=== PATIENT | female | born 1955 | race Caucasian/White ===

== ENCOUNTER 2024-10-03 12:49 | Outpatient (AMB) | payer MEDICARE, MEDICAID, SELFPAY ==
--- NOTE | 2024-10-03 13:02 | A.OFFVIS_ITS ---
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 Allergies metformin Allergy (Severe, Verified 10/03/24 13:13) Diarrhea milk Allergy (Severe, Verified 10/03/24 13:11) Diarrhea tetracycline Allergy (Severe, Verified 10/03/24 13:13) Joint Pain empagliflozin (From Jardiance) Allergy (Mild, Verified 10/03/24 13:13) vaginal yeast sitagliptin (From Januvia) Allergy (Mild, Verified 10/03/24 13:13) vaginal yeast statins Allergy (Severe, Uncoded 10/03/24 13:13) Muscle Pain Medication List - Last Reconciled 10/03/24 by Micheal Macedo MD amlodipine 5 mg PO DAILY aspirin 81 mg PO DAILY evolocumab (Repatha SureClick) 140 mg subcut Q2W glipizide ER 10 mg PO DAILY hydrochlorothiazide 25 mg PO DAILY insulin glargine (Lantus Solostar U-100 Insulin) units subcut levothyroxine mcg PO lisinopril 20 mg PO BID meclizine mg PO omeprazole 20 mg PO DAILY potassium chloride ER 10 mEq PO DAILY semaglutide (Ozempic) mg subcut HPI Comments Details: The patient is a 68-year-old female presenting with chest pain. The chest pain has been present for approximately one year. The pain is described as discomfort and sometimes sharp, occurring with physical activities such as doing laundry or walking. The patient reports associated symptoms of lightheadedness, dizziness, shortness of breath, and fatigue, particularly after exertion. She also experiences swelling in her legs and knees. The patient has a history of essential hypertension, hyperlipidemia, diabetes mellitus, thyroid disorder, and osteoporosis. 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 CAT scan of the chest done for pulmonary nodules had reported [id number] coronary artery calcification. Additionally, per patient she also had a carotid ultrasound that had described stenosis. [facility] Medical History (Updated 10/03/24 @ 14:12 by Micheal Macedo MD) High cholesterol High blood pressure Diabetes Surgical History (Updated 10/03/24 @ 13:21 by Afshan Gonzales) History of thyroid surgery Family History (Updated 10/03/24 @ 13:22 by Afshan Gonzales) Mother Heart failure Father Stroke Heart attack Heart failure Colon cancer Social History (Updated 10/03/24 @ 13:22 by Afshan Gonzales) Alcohol intake: never Patient Tobacco Use Status: Former Tobacco user Review of Systems Const Denies weakness ENT Denies dizziness Card Reports chest pain, Reports chest pain at rest, Reports chest pain with activity, Denies syncope, Denies rapid heart rate, Denies pedal edema, Denies edema, Reports irregular heart rhythm, Denies leg edema, Denies lightheadedness, Reports palpitations, Reports dyspnea, Reports dyspnea on exertion and Reports orthopnea Resp Denies cough, Reports dyspnea and Reports dyspnea on exertion GI Denies hematochezia and Denies change in stool character Musc Denies abnormal gait, Denies muscle cramps, Denies muscle weakness, Denies numbness, Denies radiating pain into limb and Denies tingling Neuro Denies abnormal gait, Denies dizziness, Denies syncope, Denies numbness, Denies tingling and Denies weakness Endo Reports palpitations Physical Exam Vital Signs: Last Vital Signs Pulse 69 10/03/24 13:09 BP 140/68 H 10/03/24 13:09 BMI result Body Mass Index 33.1 Const General: comfortable and no acute distress Orientation/consciousness: patient oriented x3 HEENT Other: Unremarkable Head: Yes normal to inspection Neck Neck: Yes normal visual inspection Chest Chest palpation & inspection: normal inspection of the chest Resp Auscultation: clear to auscultation bilaterally Cardio Palpation: normal PMI Heart sounds: S1 normal heart sound present, S2 normal heart sound present, no gallops, no murmurs and no rubs GI Palpation (GI): Soft to palpation Back/Spine/Pelvis Other: unremarkable Skin General skin exam: no rashes or lesions noted Neuro General: patient oriented x3 Extrem General: Yes normal to inspection Psych Mental Status: mental status grossly normal Office Procedures EKG Details: EKG with underlying sinus rhythm at 69/Min; sinus arrhythmias; no ischemic changes; [place] [id number], Complete Assessment & Plan Assessment & Plan (1) Atherosclerotic cardiovascular disease: Code(s): I25.10 - Atherosclerotic heart disease of [place] coronary artery without angina pectoris Category: Medical (2) Precordial chest pain: Code(s): R07.2 - Precordial pain Category: Medical (3) Type 2 diabetes mellitus with unspecified complications: Code(s): E11.8 - Type 2 diabetes mellitus with unspecified complications Category: Medical (4) Primary hypertension: Code(s): I10 - Essential (primary) hypertension Category: Medical (5) Hyperlipidemia, unspecified: Code(s): E78.5 - Hyperlipidemia, unspecified Category: Medical Plan The plan includes initiating a stress test to evaluate the chest pain and determine the presence of any coronary artery blockages. If the stress test results are abnormal, an angiogram will be considered to further assess the coronary arteries. An ultrasound of the heart will be performed to evaluate cardiac function and identify any structural abnormalities. Coordination with the patient's primary care physician will be necessary to obtain recent lab results and ensure comprehensive management of her chronic conditions. Discussion Notes I discussed with the patient the likelihood of coronary artery blockages given her symptoms and cardiac risk factors. We talked about starting with a stress test and potentially proceeding to an angiogram. I explained the importance of evaluating her heart function through an ultrasound and coordinating with her primary care physician for lab results. Patient was informed and verbally consented to the use of an ambient scribe for clinic note documentation during this visit. Orders: Orders CA echo transthoracic complete Today I25.10 - Atherosclerotic heart disease of [place] coronary artery without angina pectoris, R07.2 - Precordial pain CA stress test Today R07.2 - Precordial pain NM cardiolite stress test Today R07.2 - Precordial pain Patient Instructions: - Schedule a stress test and echocardiogram as soon as possible. - Monitor for any worsening of symptoms and seek immediate care if necessary. Coding Level of Care Code New Pt Level 4 (90716) Complex EM visit Add On G2211 Diagnoses Atherosclerotic cardiovascular disease I25.10 Precordial chest pain R07.2 Type 2 diabetes mellitus with unspecified complications E11.8 Primary hypertension I10 Hyperlipidemia, unspecified E78.5 CPT Codes EKG - CPT: 25305-[id number], Complete ([id number])
[2024-10-03 13:09] VITALS: BP 140/68; PULSE 69; BMI 33.1
--- OUTSIDE RECORDS SUMMARY | 2024-10-03 13:42 | XMS_ITS | Clinical Summary ---
Author Organization [facility] Address [address] [place] [address] Care Team Providers Care Voting Machine Mechanic Name Role Phone Afshan Quiroz Sophie Primary Care Provider [phone] Allergies Active Allergy Reactions Criticality Noted Date Comments Amoxicillin Yeast infection 12/16/2016 Cyclobenzaprine Muscle Pain 12/16/2016 Fluconazole Constipation 12/16/2016 Milk Unknown 12/16/2016 Simvastatin Muscle Pain 12/16/2016 Tetracyclines Unknown Medications * This document contains information received from the source organization and may not represent a complete record from that organization. ACETAMINOPHEN ORAL as needed (pain). Ac tive CALCIUM CARBONATE (CALCIUM 500 ORAL) Calcium TABS Refills: 0 Active Active hydroCHLOROth iazide (MICROZIDE) 12.5 mg capsule HydroCHLOROthiazide CAPS 25MG Qday, Quantity: 0; Refills: 0 Started 13-Jan-2007 Active 01/14/20 07 Active levothyroxine (SYNTHROID, LEVOTHROID) 112 mcg tablet Levothyroxine Sodium 112 MCG Oral Tablet TAKE 1 TABLET DAILY Quantity: 90; Refills: 0 Started 13-Jan-2007 Active 01/14/20 07 Active lisinopril (PRINIVIL,ZES TRIL) 30 mg tablet Lisinopril TABS 10MG Qday, Quantity: 0; Refills: 0 Started 13-Jan-2007 Active 01/14/20 07 Active POTASSIUM ORAL 10 mEq. Active simvastatin (ZOCOR) 80 mg tablet Simvastatin TABS Refills: 0 Active Active acetaminophen (TYLENOL) 500 mg tablet Acetaminophen TABS PRN PAIN Refills: 0 Started 14-Jul-2007 Active 07/14/19 08 Active lisinopril (PRINIVIL,ZES TRIL) 20 mg tablet Take 20 mg by mouth 2 times a day. Active cyanocobalami n 1,000 mcg tablet Take 1,000 mcg by mouth daily. Active zinc 50 mg tablet Take by mouth. Activ e metFORMIN (GLUCOPHAGE) 500 mg tablet Take 500 mg by mouth 2 times a day with meals. Active lovastatin (MEVACOR) 40 mg tablet Take 40 mg by mouth nightly. Active levothyroxine (SYNTHROID, LEVOTHROID) 125 mcg tablet Take 125 mcg by mouth daily. Active magnesium gluconate (MAGONATE) 27 mg (500 mg) tablet Take 500 mg by mouth daily. Active OMEGA-3S/DHA/ EPA/FISH OIL/D3 (VITAMIN-D + OMEGA-3 ORAL) Take 100 % by mouth daily. Active aspirin 81 mg EC tablet Take 81 mg by mouth daily. 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 Lumbar radiculopathy, chronic 02/19/2015 Lumbar spondylosis 02/19/2015 Myofascial pain 02/19/2015 Hip bursitis 02/19/2015 Leiomyoma 02/19/2015 Chronic Pain Syndrome 06/26/2008 Vision problems 06/26/2008 Family History Medical History Relation Name Comments Other Daughter Family history of Papillary thyroid carcinoma Other Father Family History of colon cancer Relation Name Status Comments Daughter Father Social History Tobacco Use Types Packs/Day Years Used Date Smoking Tobacco: Former Cigarettes Comments Unknown Sex and Gender Information Value Date Recorded Sex Assigned at Not on file Legal Sex Female 4:46 AM EDT Gender Identity Not on file Sexual Orientation Not on file Last Filed Vital Signs Vital Sign Reading Time Taken Comments Blood Pressure 131/77 12/17/2016 8:57 AM EDT Pulse 61 12/17/2016 8:57 AM EDT Temperature - - Respiratory Rate - - Oxygen Saturation - - Inhaled Oxygen Concentration - - Weight 86.2 kg (190 lb) 12/17/2016 8:57 AM EDT Height 154.9 cm (5' 1 ) 12/17/2016 8:57 AM EDT Body Mass Index 35.9 12/17/2016 8:57 AM EDT Plan of Treatment Health Maintenance Due Date Last Done Comments Cologuard 1955 Colon Cancer Screening 1955 Colonoscopy 1955 FOBT / Fit Test 1955 Hepatitis C Screening [address] Lung Cancer Screening (Baseline) 2004 Osteoporosis Screening 2004 Zoster Vaccines (1 of 2) 2004 Basic Metabolic Panel 12/31/2017 12/31/2016 , 02/01/2014, 07/09/2007 DTaP,Tdap,and Td Vaccines (1 - Tdap) 12/07/2018 2018 Pneumococcal Vaccine: 50+ Years (2 of 2 - PCV20 or PCV21) 12/25/2020 12/26/2019 Mammogram 10/11/2023 10/10/2021, 09/17, 10/10/2021 COVID-19 Vaccine ( - season) 2023 12/05/2020, 05/02/2020, 04/10/2020 Alcohol/Substance Use Screening 02/17/2024 Depression Screening and Follow-Up 02/17/2024 Health Care Proxy Review 02/17/2024 Social Drivers of Health Annual Screening 02/17/2024 Influenza Vaccine (#1) 2024 , 12/26/2019, 2018, Additional history exists RSV Vaccine (60+ years old and patients) (1 - 1-dose 75+ series) 2029 Hepatitis B Vaccines Aged Out No long er eligible based on patient's age to complete this topic Procedures * Due to [place] Propers law, this organization might not be sharing negative HIV tests. Procedure Name Priority Date/Time Associated Diagnosis Comments PATRICIA LEFT STEREOTACTIC BREAST BIOPSY Routine 10/10/2021 10:03 AM EDT Breast microcalcifications BASIC METABOLIC PANEL, OUTSIDE LAB Routine 12/31/2016 from Last 3 Months or Most Recently Relevant to Health Maintenance Results * Due to [place] state law, this organization might not be sharing negative HIV tests. * [facility] Left Stereotactic Breast Biopsy (10/10/2021 10:03 AM EDT) Anatomical Region Laterality Modality Breast Left Mammography Addenda Addendum by Allison Cardenas MD on 10/11/2021 8:45 PM EDT The results of the left breast biopsy demonstrate benign breast tissue with periductal sclerosis/fibroadenomatous change with associated microcalcifications. Negative for malignancy. These results are benign and concordant with imaging. Return to annual screening mammography is recommended. The patient's next bilateral screening mammogram will be due in July,. Narrative 10/10/2021 10:26 AM EDT [facility] Left Stereotactic Breast Biopsy PATRICIA Left Breast Specimen NC [facility] Left Diagnostic Digital Mammo Post US/MRI/Stereo INDICATIONS Kasi Sarmiento is a 65 y.o. female and is seen for: [facility] Left Stereotactic Breast Biopsy PATRICIA Left Breast Specimen NC [facility] Left Diagnostic Digital Mammo Post US/MRI/Stereo. PROCEDURE The procedure was explained to the patient including benefits and alternatives. The risks, including but not limited to infection and bleeding, were reviewed and the patient agreed to undergo the procedure, signing the consent form. Medications and allergies were reviewed. A timeout procedure was performed. The breast was prepped for the procedure and the area was anesthetized with a local anesthetic. The patient's Left breast was imaged with the [facility] stereotactic biopsy unit, and the following findings were obtained: Grouped calcifications in the left central breast. An Eviva needle was placed in the target using superior approach. Then one pass was made through the area and six specimens were obtained. A stoplight shaped micromarker was placed at the site of the procedure. Specimen radiograph demonstrates calcifications in some of the core samples. COMPLICATIONS The patient experienced no complications during the procedure. POST PROCEDURE MAMMOGRAM The patient was then moved to a digital mammographic room where CC, MLO and ML90 full field digital mammographic images of the breast were obtained. These show satisfactory placement of the micromarker. IMPRESSION Successful stereotactic guided core biopsy of grouped calcifications in the left upper central breast. Pathology pending. Once the biopsy results are known concordance may be determined and an addendum to this report may be issued. As the attending physician, I certify that I was present in the room during the entire procedure. I have personally reviewed the images and agree with the above report. If this radiology report contains a blank impression section, it is an incomplete radiology report. Please contact the interpreting radiologist or applicable radiology division as soon as possible to obtain the completed interpretation. Afshan Quiroz IMG BI PROCEDURES Edited Result - Final * Basic Metabolic Panel, Outside Lab (12/31/2016) Blood specimen (specimen) Structure of peripheral vein / Unknown us Angel Harden MD LAB BLOOD ORDERABLES Final Res ult from Last 3 Months or Most Recently Relevant to Health Maintenance Insurance 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
== END 2024-10-03 13:36 | disposition home or self-care (01) ==
LOC: HO.HCS 12:50
PROVIDERS: Visit Provider Internal Medicine
DX: I25.10 Atherosclerotic heart disease of native coronary artery without angina pectoris (principal); R07.2 Precordial pain; E11.8 Type 2 diabetes mellitus with unspecified complications; I10 Essential (primary) hypertension; E78.5 Hyperlipidemia, unspecified
CPT/HCPCS: 93010; 99204; G2211

== ENCOUNTER → 2024-10-03 12:49 | Outpatient (BNVA) | payer MEDICARE, MEDICAID, SELFPAY | PROVIDERS: Visit Provider Internal Medicine | DX: R07.2 Precordial pain (principal); I25.10 Atherosclerotic heart disease of native coronary artery without angina pectoris; E11.8 Type 2 diabetes mellitus with unspecified complications; I10 Essential (primary) hypertension; E78.5 Hyperlipidemia, unspecified | CPT/HCPCS: 93005; 99202 ==

== ENCOUNTER → 2024-11-08 13:43 | Outpatient (REF) | payer MEDICARE, MEDICAID, SELFPAY ==
--- NOTE | 2024-11-08 13:47 | CA_ITS ---
Transthoracic Echocardiogram Amended Patient (Last, First, Middle): Kasi Sarmiento, Gender: F Date of : 1955 Age: 68 Procedure Date: 11/08/2024 Procedure Type: Transthoracic Echocardiogram Location: OP Height: 154.94 cm Weight: 81.65 kg BSA: 1.81 m2 Heart Rate: bpm BP: 139 / 75 mmHg Clinical Advisor: Referring MD: Micheal Macedo MD Symptoms: I25.10 - Atherosclerotic heart disease of [place] coronary artery without... Study Quality: Adequate ECG Rhythm: Sinus Conclusions: - The left ventricular systolic function is normal. The calculated ejection fraction is 61% by biplane method. - No obvious valvular pathology seen on this study. - (requested to sign again) Findings Left Ventricle Normal left ventricular cavity size. There is mildly increased left ventricular wall thickness. The left ventricular systolic function is normal. The calculated ejection fraction is 61% by biplane method. There is no evidence of regional wall motion abnormalities. Diastolic function is normal for age. Right Ventricle Normal right ventricular cavity size. There is mildly decreased right ventricular systolic function. Aortic Valve There is a normal trileaflet aortic valve. There is no aortic valve stenosis. There is no aortic valve regurgitation. Mitral Valve The mitral valve appears normal. There is no mitral valve regurgitation. There is no mitral valve stenosis. Pulmonic Valve The pulmonic valve is likely normal. Tricuspid Valve Normal tricuspid valve structure. There is trace tricuspid valve regurgitation. There is no evidence of pulmonary hypertension. Great Vessels The asc aorta is normal in size. Venous The inferior vena cava is normal in size and collapses greater than 50% with inspiration. Pericardium/Pleural There is no evidence of pericardial effusion. Prior Study Comparison No prior study available for comparison. Recommendations, Care & Conclusions No obvious valvular pathology seen on this study. Measurements 2D Linear Measurements IVSd: 1.03 0.6-0.9/0.6-1.0 cm LVIDd: 3.40 3.9-5.3/4.2-5.9 cm LVIDd Index: 1.88 2.4-3.2/2.2-3.1 cm/m2 LVIDs: 2.40 2.0-3.6 cm LVPWd: 1.03 0.7-1.1 cm Ao Root: 2.80 2.1-3.5 cm LA Diam: 3.10 2.7-3.8/3.0-4.0 cm LAIDs Index: 1.71 1.5-2.3 cm/m2 LV Mass: 128.41 67-162/88-224 g LV Mass Index: 70.94 43-95/49-115 g/m2 LVOT Diam: 2.10 3.0+(-)1.3 cm 2D Volumes LA Vol: 27.00 2D Systolic Function EF 4C: 58.10 >55% EF 2C: 67.80 >55% EF BiP: 61.20 >55% Mitral Valve MV Pk E: 0.78 MV PK A: 0.81 MV Decel Time: 202.00 E/A: 1.00 E'Lateral: 11.10 E'Medial: 7.83 E/E' Med: 9.90 E/E' Lat: 7.00 PHT: 59.00 MVA PHT: 3.73 Decel [place]: 3.84 Aortic Valve AoV Pk Sunny: 1.56 AoV Mn Sunny: 0.95 AoV VTI: 0.38 AoV Pk Grad: 10.00 Aov Mn Grad: 4.00 MELISSA Cont.VTI: 2.67 LVOT LVOT Pk Sunny: 1.15 LVOT Mn Sunny: 0.71 LVOT VTI: 0.30 LVOT Pk Grad: 5.00 LVOT Mn Grad: 3.00 LVOT Diam: 2.10 LVOT Area: 3.46 Diastolic Function MV Pk E: 0.78 MV Pk A: 0.81 E/A: 1.00 E'Medial: 7.83 E/E' Med: 9.90 E' Laterial: 11.10 E/E' Lat: 7.00 Right Ventricle TAPSE (mm): 18.00 TVS' Sunny: 9.00 Tricuspid Valve TR Pk Sunny: 1.57 TR Pk Grad: 10.00 RA Press: 3.00 RVSP: 13.00 Great Vessels Aorta Ao Root-2D: 2.80 2.0-3.7 cm Ao Asc: 3.00 2.1-3.4 cm Pulmonary Valve PV Pk Sunny: 0.78 Peak PV Grad: 2.00 Updated in Other Vendor System with Status of Final Micheal Macedo MD electronically signed on 11/14/2024 11:14:27 AM with status of Final
--- OUTSIDE RECORDS SUMMARY | 2024-11-08 16:54 | XMS_ITS | Encounter Summary ---
Author Organization [facility] Address [address] [place] [address] Phone Care Team Providers Care Clerk General Office Name Role Phone Afshan Quiroz MD Primary Care Provider + Encounter Details Date Type Department Care Team (Late st Contact Info) Description 03/26/2018 Procedure Pass [facility] PERIOP DEPT [address] [place] [address] Social History Tobacco Use Types Packs/Day Years Used Date Smoking Tobacco: Former Cigarettes Q uit: 1996 Smokeless Tobacco: Never Alcohol Use Standard Drinks/Week Comments No 0 (1 standard drink = 0.6 oz pur e alcohol) Comments No Sex and Gender Information Value Date Recorded Sex Assigned at Not on file Legal Sex Female 1:46 PM EST Gender Identity Not on file Sexual Orientation Not on file documented as of this encounter Plan of Treatment Not on file documented as of this encounter Visit Diagnoses Not on filedocumented in this encounter Care Teams Clerk General Office Relationship Specialty Start Date End Date Afshan Quiroz MD [address] [place] [address] [address] [place] [id number] PCP - General Family Medicine 03/18/17 documented as of this encounter Additional Source Comments The information contained in this document represents components of the legal health record. It is not the complete legal health record.[facility]
--- OUTSIDE RECORDS SUMMARY | 2024-11-08 16:54 | XMS_ITS | Encounter Summary ---
Author Organization [facility] Address [address] [place] [address] Phone Care Team Providers Care Silverware Buffer Name Role Phone Afshan Quiroz MD Primary Care Provider + Encounter Details Date Type Department Care Team (Late st Contact Info) Description 06/08/2017 Procedure Pass [facility], [facility] [address] [place] [address] Social History Tobacco Use Types Packs/Day Years Used Date Smoking Tobacco: Former Smokeless Tobacco: Never Alcohol Use Standard Drinks/Week Comments No 0 (1 standard drink = 0.6 oz pur e alcohol) Comments Unknown Sex and Gender Information Value Date Recorded Sex Assigned at Not on file Legal Sex Female 1:46 PM EST Gender Identity Not on file Sexual Orientation Not on file documented as of this encounter Plan of Treatment Not on file documented as of this encounter Visit Diagnoses Not on filedocumented in this encounter Care Teams Silverware Buffer Relationship Specialty Start Date End Date Afshan Quiroz MD [address] [facility] [address] [place] [id number] PCP - General Family Medicine 03/18/17 documented as of this encounter Additional Source Comments The information contained in this document represents components of the legal health record. It is not the complete legal health record.[facility]
--- OUTSIDE RECORDS SUMMARY | 2024-11-08 16:54 | XMS_ITS | Clinical Summary ---
Author Organization [facility] Address [address] [facility] [address] [place] [address] Phone Care Team Providers Care Senior Examiner Name Role Phone Afshan Quiroz MD Primary Care Provider + Allergies Active Allergy Reactions Criticality Noted Date Comments Llfotmr-Vmy-Ajh Reductase Inhibitors 09/17/2017 Muscle aches Tetracyclines 06/08/2017 Unsure of reaction Medications levothyroxine (SYNTHROID, LEVOTHROID) 125 MCG tablet Take 125 mcg by mouth every morning. Active lisinopril (PRINIVIL,ZESTRI L) 20 MG tablet Take 20 mg by mouth 2 (two) times a day. Active hydroCHLOROthiaz pancho (HYDRODIURIL) 25 MG tablet Take 25 mg by mouth daily. Active lovastatin (MEVACOR) 40 MG tablet Take 40 mg by mouth nightly. Active metFORMIN (GLUCOPHAGE) 500 MG tablet Take 500 mg by mouth 2 (two) times a day with meals. Active amLODIPine (NORVASC) 5 MG tablet Take 5 mg by mouth daily. Active magnesium 200 mg Tab Take by mouth. Active cyanocobalamin (VIT B-12) 1000 MCG tablet Take 100 mcg by mouth daily. Active potassium chloride (KLOR-CON) 10 MEQ ER tablet Take 10 mEq by mouth 2 (two) times a day. Active Ca cit-D3-mag#11-zi gl-ioki-dtd-bor (CALTRATE 600+D) 600 mg calcium- 800 unit-50 mg Tab Take 1 tablet by mouth daily. Active glipiZIDE (GLUCOTROL) 10 MG 24 hr tablet Take 10 mg by mouth daily. Active Active Problems Problem Noted Date Diagnosed Date Hypertension 03/26/2018 Hyperlipidemia 03/26/2018 Diabetes mellitus 03/26/2018 Overview (03/26/2018): Niddm Disorder of thyroid 03/26/2018 Family History Medical History Relation Comments Diabetes Father Hypertension Father Diabetes Mother Hypertension Mother Macular degeneration Mother Relation Status Comments Father Mother Social History Tobacco Use Types Packs/Day Years Used Date Smoking Tobacco: Former Cigarettes Q uit: 1996 Smokeless Tobacco: Never Alcohol Use Standard Drinks/Week Comments No 0 (1 standard drink = 0.6 oz pur e alcohol) Education Answer Date Recorded Are you interested in more education? Not on melanie e 06/13/2022 Are you concerned about learning? Not on file 06/13/2022 No 06/13/2022 No 06/13/2022 Digital Access Answer Date Recorded No 07/12/2022 No 07/12/2022 No 07/12/2022 Reliable internet access at home? Not on file 07/12/2022 Device with a working camera? Not on file Comments No Sex and Gender Information Value Date Recorded Sex Assigned at Not on file Legal Sex Female 1:46 PM EST Gender Identity Not on file Sexual Orientation Not on file Last Filed Vital Signs Vital Sign Reading Time Taken Comments Blood Pressure 136/84 03/26/2018 4:30 PM EST Pulse 91 03/26/2018 4:30 PM EST Temperature 36.7 C (98 F) 03/26/2018 3:07 PM EST Respiratory Rate 22 03/26/2018 4:30 PM EST Oxygen Saturation 97% 03/26/2018 5:00 PM EST Inhaled Oxygen Concentration - - Weight 88.5 kg (195 lb) 03/26/2018 1:11 PM EST Height 157.5 cm (5' 2 ) 03/26/2018 1:11 PM EST Body Mass Index 35.67 03/26/2018 1:11 PM EST Plan of Treatment Health Maintenance Due Date Last Done Comments BLOOD PRESSURE 1955 CREATININE LEVEL 1954 HEMOGLOBIN A1C 1954 POTASSIUM LEVEL 1954 DEPRESSION SCREENING 1966 SMOKING Hx and SMOKELESS TOBACCO SCREENING 12/07/1967 HEPATITIS C SCREENING 1972 MAMMOGRAM 1994 COLOGUARD 12/07/1999 COLONOSCOPY 12/07/1999 COLORECTAL CANCER SCREENING 12/07/1999 FIT TEST 12/07/1999 FOBT 12/07/1999 SIGMOIDOSCOPY 12/07/1999 VIRTUAL COLONOSCOPY 12/07/1999 ZOSTER VACCINES (1 of 2) 2004 TSH LEVEL 06/08/2018 06/08/2017 DIABETIC EYE EXAM 07/14/2019 07/13/2018, , 07/13/2018, Additional history exists OSTEOPOROSIS SCREENING INITIAL (ONE-TIME) 12/07/2019 PNEUMOCOCCAL VACCINES (50+ years) (2 of 2 - PPSV23) 02/20/2020 12/26/2019 INFLUENZA VACCINE (#1) 2024 0, 2018, 10/13/2017, Additional history exists COVID-19 VACCINE ( - season) 2024 05/02/2020, 04/10/2020 Adult Td,Tdap Booster 2028 2018 RSV VACCINE (1 - 1-dose 75+ series) 2029 HEPATITIS A VACCINES Aged Out No long er eligible based on patient's age to complete this topic HIB VACCINES Aged Out No longer eligi ble based on patient's age to complete this topic MENINGOCOCCAL VACCINES (ACWY) Aged Out No longer eligible based on patient's age to complete this topic MENINGOCOCCAL VACCINES (B) Aged Out N o longer eligible based on patient's age to complete this topic Medical Devices Implanted Type Area Apple Checker Device Identifier Shelf Expiration Date Model / Serial / Lot Lens Lens Description:IOL Procedures Procedure Name Priority Date/Time Associated Diagnosis Comments TSH WITH REFLEX Routine 06/08/2017 12:09 PM EDT Diplopia from Last 3 Months or Most Recently Relevant to Health Maintenance Results * TSH with reflex (06/08/2017 12:09 PM EDT) SCREENING PANEL: TSH 1.44 0.40 - 5.00 uIU/mL [facility] Comment:NOTE: New method as of August 14, 2009. Blood 06/08/2017 12:0 9 PM EDT 06/08/2017 12:48 PM EDT us Namgary Breen MD LAB BLOOD ORDERABLES Final Res ult [facility] [place] [address], [facility] from Last 3 Months or Most Recently Relevant to Health Maintenance Insurance [employer] POS PPO REPLACEMENT UNIT [address] MEDICARE POS PPO REPLACEMENT [employer] POS PPO REPLACEMENT [employer] POS PPO REPLACEMENT [employer] POS PPO REPLACEMENT [employer] POS PPO REPLACEMENT [employer] POS PPO REPLACEMENT [employer] PPO REPLACEMENT Advance Directives For more information, please contact: [phone] (9AM - 5PM [facility], Thursday-Thursday) Documents on File Type Date Recorded Patient Apiculture Teacher Expl anation Healthcare Proxy 03/29/2018 3:24 PM Care Teams Senior Examiner Relationship Specialty Start Date End Date Afshan Quiroz MD [address] [place] [address] [place] [phone] PCP - General Family Medicine 03/18/17 Additional Source Comments The information contained in this document represents components of the legal health record. It is not the complete legal health record.[facility]
--- OUTSIDE RECORDS SUMMARY | 2024-11-08 16:54 | XMS_ITS | Encounter Summary ---
Author Organization [facility] Address [address] [place] [address] Phone Care Team Providers Care Concrete Form Setter And Finisher Name Role Phone Afshan Quiroz MD Primary Care Provider + Encounter Details Date Type Department Care Team ([facility] st Contact Info) Description 09/23/2017 Procedure Pass [facility] 6TH FL PERIOP DEPT [address] [place] [address] Social History Tobacco Use Types Packs/Day Years [...] on filedocumented in this encounter Care Teams Concrete Form Setter And Finisher Relationship Specialty Start Date End Date Afshan Quiroz MD [address] [place] [address] [address] [place] [phone] PCP - General Family Medicine 03/18/17 documented as of this encounter Additional Source Comments The information contained in this document represents components of the legal health record. It is not the complete legal health record.[facility]
--- OUTSIDE RECORDS SUMMARY | 2024-11-08 16:54 | XMS_ITS | Clinical Summary ---
Author Organization [facility] Address [address] [place] [address] Care Team Providers Care Tree Surgeon Name Role Phone Afshan Quiroz Sophie Primary Care Provider [phone] Allergies Active Allergy Reactions Criticality Noted Date [...] 12/25/2020 12/26/2019 Mammogram 10/11/2023 10/10/2021, 09/17, 10/10/2021 Alcohol/Substance Use Screening 02/17/2024 Depression Screening and Follow-Up 02/17/2024 Health Care Proxy Review 02/17/2024 Social Drivers of Health Annual Screening 02/17/2024 COVID-19 Vaccine (2024- season) 2024 12/05/2020, 05/02/2020, 04/10/2020 Influenza Vaccine (#1) 2024 , 12/26/2019, 2018, Additional history exists RSV Vaccine (60+ years old and patients) (1 - 1-dose 75+ series) 2029 Hepatitis B Vaccines Aged Out No long er eligible based on patient's age to complete this topic Procedures * Due to [place] [employer] law, this organization might not be sharing negative HIV tests. Procedure Name Priority Date/Time Associated Diagnosis Comments PATRICIA LEFT STEREOTACTIC BREAST BIOPSY Routine 10/10/2021 10:03 AM EDT Breast microcalcifications BASIC METABOLIC PANEL, OUTSIDE LAB Routine 12/31/2016 from Last 3 Months or Most Recently Relevant to Health Maintenance Results * Due to [place] state law, this organization might not be sharing negative HIV tests. * [facility] Left Stereotactic Breast Biopsy (10/10/2021 10:03 AM [...] in July,. Narrative 10/10/2021 10:26 AM EDT [facility] Left Stereotactic Breast Biopsy PATRICIA Left Breast Specimen [place] [facility] Left Diagnostic Digital Mammo Post US/MRI/Stereo INDICATIONS Kasi Sarmiento is a 65 y.o. female and is seen for: [facility] Left Stereotactic Breast Biopsy PATRICIA Left Breast Specimen [place] [facility] Left Diagnostic Digital Mammo Post US/MRI/Stereo. PROCEDURE [...] patient's Left breast was imaged with the [facility] stereotactic biopsy unit, and the following [...] Most Recently Relevant to Health Maintenance Insurance [facility] [place] [id number] Advance Directives Documents on File Type Date Recorded Patient On Site Construction Superintendent Expl anation Health Care Proxy 12/17/2016 8:43 AM Care Teams Tree Surgeon Relationship Specialty Start Date End Date Afshan Quiroz [address] [facility] [address] [place] [address] PCP - General 09/04/16
--- OUTSIDE RECORDS SUMMARY | 2024-11-08 16:54 | XMS_ITS | Clinical Summary ---
Author Organization [facility] [address] [facility] Address [address] [place] [address] Phone Care Team Providers Care Customer Service Representative Teacher Name Role Phone Afshan Quiroz MD Primary Care Provider + [phone] Allergies Active Allergy Reactions Criticality Noted Date Comments Irzmaxk-Pyd-Hnh Reductase Inhibitors 01/20/2024 Medications SODIUM BORATE, BULK, MISC Take 1 tablet by mouth daily. Active Ozempic 1 mg/dose (4 mg/3 mL) injection pen 12/09/19 24 Active potassium chloride (MICRO-K) 10 mEq CR capsule 12/20/19 17 Active magnesium gluconate (MAG-G) 27 mg magnesium (500 mg) tablet Take 500 mg by mouth. Active lisinopriL (PRINIVIL,ZEST RIL) 30 mg tablet Lisinopril TABS 10MG Qday, Quantity: 0; Refills: 0 Started 13-Jan-2007 Active 01/14/20 07 Active levothyroxine (SYNTHROID, LEVOTHROID) 125 mcg tablet Take 1 tablet (125 mcg total) by mouth. Active Lantus Solostar U-100 Insulin 100 unit/mL (3 mL) injection pen 11/09/19 24 Active hydroCHLOROthi azide (MICROZIDE) 12.5 mg capsule HydroCHLOROthiazide CAPS 25MG Qday, Quantity: 0; Refills: 0 Started 13-Jan-2007 Active 01/14/20 07 Active glipiZIDE (GLUCOTROL XL) 10 mg 24 hr tablet Take 1 tablet (10 mg total) by mouth 1 (one) time each day at the same time. Active amLODIPine (NORVASC) 5 mg tablet Take 1 tablet (5 mg total) by mouth daily. Ac tive acetaminophen (TYLENOL) 500 mg tablet Acetaminophen TABS PRN PAIN Refills: 0 Started 14-Jul-2007 Active 07/14/19 08 Active POTASSIUM ORAL 10 mEq. Activ e metroNIDAZOLE (METROGEL) 1 % gel Apply topically 1 (one) time each day. Apply to face Active omeprazole OTC (PriLOSEC OTC) 20 mg EC tabletIndicati ons:Epigastric pain,Abnormal abdominal CT scan Take 1 tablet (20 mg total) by mouth 2 (two) times a day. Do not crush, chew, or split. 60 tablet 11 01/20/20 24 2024 Active multivitamin tablet Take 1 tablet by mouth 1 (one) time each day. Ac tive omeprazole OTC (PriLOSEC OTC) 20 mg EC tabletIndicati ons:Gastroesop hageal reflux disease, unspecified whether esophagitis present Take 1 tablet (20 mg total) by mouth 2 (two) times a day. Do not crush, chew, or split. 180 tablet 3 02/12/20 24 2024 Active Active Problems Problem Noted Date Diagnosed Date Epigastric pain 01/20/2024 Assessment & Plan (02/12/2024 2:32 PM EST): Improved with PPI She will continue taking BID Right lower quadrant abdominal pain 01/20/[address] scan 01/20/2024 Surgical History Surgery Date Site/Laterality Comments CHOLECYSTECTOMY APPENDECTOMY THYROIDECTOMY Medical History Medical History Date Comments Hypothyroid Hyperlipidemia Hypertension Diabetes mellitus ([facility] V[facility], [facility] V28) Social History Tobacco Use Types Packs/Day Years Used Date Smoking Tobacco: Former Cigarettes Tobacco Cessation:Counseling Given: Not Answered Alcohol Use Standard Drinks/Week Comments Not Currently 0 (1 standard drink = 0.6 oz pur e alcohol) Interpersonal Safety Answer Date Record ed Physical Abuse 01/28/2024 Verbal Abuse 01/28/2024 Comments No Sex and Gender Information Value Date Recorded Sex Assigned at Not on file Legal Sex Female 8:26 AM EDT Gender Identity Not on file Sexual Orientation Not on file Obstetrics History Last Filed Vital Signs Vital Sign Reading Time Taken Comments Blood Pressure 108/58 01/28/2024 1:52 PM EST Pulse 73 01/28/2024 1:52 PM EST Temperature 36.5 C (97.7 F) 01/28/2024 12:37 PM EST Respiratory Rate 16 01/28/2024 1:52 PM EST Oxygen Saturation 100% 01/28/2024 1:52 PM EST Inhaled Oxygen Concentration - - Weight 78.9 kg (174 lb) 02/12/2024 2:10 PM EST Height 154.9 cm (5' 1 ) 02/12/2024 2:10 PM EST Body Mass Index 32.88 02/12/2024 2:10 PM EST Plan of Treatment Health Maintenance Due Date Last Done Comments Breast Cancer Screening 1954 Diabetes: Annual GFR (Glomer ular Filtration Rate) 1954 Diabetes: Annual Foot Exam 1964 Diabetes: Annual Retina Eye Exam 1964 DTaP,Tdap,and Td Vaccines (1 - Tdap) 1973 Pneumococcal Vaccine: 50+ Ye ars (1 of 1 - PCV) 2004 Zoster Vaccines (1 of 2) 2004 RSV Immunization Adult Patie nts (1 - Risk 60-74 years 1-dose series) 2014 Cholesterol Screening (Lipid Panel) 12/05/2023 Colorectal Cancer Screening: Colonoscopy 12/05/2023 Hepatitis C Screening 12/05/2023 Medicare Annual Wellness Visit 12/05/2023 Osteoporosis Screening (Bone Density Screening) 12/05/2023 Social Influencers of Health Screening 12/05/2023 Diabetes: Annual Urine Albumin-Creatinine Ratio (uACR) 01/21/2024 Diabetes: Blood Sugar Contro l Test (HGBA1C) 01/21/2024 Hypertension/CHF/CAD Annual BMP Blood Test 01/21/2024 Depression Screening 02/17/2024 COVID-19 Vaccine ( - 2023-2 5 season) 2024 Influenza Vaccine (#1) 2024 Falls Risk Assessment 01/27/2025 01/28/2024 HIB Vaccines Aged Out No longer eligi ble based on patient's age to complete this topic HPV Vaccines Aged Out No longer eligi ble based on patient's age to complete this topic Hepatitis A Vaccines Aged Out No long er eligible based on patient's age to complete this topic Hepatitis B Vaccines Aged Out No long er eligible based on patient's age to complete this topic IPV Vaccines Aged Out No longer eligi ble based on patient's age to complete this topic MMR Vaccines Aged Out No longer eligi ble based on patient's age to complete this topic Meningococcal ACWY Vaccine Aged Out N o longer eligible based on patient's age to complete this topic Meningococcal B Vaccine Aged Out No l onger eligible based on patient's age to complete this topic RSV Immunization Patients Un joon 20 months Aged Out No longer eligible b ased on patient's age to complete this topic Varicella Vaccines Aged Out No longer eligible based on patient's age to complete this topic Insurance MEDICAID - [place] [facility] [employer] Care Teams Customer Service Representative Teacher Relationship Specialty Start Date End Date Afshan Quiroz MD [address] [place] [phone] PCP - General Family Medicine 12/05/23
== END ==
LOC: HO.CARD 13:43
PROVIDERS: Visit Provider Internal Medicine
DX: I25.10 Atherosclerotic heart disease of native coronary artery without angina pectoris (principal); R07.2 Precordial pain
CPT/HCPCS: 93306

== ENCOUNTER → 2024-11-08 13:47 | Outpatient (BNV) | payer MEDICARE, MEDICAID, SELFPAY | PROVIDERS: Visit Provider Internal Medicine | DX: I25.10 Atherosclerotic heart disease of native coronary artery without angina pectoris (principal) | CPT/HCPCS: 93306 ==

== ENCOUNTER → 2024-11-22 10:10 | Outpatient (REF) | payer MEDICARE, MEDICAID, SELFPAY ==
--- NOTE | ~2024-11-22 | NM_ITS ---
EXERCISE MYOCARDIAL PERFUSION STUDY INDICATION: Precordial chest pain to evaluate for myocardial ischemia TECHNIQUE: The patient was brought in for an exercise perfusion study on 11/22/2024. Patient performed exercise as per Lamont protocol and was injected 30 mCi of sestamibi once target heart rate was achieved. Images were obtained using the SPECT gamma camera interlaced with the gating device. Images were obtained in supine position. Resting perfusion study was performed on 11/23/2024. Patient was administered 30 mCi of sestamibi intravenously at rest. Images were then obtained in supine position. Images obtained without without CT attenuation. Total DLP 119 mGy-cm. Images were processed with the software and compared side to side in short axis, horizontal long axis and vertical long axis views. FINDINGS: Raw images were reviewed The stress perfusion study showed nonattenuated images show mildly reduced uptake in the basal and mid inferior wall of the LV myocardium. Remainder of the LV myocardium is normally perfused. Attenuated corrected images show mildly reduced uptake in the apex of the LV myocardium.. The gated study shows normal LV systolic function with calculated LVEF of 61%. LV cavity is normal in size. The gated study shows normal systolic wall thickening and contraction of segments. Resting study shows no change in perfusion pattern compared to stress perfusion study. Gating at rest reveals normal systolic wall motion with ejection fraction at 59%. The findings are consistent with normal myocardial perfusion. NM/NM cardiolite stress test IMPRESSION: 1. Myocardial perfusion imaging study shows normal myocardial perfusion. 2. Gated LVEF is 61%. 3. Transient ischemic dilatation not present. EKG revealed negative for ischemia. Electronically signed by: Jozef Sheriff MD 11/23/2024 03:51 PM EDT
--- NOTE | 2024-11-22 10:13 | CA_ITS ---
Acquisition Time: 2024-11-22 10:32:18 Total Exercise Time: 00:05:06 Test Indications: cp sob Medications: see h&p Protocol: RAINE Max HR: 137 BPM 90% of Pred: 151 BPM Max BP: 170/68 mmHG Max Work Load: 4.8 METS Exercise stress test with exercise 5 min 6 sec of Raine stage 1 ( at 3 minutes incline was increased to 11%), with mild sob and 1-2/10 mid chest discomfort, with isolated PVC and one 4 beat multifocal ventricular run during exercise, with normotensive response to exercise, without EKG changes meeeting criteria for ischemia. In recovery her breathing normalized and chest discomfort resolved. Nuclear images pending. Test reviewed with Dr Sheriff. Referred By: Micheal Maecdo Electronically Signed By: DOUG SPICER
--- OUTSIDE RECORDS SUMMARY | 2024-11-22 12:04 | XMS_ITS | Clinical Summary ---
Author Organization [facility] [address] [facility] Address [address] [place] [address] Phone Care Team Providers Care Steam Powerplant Supervisor Name Role Phone Afshan Quiroz MD Primary Care Provider + [phone] Allergies Active Allergy Reactions Criticality Noted Date Comments Jsvmhbg-Jib-Qgg Reductase Inhibitors 01/20/2024 Medications SODIUM BORATE, BULK, [...] Date Comments Hypothyroid Hyperlipidemia Hypertension Diabetes mellitus ([facility] V24, [facility] V28) Social History Tobacco Use Types Packs/Day Years Used Date Smoking Tobacco: Former Cigarettes Tobacco Cessation:Counseling Given: Not Answered Alcohol Use Standard Drinks/Week Comments Not Currently 0 (1 standard drink = 0.6 oz pur e alcohol) Interpersonal Safety Answer Date Record ed Physical Abuse Unrecognized value 01/28/2024 Verbal Abuse Unrecognized value 01/28/2024 Comments No Sex and Gender Information [...] Last Done Comments Breast Cancer Screening 1955 Colorectal Cancer Screening: Colonoscopy 1954 Diabetes: Annual GFR (Glomer ular Filtration Rate) 1954 Diabetes: Annual Foot Exam 1964 Diabetes: Annual Retina Eye Exam 1964 DTaP,Tdap,and Td Vaccines (1 - Tdap) 1973 Pneumococcal Vaccine: 50+ Ye ars (1 of 1 - PCV) 2004 Zoster Vaccines (1 of 2) 2004 RSV Immunization Adult Patie nts (1 - Risk 60-74 years 1-dose series) 2014 Cholesterol Screening (Lipid Panel) 12/05/2023 Hepatitis C Screening 12/05/2023 Medicare Annual Wellness Visit 12/05/2023 Osteoporosis Screening (Bone Density Screening) 12/05/2023 Social Influencers of Health Screening 12/05/2023 Diabetes: Annual Urine Albumin-Creatinine Ratio (uACR) 01/21/2024 Diabetes: Blood Sugar Contro l Test (HGBA1C) 01/21/2024 Hypertension/CHF/CAD Annual BMP Blood Test 01/21/2024 Depression Screening 02/17/2024 COVID-19 Vaccine (1 - 2023-2 5 season) 2024 Influenza Vaccine [...] [place] [facility] [employer] [employer] Care Teams Steam Powerplant Supervisor Relationship Specialty Start Date End Date Afshan Quiroz MD [address] [place] [phone] PCP - General Family Medicine 12/05/23
--- OUTSIDE RECORDS SUMMARY | 2024-11-22 12:04 | XMS_ITS | Clinical Summary ---
Author Organization [facility] Address [address] [facility] [address] [place] [address] Phone Care Team Providers Care Flask Fitter Name Role Phone Afshan Quiroz MD Primary Care Provider + Allergies Active Allergy Reactions Criticality Noted Date Comments Hogbdgg-Vkx-Ood Reductase Inhibitors 09/17/2017 Muscle aches Tetracyclines 06/08/2017 [...] (two) times a day. Active Ca cit-D3-mag#11-zi jr-nioj-khi-bor (CALTRATE 600+D) 600 mg calcium- 800 unit-50 [...] this topic Medical Devices Implanted Type Area Ems Helicopter Pilot Device Identifier Shelf Expiration Date Model / Serial / Lot Lens Lens Description:IOL Procedures Procedure Name Priority Date/Time Associated Diagnosis Comments TSH WITH REFLEX Routine 06/08/2017 12:09 PM EDT Diplopia from Last 3 Months or Most Recently Relevant to Health Maintenance Results * TSH with reflex (06/08/2017 12:09 PM EDT) SCREENING PANEL: TSH 1.44 0.40 - 5.00 uIU/mL [facility] Comment:NOTE: New method as of August 14, 2009. Blood 06/08/2017 12:0 9 PM EDT 06/08/2017 12:48 PM EDT us Namgary Breen MD LAB BLOOD ORDERABLES Final Res [place] [address], [facility] from Last 3 Months or Most Recently Relevant to Health Maintenance Insurance [employer] POS PPO REPLACEMENT UNIT [address] MEDICARE POS PPO REPLACEMENT [employer] PPO REPLACEMENT [employer] POS PPO REPLACEMENT [employer] POS PPO REPLACEMENT [employer] PPO REPLACEMENT [employer] PPO REPLACEMENT [employer] PPO REPLACEMENT Advance Directives For more information, please contact: [phone] (9AM - 5PM [facility], Thursday-Thursday) Documents on File Type Date Recorded Patient Assembly Repairer Expl anation Healthcare Proxy 03/29/2018 3:24 PM Care Teams Flask Fitter Relationship Specialty Start Date End Date Afshan Quiroz MD [address] [place] [address] [place] [phone] PCP - General Family Medicine 03/18/17 Additional Source Comments The information contained in this document represents components of the legal health record. It is not the complete legal health record.[facility]
--- OUTSIDE RECORDS SUMMARY | 2024-11-22 12:05 | XMS_ITS | Encounter Summary ---
Author Organization [facility] Address [address] [place] [address] Phone Care Team Providers Care Detective Captain Name Role Phone Afshan Quiroz MD Primary Care Provider + Encounter Details Date Type Department Care Team (Late st Contact Info) Description 09/23/2017 Procedure Pass [facility] 6TH FL PERIOP DEPT [address] [place] [address] Social History Tobacco Use Types Packs/Day Years [...] on filedocumented in this encounter Care Teams Detective Captain Relationship Specialty Start Date End Date Afshan Quiroz MD [address] [place] [address] [address] [place] [phone] PCP - General Family Medicine 03/18/17 documented as of this encounter Additional Source Comments The information contained in this document represents components of the legal health record. It is not the complete legal health record.[facility]
--- OUTSIDE RECORDS SUMMARY | 2024-11-22 12:05 | XMS_ITS | Encounter Summary ---
Author Organization [facility] Address [address] [place] [address] Phone Care Team Providers Care Stockroom Attendant Name Role Phone Afshan Quiroz MD Primary Care Provider + Encounter Details Date Type Department Care Team (Late st Contact Info) Description 03/26/2018 Procedure Pass [facility] 6TH FL PERIOP DEPT [address] [place] [address] Social History Tobacco Use Types Packs/Day Years [...] on filedocumented in this encounter Care Teams Stockroom Attendant Relationship Specialty Start Date End Date Afshan Quiroz MD [address] [place] [address] [address] [place] [phone] PCP - General Family Medicine 03/18/17 documented as of this encounter Additional Source Comments The information contained in this document represents components of the legal health record. It is not the complete legal health record.[facility]
--- OUTSIDE RECORDS SUMMARY | 2024-11-22 12:05 | XMS_ITS | Encounter Summary ---
Author Organization [facility] Address [address] [place] [address] Phone Care Team Providers Care Screen Maker Name Role Phone Afshan Quiroz MD Primary Care Provider + Encounter Details Date Type Department Care Team (Late st Contact Info) Description 06/08/2017 Procedure Pass [facility] Imaging - CT, [facility] [address] [place] [address] Social History Tobacco Use Types Packs/Day Years [...] on filedocumented in this encounter Care Teams Screen Maker Relationship Specialty Start Date End Date Afshan Quiroz MD [address] [facility] [address] [place] [address] PCP - General Family Medicine 03/18/17 documented as of this encounter Additional Source Comments The information contained in this document represents components of the legal health record. It is not the complete legal health record.[facility]
--- OUTSIDE RECORDS SUMMARY | 2024-11-22 12:05 | XMS_ITS | Clinical Summary ---
Author Organization [facility] Address [address] [place] [address] Care Team Providers Care Heel Seam Rubber Name Role Phone Afshan Quiroz Sophie Primary Care Provider [phone] Allergies Active Allergy Reactions Criticality Noted Date [...] complete this topic Procedures * Due to [place] [employer] law, this organization might not be sharing negative HIV tests. Procedure Name Priority Date/Time Associated Diagnosis Comments PATRICIA LEFT STEREOTACTIC BREAST BIOPSY Routine 10/10/2021 10:03 AM EDT Breast microcalcifications BASIC METABOLIC PANEL, OUTSIDE LAB Routine 12/31/2016 from Last 3 Months or Most Recently Relevant to Health Maintenance Results * Due to [place] state law, this organization might not be sharing negative HIV tests. * [facility] Left Stereotactic Breast Biopsy (10/10/2021 [...] in July,. Narrative 10/10/2021 10:26 AM EDT [facility] Left Stereotactic Breast Biopsy PATRICIA Left Breast Specimen [place] [facility] Left Diagnostic Digital Mammo Post US/MRI/Stereo INDICATIONS Kasi Sarmiento is a 65 y.o. female and is seen for: [facility] Left Stereotactic Breast Biopsy PATRICIA Left Breast Specimen [place] [facility] Left Diagnostic Digital Mammo Post [...] patient's Left breast was imaged with the [facility] stereotactic biopsy unit, and the following findings [...] Most Recently Relevant to Health Maintenance Insurance [facility] [place] [id number] Advance Directives Documents on File Type Date Recorded Patient Parole Supervisor Expl anation Health Care Proxy 12/17/2016 8:43 AM Care Teams Heel Seam Rubber Relationship Specialty Start Date End Date Afshan Quiroz [address] [facility] [address] [place] [address] PCP - General 09/04/16
== END ==
LOC: HO.CARD 10:10
PROVIDERS: Visit Provider Internal Medicine
DX: R07.2 Precordial pain (principal); R06.02 Shortness of breath
CPT/HCPCS: 78452; 93017; A9500

== ENCOUNTER → 2024-11-22 10:13 | Outpatient (BNV) | payer MEDICARE, MEDICAID, SELFPAY | PROVIDERS: Visit Provider Nurse Practitioner Family | DX: R07.2 Precordial pain (principal); I49.3 Ventricular premature depolarization | CPT/HCPCS: 78452; 93016; 93018 ==

== ENCOUNTER 2024-12-28 12:58 | Outpatient (AMB) | payer MEDICARE, MEDICAID, SELFPAY ==
[2024-12-28 12:59] VITALS: BP 126/74; PULSE 62; BMI 34.7
--- NOTE | 2024-12-28 12:59 | A.OFFVIS_ITS ---
Vital Signs 12/28/24 12:59 Height 5 ft Weight 177 lb 11.081 oz BMI 34.7 BP 126/74 Blood Pressure Location Lt brachial Position Sitting Pulse 62 Pulse Source Pulse Oximeter Intake Visit Reasons: follow up echo stress test Body Coverer Required: No Accompanied by: Self / Same As Patient Allergies metformin Allergy (Severe, Verified 12/28/24 13:05) Diarrhea milk Allergy (Severe, Verified 12/28/24 13:05) Diarrhea tetracycline Allergy (Severe, Verified 12/28/24 13:05) Joint Pain empagliflozin (From Jardiance) Allergy (Mild, Verified 12/28/24 13:05) vaginal yeast sitagliptin (From Januvia) Allergy (Mild, Verified 12/28/24 13:05) vaginal yeast statins Allergy (Severe, Uncoded 10/03/24 13:13) Muscle Pain Medication List - Last Reconciled 12/28/24 by Elian Andersen NP amlodipine 5 mg PO DAILY aspirin 81 mg PO DAILY evolocumab (Repatha SureClick) 140 mg subcut Q2W glipizide ER 10 mg PO DAILY hydrochlorothiazide 25 mg PO DAILY insulin glargine (Lantus Solostar U-100 Insulin) units subcut levothyroxine mcg PO lisinopril 20 mg PO BID meclizine mg PO multivitamin (Daily Multi-Vitamin tablet) 1 tab PO DAILY omeprazole 20 mg PO DAILY potassium chloride ER 10 mEq PO DAILY semaglutide (Ozempic) mg subcut HPI Comments Details: This is a 69-year-old female patient coming in for a follow-up visit. Patient with a history of hypertension, hyperlipidemia, diabetes, and obesity. Patient was previously seen in the office for chest discomfort, shortness of breath, and dizziness for which patient underwent an echo and a myocardial perfusion study. Today, patient is here to review those results and is reporting ongoing symptoms of chest pain and shortness of breath mostly with exertion. Patient states that she was started on Repatha by her PCP over month ago and has been compliant with her medications. Patient is otherwise denying any palpitations, dizziness, orthopnea, PND, leg edema, presyncope or syncope. [facility] Medical History High cholesterol High blood pressure Diabetes Surgical History History of thyroid surgery Family History Mother Heart failure Father Stroke Heart attack Heart failure Colon cancer Social History Alcohol intake: never Patient Tobacco Use Status: Former Tobacco user Review of Systems Const Denies daytime sleepiness, Denies difficulty sleeping, Denies snoring, Denies stops breathing during sleep and Denies weakness Card Denies chest pain, Denies rapid heart rate, Denies irregular heart rhythm, Denies claudication, Denies leg edema, Denies lightheadedness, Denies palpitations, Denies dyspnea, Denies dyspnea on exertion, Denies orthopnea, Denies paroxysmal nocturnal dyspnea and Denies slow heart rate Resp Denies cough, Denies dyspnea, Denies dyspnea on exertion and Denies snoring GI Reports no additional complaints, Denies hematochezia, Denies change in stool character and Denies dyspepsia Musc Denies abnormal gait, Denies muscle weakness and Denies numbness Neuro Denies abnormal gait, Denies numbness and Denies weakness Endo Denies palpitations Physical Exam Vital Signs: Last Vital Signs Pulse 62 12/28/24 12:59 BP 126/74 12/28/24 12:59 BMI result Body Mass Index 34.7 Const General: cooperative, healthy appearing, comfortable and no acute distress Orientation/consciousness: patient oriented x3 HEENT Head: Yes normal to inspection Neck Neck: Yes normal visual inspection, Yes trachea midline and Yes supple Chest Chest palpation & inspection: normal inspection of the chest Resp Effort & Inspection: normal respiratory effort Auscultation: clear to auscultation bilaterally, no crackles, no rales, no rhonchi and no wheezes Cardio Jugular venous distension: no JVD Palpation: normal PMI Rate: regular rate Rhythm: regular rhythm Heart sounds: S1 normal heart sound present, S2 normal heart sound present, no click, no gallops, no murmurs and no rubs Peripheral pulses: Peripheral pulses 2+ throughout GI Inspection: Yes normal to inspection Palpation (GI): Soft to palpation Auscultation: normal bowel sounds Skin General skin exam: no rashes or lesions noted Neuro General: patient oriented x3 Extrem General: Yes normal to inspection, No no pedal edema and No calf tenderness Psych Appearance: grossly normal Mental Status: mental status grossly normal Speech and movement: Normal speech and movement present Assessment & Plan Assessment & Plan (1) Precordial chest pain: Code(s): R07.2 - Precordial pain Category: Medical Plan: 04/12/2024- chest CT showed mild atherosclerotic disease of the aorta and moderate to severe coronary artery calcifications. 11/08/2024-echo study showed a normal LV systolic function with an ejection fraction at 61%, with no wall motion abnormalities. 11/22/2024-patient underwent a myocardial perfusion study that showed normal perfusion. Given her ongoing symptoms and multiple risk factors, we will try to get a coronary CTA. Patient's insurance at the end of January and therefore we will try to get this done soon. Continue baby aspirin therapy. Records from PCP shows patient's most recent LDL back in July of 2024 is at 120. Patient was started on Repatha after this and has been on it for a month. We will update this in the next 2 months. Ideally, LDL goal less than 70. Advised on heart healthy diet. (2) Hyperlipidemia, unspecified: Code(s): E78.5 - Hyperlipidemia, unspecified Category: Medical Plan: As above. (3) Primary hypertension: Code(s): I10 - Essential (primary) hypertension Category: Medical Plan: Blood pressure today is well-controlled. Continue current regimen with a blood pressure goal less than 130/80. Advised monitoring blood pressures at home. Advised on a low-salt diet. (4) Type 2 diabetes mellitus with unspecified complications: Code(s): E11.8 - Type 2 diabetes mellitus with unspecified complications Category: Medical Plan: Continue aggressive diabetes management with an A1c goal less than 7%. Followed by endocrinology and PCP. Advised on a heart healthy diet, losing weight, med compliance, and aggressive management of vascular risk factors. Follow up after coronary CTA. In the interim, patient will call the office with any concerns or change in symptoms. Advised to seek ER care in case of exertional chest pain not resolved with rest. This note was generated using voice recognition software. While every effort has been made to ensure accuracy and proper road packer operator, there may be occasional errors that could affect the content or meaning of the described symptoms. Orders: Orders CT Cardiac Coronary Angio Today I25.10 - Atherosclerotic heart disease of [place] coronary artery without angina pectoris, R07.2 - Precordial pain Lipid Panel 2 Months E78.5 - Hyperlipidemia, unspecified Basic Metabolic Panel Today R07.2 - Precordial pain Coding Level of Care Code Est Pt Level 4 (25484) Complex EM visit Add On G2211 Diagnoses Precordial chest pain R07.2 Hyperlipidemia, unspecified E78.5 Primary hypertension I10 Type 2 diabetes mellitus with unspecified complications E11.8 Time Spent (min) 33 Comment Time spent in reviewing the chart, test results, assessment, counseling and documentation.
--- OUTSIDE RECORDS SUMMARY | 2024-12-28 15:33 | XMS_ITS | Clinical Summary ---
Author Organization [facility] Address [address] [place] [phone] Phone Care Team Providers Care Motor Vehicle Licence Examiner Name Role Phone Afshan Quiroz MD Primary Care Provider + Allergies Active Allergy Reactions Criticality Noted Date Comments Ndothcf-Fge-Tmt Reductase Inhibitors 09/17/2017 Muscle aches Tetracyclines 06/08/2017 [...] (two) times a day. Active Ca cit-D3-mag#11-zi oq-pfnw-goc-bor (CALTRATE 600+D) 600 mg calcium- 800 unit-50 [...] VACCINES (50+ years) (2 of 2 - PPSV23, PCV20, or PCV21) 02/20/2020 12/26/2019 INFLUENZA VACCINE (#1) 2024 0, [...] patient's age to complete this topic IPV VACCINES Aged Out No longer eligi ble based on patient's age to complete this topic MENINGOCOCCAL VACCINES (ACWY) Aged Out No longer eligible based on patient's age to complete this topic MENINGOCOCCAL VACCINES (B) Aged Out N o longer eligible based on patient's age to complete this topic Medical Devices Implanted Type Area Concreting Supervisor Device Identifier Shelf Expiration Date Model / Serial / Lot Lens Lens Description:IOL Procedures Procedure Name Priority Date/Time Associated Diagnosis Comments TSH WITH REFLEX Routine 06/08/2017 12:09 PM EDT Diplopia from Last 3 Months or Most Recently Relevant to Health Maintenance Results * TSH with reflex (06/08/2017 12:09 PM EDT) SCREENING PANEL: TSH 1.44 0.40 - 5.00 uIU/mL [facility] Comment:NOTE: New method as of August 14, 2009. Blood 06/08/2017 12:0 9 PM EDT 06/08/2017 12:48 PM EDT us Namgary Breen MD LAB BLOOD BKR ORDERABLES Final Result [facility] [address], [facility] from Last 3 Months or Most Recently Relevant to Health Maintenance Insurance [employer] POS PPO REPLACEMENT [employer] POS PPO REPLACEMENT [address] [place] [address] MEDICARE POS PPO REPLACEMENT [employer] PPO REPLACEMENT [employer] PPO REPLACEMENT [employer] PPO REPLACEMENT [employer] PPO REPLACEMENT Member Subscriber Plan / Payer (Ef fective 2018-Present) Name:Kasi Sarmiento Relation to Subscriber:Self Name:Torsten, Tashasandiegregg Payer ID:Not on file Type:Medicare Address: [place] [id number] [employer] POS PPO REPLACEMENT [address] [place] [address] [employer] POS PPO REPLACEMENT Advance Directives For more information, please contact: [phone] (9AM - 5PM [facility], Thursday-Thursday) Documents on File Type Date Recorded Patient Domestic Violence Advocate Expl anation Healthcare Proxy 03/29/2018 3:24 PM Care Teams Motor Vehicle Licence Examiner Relationship Specialty Start Date End Date Afshan Quiroz MD [address] [place] [phone] PCP - General Family Medicine 03/18/17 Additional Source Comments The information contained in this document represents components of the legal health record. It is not the complete legal health record.[facility]
--- OUTSIDE RECORDS SUMMARY | 2024-12-28 15:33 | XMS_ITS | Clinical Summary ---
Author Organization [facility] [address] [facility] Address [address] [place] [address] Phone Care Team Providers Care Credit And Collection Manager Name Role Phone Afshan Quiroz MD Primary Care Provider [phone] Allergies Active Allergy Reactions Criticality Noted Date Comments Qbqxydr-Jns-Ojq Reductase Inhibitors 01/20/2024 Medications SODIUM BORATE, BULK, [...] Date Comments Hypothyroid Hyperlipidemia Hypertension Diabetes mellitus ([facility] V24, [facility] V28) Social History Tobacco Use Types Packs/Day [...] ars (1 of 1 - PCV) 2004 RSV Immunization Adult Patie nts (1 - Risk 50-74 years 1-dose series) 2004 Zoster Vaccines (1 of 2) 2004 Cholesterol Screening (Lipid Panel) 12/05/2023 Hepatitis C Screening 12/05/2023 Medicare Annual Wellness Visit 12/05/2023 Osteoporosis Screening (Bone Density Screening) 12/05/2023 Social Influencers of Health Screening 12/05/2023 Diabetes: Annual Urine Albumin-Creatinine Ratio (uACR) 01/21/2024 Diabetes: Blood Sugar Contro l Test (HGBA1C) 01/21/2024 Hypertension/CHF/CAD Annual BMP Blood Test 01/21/2024 Depression Screening 02/17/2024 COVID-19 Vaccine ( - 2024-2 6 season) 2024 Influenza Vaccine (#1) 2024 Falls [...] [place] [facility] Care Teams Credit And Collection Manager Relationship Specialty Start Date End Date Afshan Quiroz MD [address] [place] [phone] PCP - General Family Medicine 12/05/23
--- OUTSIDE RECORDS SUMMARY | 2024-12-28 15:34 | XMS_ITS | Clinical Summary ---
Author Organization [facility] Address [address] [place] [address] Care Team Providers Care Specification Writer Name Role Phone Afshan Quiroz Sophie Primary Care Provider [phone] Allergies Active Allergy Reactions Criticality Noted Date [...] Screening 02/17/2024 Depression Screening and Follow-Up 02/17/2024 Fall Risk Screening 02/17/2024 Health Care Proxy Review 02/17/2024 Social Drivers of Health Annual Screening 02/17/2024 COVID-19 Vaccine ( season) 2024 12/05/2020, 05/02/2020, 04/10/2020 Influenza Vaccine (#1) 2024 , 12/26/2019, 2018, Additional history exists RSV Vaccine (60+ years old and patients) (1 - 1-dose 75+ series) 2029 Hepatitis B Vaccines Aged Out No long er eligible based on patient's age to complete this topic Procedures * Due to [place] state law, this organization might not be sharing negative HIV tests. Procedure Name Priority Date/Time Associated Diagnosis Comments PATRICIA LEFT STEREOTACTIC BREAST BIOPSY Routine 10/10/2021 10:03 AM EDT Breast microcalcifications BASIC METABOLIC PANEL, OUTSIDE LAB Routine 12/31/2016 from Last 3 Months or Most Recently Relevant to Health Maintenance Results * Due to [place] state law, this organization might not be sharing negative HIV tests. * [facility] Left Stereotactic Breast Biopsy (10/10/2021 [...] in July,. Narrative 10/10/2021 10:26 AM EDT PATRICIA Left Stereotactic Breast Biopsy PATRICIA Left Breast Specimen [place] [facility] Left Diagnostic Digital Mammo Post US/MRI/Stereo INDICATIONS Kasi Sarmiento is a 65 y.o. female and is seen for: PAT[facility] Left Stereotactic Breast Biopsy PATRICIA Left Breast Specimen [place] [facility] Left Diagnostic Digital Mammo Post [...] patient's Left breast was imaged with the [facility] stereotactic biopsy unit, and the following [...] Most Recently Relevant to Health Maintenance Insurance [facility] Advance Directives Documents on File Type Date Recorded Patient Hydro Plant Operator Expl anation Health Care Proxy 12/17/2016 8:43 AM Care Teams Specification Writer Relationship Specialty Start Date End Date Afshan Quiroz [address] [facility] [place] [address] PCP - General 09/04/16
--- OUTSIDE RECORDS SUMMARY | 2024-12-28 15:34 | XMS_ITS | Encounter Summary ---
Author Organization [facility] Address [address] [place] [address] Phone Care Team Providers Care Life Sciences Director Name Role Phone Afshan Quiroz MD Primary Care Provider + Encounter Details Date Type Department Care Team (Late st Contact Info) Description 03/26/2018 Procedure Pass [facility]IOP DEPT [address] [place] [address] Social History Tobacco Use Types Packs/Day Years [...] on filedocumented in this encounter Care Teams Life Sciences Director Relationship Specialty Start Date End Date Afshan Quiroz MD [address] [place] [address] [address] [place] [phone] PCP - General Family Medicine 03/18/17 documented as of this encounter Additional Source Comments The information contained in this document represents components of the legal health record. It is not the complete legal health record.[facility]
--- OUTSIDE RECORDS SUMMARY | 2024-12-28 15:34 | XMS_ITS | Encounter Summary ---
Author Organization [facility] Address [address] [place] [address] Phone Care Team Providers Care Garment Manufacturer Name Role Phone Afshan Quiroz MD Primary Care Provider + Encounter Details Date Type Department Care Team (Late st Contact Info) Description 09/23/2017 Procedure Pass [facility] PERIOP DEPT [address] [place] [address] Social History Tobacco Use Types Packs/Day Years [...] on filedocumented in this encounter Care Teams Garment Manufacturer Relationship Specialty Start Date End Date Afshan Quiroz MD [address] [place] [address] [address] [place] [phone] PCP - General Family Medicine 03/18/17 documented as of this encounter Additional Source Comments The information contained in this document represents components of the legal health record. It is not the complete legal health record.[facility]
--- OUTSIDE RECORDS SUMMARY | 2024-12-28 15:34 | XMS_ITS | Data Portability ---
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 Plan of Treatment Reminders Order Date Submit Date Provider Last Modified By Organization Details Last Modified Time Details Appointments GASTRO COLONOSCO PY 30MIN 2024 11:30A M Jefry malagon MD Not available Not available Not available ENDO-Foll ow Up-30 Min 2025 03:30P M GERBER MAYS NP Not available Not available Not available Lab HbA1c (hemoglob in A1c), blood [address] (Outpatient Registration) , [address] [place], [address], 08/17/2024 14:43:29 microalbu min, urine [address] (Outpatient Registration) , [address] [place], [address], 08/17/2024 14:43:28 vitamin B12, serum [address] (Outpatient Registration) , [address] [place], [address], 08/17/2024 14:43:28 lipid panel, serum 2024 025 [email or web address] [facility] (Outpatient Registration) , [address] [facility] [place], [address], 08/17/2024 14:43:28 lactoferr in, qualitati ve, stool 2023 024 [facility] Patient [facility], [address] [place] [address], [id number], 01/08/2024 16:13:18 culture, stool 2023 024 [facility], [address] [place] [address], [id number], 12/29/2023 06:41:45 giardia lamblia Ag, EIA, stool 2023 024 [facility], [address] [place] [address], [id number], 12/28/2023 11:10:22 ova + parasites , light microscop y, stool 2023 024 [facility], [address] [place] [address], [id number], 01/01/2024 13:14:18 C diff toxin DNA, stool 2023 024 [facility] Patient Reg, [address] [place] [address], [id number], 01/08/2024 18:21:28 TSH, serum, reflex free T4 2022 023 [facility], [address] [place] [address], [id number], 12/10/2022 09:19:19 Referral endocrino logy referral 2022 023 [email or web address] [facility] , [address], [place], [address], 01/07/2023 07:50:04 Procedures None recorded. Surgeries None recorded. Imaging None recorded. Medication Orders Ozempic 1 mg/dose (4 mg/3 mL) subcutane ous pen injector 2024 025 [id number] [facility], [address] [place], [place], [id number], 08/23/2024 14:39:30 Repatha SureClick 140 mg/mL subcutane ous pen injector 2024 025 [facility], [address], [address], [address], [place], [address], 08/17/2024 14:43:39 Ozempic 1 mg/dose (4 mg/3 mL) subcutane ous pen injector 2023 024 [id number] [facility] [address], [address] [place], [place], [id number], 08/23/2024 14:39:30 ezetimibe 10 mg tablet 2023 024 [facility] [address], [address] [place], [place], [id number], 08/17/2024 14:22:13 Ozempic 1 mg/dose (4 mg/3 mL) subcutane ous pen injector 2023 024 [id number] [facility], [address] [place], [place], [id number], 08/23/2024 14:39:30 rosuvasta tin 5 mg tablet 2023 024 [facility], [address] [place], [place], [id number], 12/09/2023 15:30:58 Patient TargetsNo targets recorded. Patient Instructions Encounter Date Encounter Id Patient Instructions Last Modified By Organization Details Last Modified Time 12/09/2022 [id number] Things to do aft er your visit today Medication changes: 1. Ozempic 1 mg weekly 2. Glipizide ER 10 mg daily 3. REDUCE Lantus 22 units at bedtime 4. REDUCE Levothyroxine to 125 mcg 6 tablets per week Please contact your pharmacy for routine refills. If you have an immediate need for a refill, or are unable to get your refill processed by the pharmacy please call our office. Lab: Please have your labs drawn 1. TSH in 6 weeks (01/20) 2. 3-5 days prior to your next appointment. (A1C, TSH) Fasting is not required. Follow-up appointment will be 6 months with Gerber valles) To schedule or change an appointment, for any questions, or to leave a message for Rakel Marie call [phone] [email or web address] Not available 12/09/2022 15:22:25 07/08/2023 [id number] Things to do aft er your visit today Medication changes: 1. Ozempic 1 mg weekly 2. Glipizide ER 10 mg daily 3. Lantus 22 units at bedtime 4. Start Rosuvastatin 5 mg every other day Please contact your pharmacy for routine refills. If you have an immediate need for a refill, or are unable to get your refill processed by the pharmacy please call our office. Lab: Please have your labs drawn 1. 3-5 days prior to your next appointment. (A1C, lipid) Fasting is required. Follow-up appointment will be 6 months with Gerber valles) To schedule or change an appointment, for any questions, or to leave a message for Rakel Marie call [phone] [email or web address] Not available 07/08/2023 15:11:25 12/09/2023 [id number] Things to do aft er your visit today Medication changes: 1. Ozempic 1 mg weekly 2. Glipizide ER 10 mg daily 3. REDUCE Lantus 18 units at bedtime 4. Start Ezetimibe 10 mg daily Please contact your pharmacy for routine refills. If you have an immediate need for a refill, or are unable to get your refill processed by the pharmacy please call our office. Lab: Please have your labs drawn 1. 3-5 days prior to your next appointment. (A1C, lipid) Fasting is required. Follow-up appointment will be 6 months with Gerber valles) To schedule or change an appointment, for any questions, or to leave a message for Rakel Marie call [phone] Not available 12/09/2023 15:44:21 12/25/2023 [id number] You have had an Urgent Care Visit which is designed to address acute issues. It does not represent an exhaustive evaluation of your symptom complex, but is an attempt to treat and manage the most likely cause of your most pressing physical issues. If you are not improved in the time frame that we have discussed, please seek the advice of your PCP who is in a position to order further diagnostic testing and possible specialist consultation. If you are rapidly deteriorating despite the treatment recommendations please do not wait to see your PCP and do proceed to the closest ER where a comprehensive evaluation including consideration to lab and other diagnostic testing as well as consultation is more expeditiously accessible. If you were prescribed medications they have been directly submitted to your pharmacy on file. Please make sure you finish all your medications and if you develop major side effects related to them please do stop taking them and check with your PCP to see if you need to get an alternative medication. If labs or xray were ordered, we will call you with the results if there is any change to your plan of care. You have had an Urgent Care Visit which is designed to address acute issues. It does not represent an exhaustive evaluation of your symptom complex, but is an attempt to treat and manage the most likely cause of your most pressing physical issues. [email or web address] Not available 12/25/2023 15:13:34 08/17/2024 [id number] Things to do aft er your visit today Medication changes: 1. Ozempic 1 mg weekly 2. Glipizide ER 10 mg daily 3. Lantus 16 units at bedtime 4. Start Repatha 140 mg every 2 weeks Please contact your pharmacy for routine refills. If you have an immediate need for a refill, or are unable to get your refill processed by the pharmacy please call our office. Lab: Please have your labs drawn 1. 3-5 days prior to your next appointment. (A1C, UMCR, B12) Blood and urine is required Follow-up appointment will be 6 months with Gerber valles) To schedule or change an appointment, for any questions, or to leave a message for Rakel Marie call [phone] Not available 08/17/2024 14:35:15 Reason for Referral Endocrinology Referral for A drenal adenoma history of adrenal nodules, stable on imaging Referring Physician: Gerber Mays, Endocrinology, Encounter Date: 12/09/2022 Results Created Date Observation Date Name Description Value Unit Range Abnormal Flag Note LastModifiedBy Organization Detail LastModifiedTime 12/06/1912/05/2022 COMPL ETE BLOOD COUNT AUTO DIFF white blood count 5.43 K/uL 3.5-11 .0 normal Not Available [facility] Department [address] [place] [address], [address] 12/05/2022 12:29:18 12/06/1912/05/2022 COMPL ETE BLOOD COUNT AUTO DIFF red blood count 4.87 M/uL 3.60-4 .80 high Not Available [facility] [address] [place] [address], [address] 12/05/2022 12:29:18 12/06/19 23 12/05/2022 COMPL ETE BLOOD COUNT AUTO DIFF hemoglobin 13.9 g/dL 12.0-1 6.0 normal Not Available [facility] [address] [place] [address], [address] 12/05/2022 12:29:18 12/06/19 23 12/05/2022 COMPL ETE BLOOD COUNT AUTO DIFF hematocrit 42.8 % 36.0-4 8.0 normal Not Available [facility] [address] [place] [address], [address] 12/05/2022 12:29:18 12/06/19 23 12/05/2022 COMPL ETE BLOOD COUNT AUTO DIFF mean corpuscular volume 87.9 fL 79.0-9 8.0 normal Not Available [facility] [address] [place] [address], [address] 12/05/2022 12:29:18 12/06/19 23 12/05/2022 COMPL ETE BLOOD COUNT AUTO DIFF mean corpuscular hemoglobin 28.5 pg 25.4-3 4.6 normal Not Available [facility] [address] [place] [address], [address] 12/05/2022 12:29:18 12/06/1912/05/2022 COMPL ETE BLOOD COUNT AUTO DIFF mean corpuscular HGB conc 32.5 g/dL 30.0-3 6.0 normal Not Available [facility] [address] [place] [address], [address] 12/05/2022 12:29:18 12/06/1912/05/2022 COMPL ETE BLOOD COUNT AUTO DIFF red cell distribution width 13.5 % 11.5-1 4.5 normal Not Available [facility] [address] [place] [address], [address] 12/05/2022 12:29:18 12/06/1912/05/2022 COMPL ETE BLOOD COUNT AUTO DIFF platelet count 218 K/uL 150-40 0 normal Not Available [facility] [address] [place] [address], [address] 12/05/2022 12:29:18 12/06/1912/05/2022 MICRO ALBUM IN, RANDO M (W CREAT ) creatinine urine 51.70 mg/dL 28-217 normal Not Available [facility] Department [address] [place] [address], [address] 12/05/2022 12:37:21 12/06/1912/05/2022 MICRO ALBUM IN, RANDO M (W CREAT ) microalbumin urine < 1.2 mg/dL 0-2.9 normal Not Available [facility] Department [address] [place] [address], [address] 12/05/2022 12:37:21 12/06/1912/05/2022 MICRO ALBUM IN, RANDO M (W CREAT ) microalbum/c reatinine ratio ur TNP ug/mg cre 0-29 Unabl e to calcu late due to the micro album in resul t being less than the linea rity of the instr ument . Not Available [facility] [address] [place] [address], [address] 12/05/2022 12:37:21 12/06/19 23 12/05/2022 COMPR EHENS MARK MET. PANEL sodium 140 mmol/ L 136-14 5 normal Not Available [facility] Department [address] [place], [address] 12/05/2022 12:50:13 12/06/19 23 12/05/2022 COMPR EHENS MARK MET. PANEL potassium 4.0 mmol/ L 3.5-5. 1 normal Not Available [facility] [address] [place], [address] 12/05/2022 12:50:13 12/06/19 23 12/05/2022 COMPR EHENS MARK MET. PANEL chloride 103 mmol/ L 98-107 normal Not Available [facility] [address] [place], [address] 12/05/2022 12:50:13 12/06/19 23 12/05/2022 COMPR EHENS MARK MET. PANEL carbon dioxide 29.4 mmol/ L 22-29 high Not Available [facility] [address] [place] [address], [address] 12/05/2022 12:50:13 12/06/19 23 12/05/2022 COMPR EHENS MARK MET. PANEL anion gap 12 mmol/ L 10-20 normal Not Available [facility] [address] [place], [address] 12/05/2022 12:50:13 12/06/19 23 12/05/2022 COMPR EHENS MARK MET. PANEL blood urea nitrogen 11 mg/dL 8-23 normal Not Available [facility] Department [address] [place], [address] 12/05/2022 12:50:13 12/06/19 23 12/05/2022 COMPR EHENS MARK MET. PANEL creatinine 0.48 mg/dL 0.50-0 .90 low Not Available [facility] [address] [place] [address], [address] 12/05/2022 12:50:13 12/06/19 23 12/05/2022 COMPR EHENS MARK MET. PANEL estimated glomerular filt rate 104 GFR Value : mL/mi n/1.7 3 squar e meter s Calcu latio n: CKD-E PI Creat inine Equat ion (2020 ) Chron ic Kidne y Disea se is defin ed as eithe r of the follo wing prese nt for >= 3 month s: - GFR less than 60 mL/mi n/1.7 3 squar e meter s. - Micro album in:Ur . Creat inine Ratio >= 30 mg/g or other marke rs of kidne y damag e Kidne y failu re is less than 15 mL/mi n/1.7 3 squar e meter s This test is not perfo rmed in patie nts under the age of 18. Not Available [facility] [address] [place] [address], [address] 12/05/2022 12:50:13 12/06/19 23 12/05/2022 COMPR EHENS MARK MET. PANEL glucose 126 mg/dL 82-115 high Not Available [facility] [address] [place] [address], [address] 12/05/2022 12:50:13 12/06/19 23 12/05/2022 COMPR EHENS MARK MET. PANEL calcium 9.3 mg/dL 8.8-10 .2 normal Not Available [facility] [address] [place] [address], [address] 12/05/2022 12:50:13 12/06/19 23 12/05/2022 COMPR EHENS MARK MET. PANEL bilirubin total 0.4 mg/dL 0.2-1. 2 normal Not Available [facility] [address] [place] [address], [address] 12/05/2022 12:50:13 12/06/19 23 12/05/2022 COMPR EHENS MARK MET. PANEL aspartate amino transferase 16 U/L 5-32 normal Not Available [facility] Department [address] [place] [address], [address] 12/05/2022 12:50:13 12/06/19 23 12/05/2022 COMPR EHENS MARK MET. PANEL alanine aminotransfe rase 21 U/L 5-33 normal Not Available [facility] Department [address] [place], [address] 12/05/2022 12:50:13 12/06/19 23 12/05/2022 COMPR EHENS MARK MET. PANEL total protein 6.7 g/dL 6.4-8. 3 normal Not Available [facility] [address] [place] [address], [address] 12/05/2022 12:50:13 12/06/19 23 12/05/2022 COMPR EHENS MARK MET. PANEL albumin level 4.0 g/dL 3.5-5. 2 normal Not Available [facility] [address] [place], [address] 12/05/2022 12:50:13 12/06/19 23 12/05/2022 COMPR EHENS MARK MET. PANEL globulin 2.7 gm/dL 2.0-3. 5 normal Not Available [facility] [address] [place], [address] 12/05/2022 12:50:13 12/06/19 23 12/05/2022 COMPR EHENS MARK MET. PANEL albumin globulin ratio 1.5 % 1.1-2. 5 normal Not Available [facility] [address] [place], [address] 12/05/2022 12:50:13 12/06/19 23 12/05/2022 COMPR EHENS MARK MET. PANEL alkaline phosphatase 100 U/L 35-104 normal Not Available [facility] Department [address] [place], [address] 12/05/2022 12:50:13 12/06/19 23 12/05/2022 LIPID PANEL WITH REFLE X triglyceride s w/ reflex LDL 123 mg/dL 30-150 normal Refer ence Range s: <150 mg/dl Melinda l 150-1 99 mg/dl Borde rline High 200-4 99 mg/dl High >500 mg/dl Very High Not Available [facility] [address] [place], [address] 12/05/2022 12:50:14 12/06/19 23 12/05/2022 LIPID PANEL WITH REFLE X cholesterol 121 mg/dL 100-20 0 normal Not Available [facility] [address] [place], [address] 12/05/2022 12:50:14 12/06/1912/05/2022 LIPID PANEL WITH REFLE X LDL cholesterol calculated 54.4 mg/dL 0-100 normal Natio nal Daniela stero l Educa tion Progr am sugge sts the follo wing refer ence range : Optim al <100 mg/dL Near optim al/ab ove optim al 100-1 29 mg/dL Borde rline high 130-1 59 mg/dL High 160-1 89 mg/dL Very high >190 mg/dL Not Available [facility] [address] [place], [address] 12/05/2022 12:50:14 12/06/19 23 12/05/2022 LIPID PANEL WITH REFLE X HDL cholesterol 42.0 mg/dL 40-60 normal Major risk facto r for CHD: <40 mg/dL Negat mark risk facto r for CHD: >=60 mg/dL Not Available [facility] [address] [place], [address] 12/05/2022 12:50:14 12/06/1912/05/2022 LIPID PANEL WITH REFLE X chol HDL ratio 2.88 Risk CHOL/ HDL CHOL/ HDL Ratio Male Femal e 1/2 AVERA GE 3.43 3.27 AVERA GE 4.97 4.44 2 X AVERA GE 9.55 7.05 3 X AVERA GE 23.39 11.04 Not Available [facility] [address] [place], [address] 12/05/2022 12:50:14 12/06/1912/05/2022 TSH REFLE X FREE T4 TSH reflex free T4 0.19 uIU/m L 0.27-4 .20 low Not Available [facility] [address] [place], [address] 12/05/2022 12:52:41 12/06/1912/05/2022 TOSHIA VILLAGRAN total cells counted 100 Not Available [facility] Department [address] [place], [address] 12/05/2022 12:55:44 12/06/19 23 12/05/2022 TOSHIA HADLEY AL neutrophils percent manual 72 % 35-66 high Not Available [facility] Department [address] [place] [address], [address] 12/05/2022 12:55:44 12/06/19 23 12/05/2022 TOSHIA HADLEY AL band neutrophils percent 2 % 0-3 normal Not Available [facility] Department [address] [place], [address] 12/05/2022 12:55:44 12/06/1912/05/2022 MANUA L DIFFE RENTI AL lymphocytes percent manual 16 % 25-45 low Not Available [facility] Department [address] [place], [address] 12/05/2022 12:55:44 12/06/19 23 12/05/2022 MANUA L DIFFE RENTI AL monocytes percent manual 10 % 0-13 normal Not Available [facility] Department [address] [place], [address] 12/05/2022 12:55:44 12/06/1912/05/2022 MANUA L DIFFE RENTI AL neutrophils absolute manual 4.02 K/uL 1.5-7. 5 normal Cauti on: Inter preta tion of ANC resul ts witho ut inclu bonnie of the WBC diffe renti al resul ts may lead to tammi eous diagn osis; for examp le, mariah ng myelo proli ferat mark or lymph oprol ifera tive disor ders. Not Available [facility] Department [address] [place], [address] 12/05/2022 12:55:44 12/06/1912/05/2022 MANUA L DIFFE RENTI AL lymphocytes absolute manual 0.87 K/uL 0.8-4. 8 normal Not Available [facility] Department [address] [place] [address], [address] 12/05/2022 12:55:44 12/06/1912/05/2022 MANUA L DIFFE RENTI AL monocytes absolute manual 0.54 K/uL 0.4-1. 3 normal Not Available [facility] Department [address] [place], [address] 12/05/2022 12:55:44 12/06/1912/05/2022 MANUA L DIFFE RENTI AL RBC morphology Normal Not Available [facility] Laboratory Department [address] [place], [address] 12/05/2022 12:55:44 12/06/19 23 12/05/2022 HEMOG LOBIN A1C hemoglobin A1C % 6.4 % 4.0-5. 7 high % of the total HgB Inter preta tion ----- ----- ----- --- ----- ----- ----- - <5.7 Consi stent with the absen ce of diabe derek 5.7-6 .4 Consi stent with incre ased risk for diabe derek (pred iabet es) > or = to 6.5 Consi stent with Diabe derek Not Available [facility] Department [address] [place] [address], [address] 12/05/2022 14:50:01 12/06/19 23 12/05/2022 FREE T4 (FREE THYRO XINE) free T4 (free thyroxine) 2.01 NG/dL 0.9-1. 7 high Not Available [facility] [address] [place] [address], [address] 12/05/2022 22:02:35 06/30/19 24 06/30/2023 TSH REFLE X FREE T4 free T4 (free thyroxine) TNP NG/dL 0.9-1. 7 Not Available [facility] [address] [place] [address], [address] 06/30/2023 19:24:27 06/30/19 24 06/30/2023 TSH REFLE X FREE T4 TSH reflex free T4 1.78 uIU/m L 0.27-4 .20 normal Not Available [facility] [address] [place] [address], [address] 06/30/2023 19:24:27 12/03/19 24 12/03/2023 LIPID PANEL WITH REFLE X triglyceride s w/ reflex LDL 160 mg/dL 30-150 high Refer ence Range s: <150 mg/dl Melinda l 150-1 99 mg/dl Borde rline High 200-4 99 mg/dl High >500 mg/dl Very High Not Available [facility] [address] [place] [address], [address] 12/03/2023 10:45:46 12/03/19 24 12/03/2023 LIPID PANEL WITH REFLE X cholesterol 196 mg/dL 100-20 0 normal Not Available [facility] [address] [place] [address], [address] 12/03/2023 10:45:46 1012/03/2023 LIPID PANEL WITH REFLE X LDL cholesterol calculated 128.0 mg/dL 0-100 high Natio nal Daniela stero l Educa tion Progr am sugge sts the follo wing refer ence range : Optim al <100 mg/dL Near optim al/ab ove optim al 100-1 29 mg/dL Borde rline high 130-1 59 mg/dL High 160-1 89 mg/dL Very high >190 mg/dL Not Available [facility] Department [address] [place], [address] 12/03/2023 10:45:46 12/03/1912/03/2023 LIPID PANEL WITH REFLE X HDL cholesterol 36.0 mg/dL 40-60 low Major risk facto r for CHD: <40 mg/dL Negat mark risk facto r for CHD: >=60 mg/dL Not Available [facility] Department [address] [place] [address], [address] 12/03/2023 10:45:46 12/03/1912/03/2023 LIPID PANEL WITH REFLE X chol HDL ratio 5.44 Risk CHOL/ HDL CHOL/ HDL Ratio Male Femal e 1/2 AVERA GE 3.43 3.27 AVERA GE 4.97 4.44 2 X AVERA GE 9.55 7.05 3 X AVERA GE 23.39 11.04 Not Available [facility] Department [address] [place] [address], [address] 12/03/2023 10:45:46 12/03/1912/03/2023 HEMOG LOBIN A1C hemoglobin A1C % 6.6 % 4.0-5. 7 high % of the total HgB Inter preta tion ----- ----- ----- --- ----- ----- ----- - <5.7 Consi stent with the absen ce of diabe derek 5.7-6 .4 Consi stent with incre ased risk for diabe derek (pred iabet es) > or = to 6.5 Consi stent with Diabe derek Not Available [facility] Department [address] [place], [address] 12/03/2023 14:16:58 12/26/1912/28/2023 GIARD IA AG STOOL EIA giardia Ag stool EIA NEGATI VE negati ve Perfo rmed at: 01 - [facility] [address], [place] [address] Lab Direc tor: Kristal Valderrama MD, Phone : [phone] Not Available [facility] Department [address] [place] [address], [address] 12/28/2023 11:10:22 12/26/1912/26/2023 STOOL CULTU RE results ----- ----- ----- ----- ----- ----- ----- ----- ----- ----- ----- ----- ----- ----- ----- ----- ----- ----- -- RUN DATE: 12/28 Cara potter *Live * - LAB PAGE 1 RUN TIME: 640 Raqueli cecilia Ruiz ry ----- ----- ----- ----- ----- ----- ----- ----- ----- ----- ----- ----- ----- ----- ----- ----- ----- ----- -- PATIE NT: Elaien qiu,[facility] ACCT: [id number] LOC: LORRIE HOLM U: [id number] AGE/S X: 68/F ROOM: RE12/[address]: Veronica yi 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 BED: DIS: STATU S: GRICELDA CLI TLOC: ----- ----- ----- ----- ----- ----- ----- ----- ----- ----- ----- ----- ----- ----- ----- ----- ----- ----- -- SPEC #: [id number] 3R JOAO: 12/25- 156 STATU S: COMP REQ #: [id number] RECD: 12/25- [address]: Veronica yi, 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 SOURC E: STOOL ENTR: 12/25- [address]: Lizette CACERES C: ORDER ED: Lacto rafael n, ql, Stool w Ronel Batista diff Tox DNA COMME NTS: Comme nt Elect jean torres derek d by VERONICA YI ACT WKST: CULT 12/28 #1 ----- ----- ----- ----- ----- ----- ----- ----- ----- ----- ----- ----- ----- ----- ----- ----- ----- ----- -- Proce dure Resul t ----- ----- ----- ----- ----- ----- ----- ----- ----- ----- ----- ----- ----- ----- ----- ----- ----- ----- -- Lacto rafael n, quali tativ e Final Resul t: Negat mark For pedia tric patie nts, resul ts shoul d be inter prete d in conju nctio n with breas tfeed ing statu s. Breas t milk is natur ally high in lacto rafael n and stool sampl es from breas t-fed infan ts may cause a false posit mark on the LEUKO EZ MARIAM. Stool Cultu re Final No enter ic patho gens isola herbert This speci men has been scree mik for Salmo katey , Shige lla, Yersi saira, and E.col i O157: H7. Refer to antig en test resul ts for Lester traylor. C diff Toxig enic DNA Final Resul t Not detec herbert berry ter Antig en Final Lester berry ter Antig en Negat mark - Lester berry ter antig en is not prese nt ----- ----- ----- ----- ----- ----- ----- ----- ----- ----- ----- ----- ----- ----- ----- ----- ----- ----- -- END OF REPOR T Not Available [facility] Department [address] [place] [address], [id number] 12/29/2023 06:41:45 12/26/1901/01/2024 OVA AND KAMLA ITES ova + parasite exam FINAL REPORT . These resul ts were obtai mik using wet prepa ratio n(s) and trich jared stain ed smear . This test does not inclu de testi ng for Crypt ospor idium parvu m, Cyclo spora , or Micro spori nikole. Not Available [facility] Department [address] [place] [address], [id number] 01/01/2024 13:14:18 12/26/19 24 01/01/2024 OVA AND KAMLA ITES op result 1 COMMEN T . No ova, cysts , or kamla ites seen. One negat mark speci men does not rule out the possi bilit y of a kamla itic infec tion. Perfo rmed at: 01 - [facility]vo [address] [facility] [place] [address] 1800 Lab Direc tor: Kristal Valderrama MD, Phone : [phone] Not Available [facility] Department [address] [place] [address], [address] 01/01/2024 13:14:18 08/06/1908/05/2024 LIPID PANEL WITH REFLE X triglyceride s 137 mg/dL 30-150 normal Refer ence Range s: <150 mg/dl Melinda l 150-1 99 mg/dl Borde rline High 200-4 99 mg/dl High >500 mg/dl Very High Not Available [facility] Department [address] [place] [address], [address] 08/05/2024 13:18:27 08/06/19 25 08/05/2024 LIPID PANEL WITH REFLE X cholesterol 183 mg/dL 100-20 0 normal Not Available [facility] Department [address] [place], [address] 08/05/2024 13:18:27 08/06/19 25 08/05/2024 LIPID PANEL WITH REFLE X LDL cholesterol direct TNP mg/dL 0-100 Not Available [facility] Department [address] [place], [address] 08/05/2024 13:18:27 08/06/19 25 08/05/2024 LIPID PANEL WITH REFLE X LDL cholesterol calculated 120.0 mg/dL 0-100 high Natio nal Daniela stero l Educa tion Progr am sugge sts the follo wing refer ence range : Optim al <100 mg/dL Near optim al/ab ove optim al 100-1 29 mg/dL Borde rline high 130-1 59 mg/dL High 160-1 89 mg/dL Very high >190 mg/dL Not Available [facility] Department [address] [place], [address] 08/05/2024 13:18:27 08/06/19 25 08/05/2024 LIPID PANEL WITH REFLE X HDL cholesterol 36.0 mg/dL 40-60 low Major risk facto r for CHD: <40 mg/dL Negat mark risk facto r for CHD: >=60 mg/dL Not Available [facility] Department [address] [place], [address] 08/05/2024 13:18:27 08/06/19 25 08/05/2024 LIPID PANEL WITH REFLE X chol HDL ratio 5.08 Risk CHOL/ HDL CHOL/ HDL Ratio Male Femal e 1/2 AVERA GE 3.43 3.27 AVERA GE 4.97 4.44 2 X AVERA GE 9.55 7.05 3 X AVERA GE 23.39 11.04 Not Available [facility] Department [address] [place], [address] 08/05/2024 13:18:27 08/06/19 25 08/05/2024 HEMOG LOBIN A1C hemoglobin A1C % 6.3 % 4.0-5. 7 high % of the total HgB Inter preta tion ----- ----- ----- --- ----- ----- ----- - <5.7 Consi stent with the absen ce of diabe derek 5.7-6 .4 Consi stent with incre ased risk for diabe derek (pred iabet es) > or = to 6.5 Consi stent with Diabe derek Not Available [facility] Department [address] [place] [address], [address] 08/05/2024 18:58:35 Result Notes None recorded. Problems Name Problem SNOMED Code Status Onset Date Resolution Date Notes Provider Name and Address Organization Details Recorded Time Epigastric pain 60085817 Niko che [facility] 4 10:08:08 Chokes when swallowing 807180463 Completed 01/13/2018 Dima Price MD [address] [place] [address], [address], [facility] 8 17:40:01 Globus sensation Niko che [facility] 4 10:08:08 Nausea 000338740 Completed 01/13/2018 Dima Price MD [address] [place] [address], [address], [facility] 8 17:40:31 Gastroesoph ageal reflux disease 463728370 Niko che [facility] 4 10:08:08 Burping 300663947 Completed 01/13/2018 Dima Price MD [address] [place] [address], [address], [facility] 8 17:40:18 Abdominal bloating 944745656 Niko che [facility] 4 10:08:08 Loose stool 486724468 Niko che [facility] 4 10:08:08 Flatulence/ wind Completed 01/13/2018 Dima Price MD [address] [facility] [place], [address], [facility] 8 17:40:05 Helicobacte r pylori gastrointes tinal tract infection 979936545 Completed 01/13/2018 Dima Price MD [address] [facility] [place], [address], [facility] 8 17:40:25 Lumbar radiculopat hy 206794355 Active Sean Cevallos MD [address] [facility] [place], [address], [facility] 5 14:49:40 Lumbar spondylosis 851402402 Active Sean Cevallos MD [address] [facility] [place], [address], [facility] 6 16:49:27 Myofascial pain 228053009 Completed 01/13/2018 Dima Price MD [address] [facility] [place], [address], [facility] 8 17:40:22 Bursitis of hip 90347707 Active Sean Cevallos MD [address] [facility] [place], [address], [facility] 6 16:49:27 Adrenal adenoma 273002259 Active Sean Cevallos MD [address] [facility] [place], [address], [facility] 5 14:49:40 Uterine leiomyoma 06765747 Active Clarence Zaragoza MD [address] [facility] [place], [address], [facility] 6 20:10:23 Pain in pelvis 33900322 Completed 01/13/2018 Dima Price MD [address] [facility] [place], [address], [facility] 8 17:40:34 Osteoarthri tis of knee 828759132 [facility] 08:18:18 Diabetes mellitus 09295633 Completed 201701/13/2018 Dima Price MD [address] [place] [address] Y[place]DA [place], [address], [facility] 8 17:39:34 Type 2 diabetes mellitus 17359784 Active 2017 Dima Price MD [address] [place] [address] [place], [address], [facility] 2 14:34:29 Hyperlipide ian 70950122 Active 2017 Dima Price MD [address] [place], [place] [address], [address], [facility] 2 14:34:29 Essential hypertensio n 31049987 Active 2017 Dima Price MD [address] [place], [place] [address], [address], [facility] 2 14:34:29 Primary hypothyroid ism 65249896 Active 2021 GERBER MAYS NP [address] [place], [place] [address], [address], [facility] 2 12:33:28 Coronary arterioscle rosis 96662353 Active 2024 GERBER MAYS NP [address] [place], [place] [address], [address], [facility] 5 14:40:38 Notes:Some problems listed i n Document: #[id number] could not be added to this patient's chart. Please review this document and add these problems to the patient's chart manually as needed. Problem Notes None recorded. Procedures Surgical History Date Name Laterality Status Provider Name and Address Organization Details Recorded Time 07/22/19 23 Corticosteroid Injection - KNEE completed ETIENNE BARBOSA [address] [place], [place] [address], [address], [facility] 07/21/2022 15:58:45 08/15/19 20 colonoscopy completed Dinah Santana [facility] 08/16/2019 14:39:01 05/27/19 17 Egd biopsy single/multiple completed Kayla Leoneiault [facility] 05/26/2016 11:50:19 12/21/19 13 cataract completed Peyman Guzman [facility] 06/28/2013 08:11:10 12/08/19 13 cataract completed Peyman Guzman [facility] 06/28/2013 08:11:10 10/18/19 11 cholectstectomy, lap completed Peymanradha Guzman [facility] 06/28/2013 08:11:10 08/10/19 11 colonoscopy completed Peymanradha Guzman [facility] 06/28/2013 08:11:10 01/25/20 04 Laparoscopy appendectomy completed [facility] Available [facility] 01/01/2011 06:32:15 02/16/18 97 thyroid surgery completed Adilene Hare CMA [facility] 05/18/2015 15:28:45 breast biopsy completed Kaitlynn Hare MA [facility] 12/13/2019 17:10:10 Imaging Results None recorded. Procedure Notes None recorded. Medical Equipment None Reported. Allergies Allergen ID Allergen Name Allergen Category Reaction Reaction Severity Criticality Documentation Date Start Date Code Code System Note Provider Name and Address Organization Details Recorded Time 564325 Substance with tetracycl ine structure (substanc e) medicatio n Not available Not available Not available 06/27/2013 71169 8001 SNOMED Peyman che [facility] 4 15:29:17 484824 Product containin g penicilli n (product) medicatio n Not available Not available Not available 12/20/2019 07280 8001 SNOMED YOLANDA Ventura [facility] 0 15:59:39 837206 Januvia medicatio n Not available Not available Not available 12/25/2020 02868 6 RxNorm YOLANDA Ventura [facility] 1 14:49:03 919896 Jardiance medicatio n Not available Not available Not available 12/25/2020 10674 59 RxNorm Coreen Romero MA null, [facility] 14:49:09 742205 ezetimibe medicatio n diarrhea Not available Not available 08/17/2024 10818 8 RxNorm Dayana Canales [facility], [facility] 14:22:25 442843 Product containin g 3-hydroxy -3-methyl glutaryl- coenzyme A reductase inhibitor (product) medicatio n Not available Not available Not available 10/27/2024 42472 009 SNOMED Laina Celis RN null, [facility] 11:23:07 Medications Name Sig Start Date Stop Date Status Note LastModified by Organization Details LastModified Time pot cl micro tab 10meq er active Not Available Not Available Not Available hydrochlo rot tab 25mg active Not Available Not Available Not Available vigamox ozzy 0.5% active Not Available Not Available Not Available metronida zol cre 0.75% active Not Available Not Available Not Available Foodem covid-19 rapid self test ki t 1-pack kit 08/17 completed Not Available Not Available Not Available nevanac mena 0.1% active Not Available Not Available Not Available pot cl micro tab 10meq cr active Not Available Not Available Not Available Prescript ion - Prior Authoriza tion Request 10/20 completed PA FOR JARDIANC E Not Available Not Available Not Available lisinopri l tab 10mg active Not Available Not Available Not Available levothyro yessenia tab 125mcg active Not Available Not Available Not Available prednisol one mena 1% op active Not Available Not Available Not Available levothyro yessenia tab 100mcg active Not Available Not Available Not Available amoxicill in 500 mg capsule Take 2 capsules every 12 hours by oral route for 14 days. 2014 active Not Available Not Available Not Avai lable metformin 500 mg tablet Take 1 tablet twice a day by oral route. 01/13 completed Not Available Not Available Not Available nystatin 100,000 unit/mL oral suspensio n 03/21 completed Not Available Not Available Not Available potassium chloride ER 10 mEq capsule,e xtended release 1 tab qd active Not Available Not Available Not Available atorvasta tin 20 mg tablet Take 1 tablet every day by oral route. 12/08 completed Not Available Not Available Not Available ipratropi um 0.5 mg-albute rol 3 mg (2.5 mg base)/3 mL nebulizat ion soln Inhale 3 mL by nebuliza tion route. 01/13 completed Not Available Not Available Not Available clindamyc in HCl 300 mg capsule 12/25 completed Not Available Not Available Not Available ciproflox acin 750 mg tablet 12/13 completed Not Available Not Available Not Available atorvasta tin 10 mg tablet Take 1 tablet every day by oral route. 08/02 completed patient states now on 20mg dose Not Available Not Available Not Available azithromy mariel 250 mg tablet TAKE 2 TABLETS (500 MG) BY ORAL ROUTE ONCE DAILY FOR 1 DAY THEN 1 TABLET (250 MG) BY ORAL ROUTE ONCE DAILY FOR 4 DAYS 07/03 completed Not Available Not Available Not Available fluconazo le 150 mg tablet 03/21 completed Not Available Not Available Not Available clarithro mycin 500 mg tablet Take 1 tablet every 12 hours by oral route for 14 days. 03/21 completed Not Available Not Available Not Available glipizide ER 10 mg tablet, extended release 24 hr Take 1 tablet every day by oral route. active Not Available Not Available No t Available lisinopri l 20 mg tablet bid active Not Available Not Available Not Available lovastati n 40 mg tablet 1 tab qd 10/26 completed Not Available Not Available Not Available meclizine 12.5 mg tablet 12/25 completed Not Available Not Available Not Available metronida zole 500 mg tablet 12/13 completed Not Available Not Available Not Available amlodipin e 5 mg tablet 1 tab qd active Not Available Not Available Not Available omeprazol e 40 mg capsule,d elayed release 03/21 completed Not Available Not Available Not Available levothyro xine 100 mcg tablet Take 1 tablet every day by oral route. active Not Available Not Available No t Available meclizine 25 mg tablet 12/25 completed Not Available Not Available Not Available benzonata te 100 mg capsule Take 1 capsule 3 times a day by oral route as needed for 5 days. 07/03 completed Not Available Not Available Not Available simvastat in 20 mg tablet 03/21 completed Not Available Not Available Not Available levothyro xine 125 mcg tablet TAKE ONE TABLET BY MOUTH EVERY DAY FOR 6 DAYS A WEEK DIRECTED 2024 active Not Available Not Available Not Avai lable lisinopri l 10 mg tablet Take 1 tablet twice a day by oral route. 12/13 completed Not Available Not Available Not Available sertralin e 25 mg tablet 12/25 completed Not Available Not Available Not Available hydrochlo rothiazid e 25 mg tablet 1 qd active Not Available Not Available Not Available alprazola m 2 mg tablet 03/21 completed Not Available Not Available Not Available polyethyl papo glycol 3350 17 gram/dose oral powder Take 17 g every day by oral route at bedtime for 21 days. 2024 active Not Available Not Available Not Avai lable fluticaso ne propionat e 50 mcg/actua tion nasal spray,mena pension prn 08/17 completed Not Available Not Available Not Available metformin ER 500 mg tablet,ex tended release 24 hr Take 1 tablet twice a day by oral route. 04/12 completed Not Available Not Available Not Available glipizide 5 mg tablet Take 1 tablet every day by oral route. 01/13 completed Not Available Not Available Not Available levothyro xine 112 mcg tablet TAKE ONE TABLET BY MOUTH EVERY DAY 06/11 completed Not Available Not Available Not Available ezetimibe 10 mg tablet Take 1 tablet every day by oral route. 08/17 completed Not Available Not Available Not Available metformin ER 750 mg tablet,ex tended release 24 hr Take 1 tablet twice a day by oral route before meals. 07/23 completed Not Available Not Available Not Available rosuvasta tin 5 mg tablet Take 1 tablet every day by oral route. 12/08 completed Not Available Not Available Not Available Prilosec OTC 20 mg tablet,de layed release 03/21 completed Not Available Not Available Not Available potassium chloride ER 10 mEq tablet,ex tended release(p art/cryst ) 02/02 completed Not Available Not Available Not Available metronida zole 1 % topical gel active Not Available Not Available Not Available doxycycli ne hyclate 100 mg tablet,de layed release 12/13 completed Not Available Not Available Not Available magnesium 1 atb qd active Not Available Not A vailable Not Available cranberry 1 tab qd 08/17 completed Not Available Not Available Not Available omeprazol e active Not Available Not Available Not Available hydrochlo rothiazid e 10mg. qd 03/21 completed Not Available Not Available Not Available metformin pt. doesn't know dosage 01/13 completed Not Available Not Available Not Available Calcium with Vitamin D 1 tab daily active Not Available Not Available No t Available ProAir HFA 90 mcg/actua tion aerosol inhaler Inhale 2 puffs every 4 hours by inhalati on route. 01/13 completed Not Available Not Available Not Available Januvia 100 mg tablet Take 1 tablet every day by oral route. 12/25 completed Not Available Not Available Not Available Lantus Solostar U-100 Insulin 100 unit/mL (3 mL) subcutane ous pen INJECT SUBCUTAN EOUSLY 16 UNITS AT BEDTIME; TITRATIN G TO A MAX DAILY DOSE OF 50 UNITS 2024 active Not Available Not Available Not Avai lable Voltaren 1 % topical gel APPLY 2 GRAM TO THE AFFECTED AREA(S) BY TOPICAL ROUTE 4 TIMES PER DAY 03/21 completed Not Available Not Available Not Available B12 1 tab qd 08/17 completed Not Available Not Available Not Available Dexilant 60 mg capsule, delayed release Take 1 capsule every day by oral route in the evening for 30 days. 03/21 completed Not Available Not Available Not Available OneTouch Verio test strips Use to check glucose once daily and for symptoms of high or low glucose. active Not Available Not Available No t Available Jardiance 10 mg tablet Take 1 tablet every day by oral route. 12/25 completed Not Available Not Available Not Available Jardiance 25 mg tablet Take 1 tablet every day by oral route. 02/02 completed Not Available Not Available Not Available Trulicity 1.5 mg/0.5 mL subcutane ous pen injector Inject 1.5 mg every week by subcutan eous route. 11/19 completed Not Available Not Available Not Available Trulicity 0.75 mg/0.5 mL subcutane ous pen injector inject 0.75 mg weekly 03/14 completed dose increase d to 1.[address] Price Not Available Not Available Not Available Afluria 8719-2469 (PF) 45 mcg (15 mcg x 3)/0.5 mL IM syringe 03/21 completed Not Available Not Available Not Available Pentips Pen Needle 32 gauge x USE DIRECTED ONCE DAILY dx e11.65 2024 active Not Available Not Available Not Avai lable Repatha SureClick 140 mg/mL subcutane ous pen injector Inject 1 mL every 2 weeks by subcutan eous route. 2024 active Not Available Not Available Not Avai lable Fluarix Quad 9596-8277 (PF) 60 mcg (15 mcg x 4)/0.5 mL IM syringe 03/21 completed Not Available Not Available Not Available Flucelvax Quad 6327-3949 (PF) 60 mcg (15 mcg x 4)/0.5 mL IM syringe 12/13 completed Not Available Not Available Not Available Ozempic 0.25 mg or 0.5 mg (2 mg/1.5 mL) subcutane ous pen injector Inject 0.5 mg every week by subcutan eous route. 11/19 completed Not Available Not Available Not Available FreeStyle Sandra 14 Day Sensor kit USE TO TEST BG 4 TIMES DAILY - CHANGE EVERY 14 DAYS DX: E11.65 active Not Available Not Available No t Available OneTouch Verio Reflect Meter active Not Available Not Available Not Available Trulicity 3 mg/0.5 mL subcutane ous pen injector 12/25 completed Not Available Not Available Not Available Sutab 1.479-0.1 88-0.225 gram tablet Take 1 dose pk by oral route as directed for 1 day. active Not Available Not Available No t Available Ozempic 1 mg/dose (4 mg/3 mL) subcutane ous pen injector Inject 1 mg every week by subcutan eous route for 84 days. 2024 active Not Available Not Available Not Avai lable Vitals Date Recorded Body height Body mass index (BMI) Body weight Heart rate Systolic And Diastolic Provider Name and Address Organization Details Last Updated DateTime 07/08/2023 154.94 cm 33.4 kg/m2 55220.85 g 69 /min 113/68 mm[Hg] Karen Chung [facility] 07/08/2023 14:47:49 Date Recorded Body height Body mass index (BMI) Body weight Systolic And Diastolic Provider Name and Address Organization Details Last Updated DateTime 08/17/2024 154.94 cm 33.3 kg/m2 62851.26 g 121/66 mm[Hg] Dayana Canales [facility] 08/17/2024 14:24:17 Date Recorded Body height Body mass index (BMI) Body weight Systolic And Diastolic Provider Name and Address Organization Details Last Updated DateTime 12/09/2023 154.94 cm 33.6 kg/m2 86069.44 g 122/74 mm[Hg] Karen Sheldon [facility] 12/09/2023 15:34:32 Date Recorded Body height Body mass index (BMI) Body weight Systolic And Diastolic Provider Name and Address Organization Details Last Updated DateTime 12/09/2022 154.94 cm 33.1 kg/m2 53549.66 g 114/62 mm[Hg] Samia Gold [facility] 12/09/2022 14:54:26 Date Recorded Body height Body temperature Oxygen saturation Oxygen saturation in Arterial blood by Pulse oximetry Heart rate Systolic And Diastolic Provider Name and Address Organization Details Last Updated DateTime 4 154.94 cm 97 [degF] 97 % 97 % 66 /min 138/78 mm[Hg] Ramona Lucio MA [facility] 14:38:15 Social History Question Answer Notes LastModified by Organizat ion Details LastModified Time Tobacco Smoking Status Former Smoker started in 1979 Peyman che [facility] 06/28/2013 08:11:10 Education 4 Year College Information not available 12/25/2014 Work Status Full-time Information n ot available 12/25/2014 Living Situation Other Informat ion not available 12/25/2014 Disabled? If Yes, How Long? No Information not available 12/25/2014 An Help Desk Technician Involved? If Yes, Who? No Information not available 12/25/2014 Alcohol Use No Information n ot available 12/25/2014 Do You Currently Or Have You Ever Used Recreational Drugs? If Yes, Specify No Information not available 12/25/2014 Any Addiction Or Substance/drug/a lcohol Abuse Issues? If Yes, Specify No Information not available 12/25/2014 Illicit Drugs No [email or web address] Information not available 06/28/2013 Marital Status Informatio n not available 12/25/2014 What Was The Date Of Your Most Recent Tobacco Screening? 07/03/2021 [email or web address] Information not available 07/03/2021 Are You Sexually Active? No edack Information not available 05/18/2015 How Much Tobacco Do You Smoke? 0.5 PPD Quit In 1996 Information not available 06/28/2013 Sex: Unknown Functional Status Question Answer Note LastModified by Organization D etails LastModified Time What is your level of alcohol consumption? None [email or web address] Information not available 06/28/2013 What is your occupation? retired [email or web address] Information not available 07/21/2022 Mental Status None recorded. Family History Relationship Description Onset Age of this Age Resolved Age Notes LastModified by Organization Details LastModified Time Father Malignant neoplasm of colon edack Not available 2015 15:28:45 Father Diabetes mellitus edack Not available 2015 15:28:45 Mother Aneurysm edack Not available 0 05/18/2015 15:28:45 Mother Dementia edack Not available 0 05/18/2015 15:28:45 Mother Heart failure edack Not available 2015 15:28:45 Brother Hypertensive disorder edack Not available 2015 15:28:45 Daughter Malignant neoplastic disease thyroi d edack Not available 05/18/2015 15:28:45 Sister Diabetes mellitus edack Not available 2015 15:28:45 Medical History Condition Response GERD / reflux Y diabetes Y other Y high cholesterol Y cancer N arthritis Y high blood pressure Y heartburn Y heart disease N anesthesia allergy/complications N CVA/stroke N headaches or migraines Y Gynecological History Statement/Question Response History of abnormal pap yes 05/18/2015 08/12/2014 Para 2 Last menstrual period Obstetrics History GPAL:G 3 P 2 0 0 2 Type Value Full Term 2 Living 2 Total 3 Past Encounters Encounter ID Performer Location Encounter Start Date Encounter Closed Date Diagnosis/Indication Diagnosis SNOMED-CT Code Diagnosis ICD10 Code Diagnosis IMO Codes Diagnosis Note [id number] 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 [address] [place] [address] 01/25/2004 00:00:00 09/18/2005 03:57:43 [id number] Peyman Guzman NP [facility] [address] [address] 06/27/2013 14:34:24 07/14/2013 15:29:34 Epigastric pain 58187312 Chokes whe n swallowing 217251256 Globus sensation 42290572 Nausea 275456549 Gastroesop hageal reflux disease 714385746 Burping 130885488 [id number] Peyman Guzman NP [facility] [address] [address] 08/29/2013 15:27:50 09/14/2013 14:09:38 Gastroesophageal reflux disease 244341601 Epigastric pain [id number] Burping [id number] Nausea [id number] Globus sensation 41265473 Chokes whe n swallowing [id number] Abdominal bloating [id number] Loose stool 872907418 Flatulence/wind [id number] Sean Cevallos MD [facility] [address] [place] [address] [place] [address] 12/25/2014 11:11:49 12/25/2014 12:38:09 Lumbar radiculopathy [id number] M54.16 Lumbar spondylosis 20213 0009 M47.896 Myofascial pain 80123688 9 M79.1 right sacral Bursitis of hip 66412519 M70.71 [id number] MD [facility] [address] [place] [address] [place] [address] 01/22/2015 13:44:05 01/22/2015 15:04:49 Lumbar radiculopathy 586683337 M54.16 Lumbar spondylosis 17946 0009 M47.896 Myofascial pain 96598065 9 M79.1 right sacral Bursitis of hip 68387751 M70.71 Adrenal adenoma 37799777 8 D35.00 Uterine leiomyoma 179002 05 D25.9 [id number] Sean Cevallos MD [facility] [address] [place] [address] [place] [address] 03/19/2015 15:59:29 03/19/2015 16:52:41 Lumbar spondylosis 268550518 M47.896 Myofascial pain 57823253 9 M79.1 right sacral Bursitis of hip 03013666 M70.71 Uterine leiomyoma 950908 05 D25.9 [id number] Clarence Zaragoza MD [facility] [address] [address] 05/18/2015 14:48:01 07/05/2015 07:30:30 Uterine leiomyoma 49981575 D25.9 Urinary incontinence 165 658221 R32 Screening for malignant neoplasm of cervix 718465493 Z12.4 Pain in pelvis 30593556 R10.2 [id number] Clarence Zaragoza MD [facility] [address] [address] 06/13/2015 15:47:46 06/21/2015 13:23:45 Uterine leiomyoma 11456294 D25.9 [id number] Nathan Garzon PA-C [facility] [address] [place] [address] 07/27/2015 17:29:20 07/27/2015 17:55:25 Acute pharyngitis 173789921 J02.9 rapid strep neg. on exam mild erythema. no exudate or enlarged tonsils. will call if culture dictates change in plan. advised rest, fluids, tea with honey, antihistam aaron. if symptoms worsen, dont improve see PCP or RTC. [id number] Roby Fonseca MD Orthoped[facility] [address] [place] [address] 02/01/2016 08:48:43 02/01/2016 09:41:14 Osteoarthritis of knee 124456529 M17.12 60 yo F with L knee pain worsening over the past few months. Approx 2 years ago, had an incident tripping over a dog but otherwise no recent injury or traum, change in activity. She has not tried any interventi ons at this time. XR: Mild degenerati ve changes left knee. She does note occasional numbness/t ingling in L foot but clarified it is related to her known bulging disc in back. Offered her cortisone, but she would like to think about and potentiall y make follow up. She will also discuss NSAID regimen with PCP . [id number] Baldev Saunders MD [facility] [address] [facility] 104 [place] [address] 03/21/2016 14:56:05 03/21/2016 16:21:43 Esophageal dysphagia 87580663 R13.19 [id number] Dirk Jolly MD Orthopedi cs [address] [facility], [address] [place] [address] 05/15/2017 07:52:57 05/15/2017 08:19:08 Osteoarthritis of knee 499253170 M17.12 [id number] Juliana Ervin PA-C [facility] [address] [place] [address] 12/13/2017 16:28:39 12/14/2017 10:50:05 Upper respiratory infection 62371109 J06.9 Worsening cough with fever x7 days wth concern for infiltrate LLL. Treat as below. Advised rest, fluids, tylenol/ib uprofen PRN. Follow up in 2-3 days with PCP if not improving or sooner if worsening. Type 2 nikole betes mellitus without complication [id number] E11.9 Pt with known DM type 2, glucose 194 today on exam. Advise f/u with PCP/endo for ongoing management [id number] Dima Price MD [facility] [address] [facility] [place] [address] 01/13/2018 10:12:51 01/13/2018 11:23:36 Type 2 diabetes mellitus 15921664 E11.9 Mrs. Sarmiento has type 2 diabetes. She has paresthesi as in the feet that may represent acute glucose toxicity rather than peripheral neuropathy . We will monitor that. There are no other microvascu lar or macrovascu lar complicati ons. The most recent HgBA1c is 6.9%. Blood sugars are now well-contr olled with the addition of a sulfonylur ea. Barriers include lack of glucose testing. She cannot get blood from a fingerstic k. She purchased a Sandra CGM but has visual impairment and can't read the directions . She would benefit from another visit with MNT for help with a meal plan. She is missing her second metformin dose regularly. Recommend: - Referral MNT - Instructed to carry emergency glucose at all times - Asked to contact the office if she has difficulty with hypoglycem ia after she modifies her diet. Provided parameters . - Changed to metformin to extended release. She is missing the p.m. dose regularly. Can take 1 g in the morning. She has been intolerant of immediate release at larger doses. We may be able to push up the extended release if she does well. If not well-daniel ated divide BID as she is doing now, but work on getting metformin consistent ly - Continue the sulfonylur ea - Schedule RN-CDE visit. We can help her use the Sandra sensor, but this is a large out-of-poc ket expense for her. We will work on her fingerstic k technique. Hyperlipidemia 64795536 E78.2 The 2018 ADA diabetes standards of care recommend moderate intensity statins for primary prevention in patients over 40 with diabetes. The 2013 ACC/AHA guidelines use a risk based approach, and either moderate or high intensity statins can be indicated for primary prevention based on the calculated CV risk score. Her score is 11% She has a reasonable lipid profile on a moderate intensity statin. Triglyceri manuela should have improved with better glycemic control. Recommend: - Repeat the lipid profile prior to her next visit - We can discuss the rationale for high-inten sity statin therapy at her follow-up and decide if it's appropriat e for her Essential hypertension 17663134 I10 Based on the 2018 ADA treatment guidelines , the recommende d goal blood pressure for most patients with diabetes and HTN is less than 140/90. More aggressive blood pressure goals might be appropriat e for younger patients, patients with chronic kidney disease or other co-morbidi ties. Blood pressures well-contr olled today on her PHAM inhibitor and other antihypert ensives. Recommend: - No changes recommende d today Admin notes A report was sent to the requesting provider This report was prepared using [employer] software. Please excuse any inadverten t errors caused by mistranscr iption. Chart opened and initial entries by Mamie Barbosa MA and Clinical Data Coordinator. I have reviewed and amended her entries and edited as indicated [id number] Endo Nurse [facility] [address] [place] [address], [address] [place] [address] 01/18/2018 15:00:06 01/18/2018 15:53:22 Type 2 diabetes mellitus 85861280 E11.9 Diabetes Education: Patient was seen by Dr. Price last week 01/13/18, and said that she bought the Sandra and paid fontana for the device because she could not get blood out of her fingers to do a fingerstic k. Patient came to the office today to learn how to use a Verio glucometer , and the Sandra CGM. Using a verio meter and [employer] lancet device patient was instructed step by step on how to use her glucometer . I also marked the pages in the instructio n book that comes with the meter so patient has a source to refer to. Patient was able to return demonstrat e a fingerstic k using excellent technique. She had now issues obtaining blood using the device as instructed . Monday 01/15 Patient's daughter brought her SANDRA 10 day CGM, however the sensor was and the [place] is not compatible with the 14 day sensor. Today when the patient arrived I explained that the sensor the was dropped off was and the reader would not work for the newer 14 day sensor. With patient's permission I disposed of both items. I provided the patient with a 14 day sensor and 14 day reader. SENSOR code H86, SN: [id number] D. [place] code REF 38297-29 LOt [id number], SN [id number] 565. Patient was instructed on the use of the SANDRA PERSONAL CGM device. She states that the print and instructio ns on the production truck driver were too small so I printed the instructio ns in large print. Using and injection pad and the sensor patient was able to return demonstrat e the placement of the Sandra Personal sensor using excellent technique. Using sensor provided patient cleansed insertion site to upper arm with an alcohol pad, allowed area to dry, set up sensor, ensuring codes on last inserter and sensor matched, and placed first sensor, using excellent technique. She was able to hold reader over sensor and start the device. She understand s that the warm up period is 60 minutes, and then she will be able to obtain readings. Handouts: Step by step insertion guide Sandra manual Printed in large print Total time spent 1 hour. 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 There are no other microvascu lar or macrovascu lar complicati ons. The most recent HgBA1c increased from 6.9% to 7.5%. both well below her baseline. I told Kasi it's common for the A1c to increase after a significan t improvemen t. CGM has been helpful in monitoring her BG as her vision has made it difficult to check CBG. Tracings indicate overall good control, but inconsiste nt CHO intake with episodic post prandial spikes. She is tolerated metformin ER better than IR Recommend: - Schedule MNT follow up. Work on consistent CHO. - Increased metformin to 1500 mg ER daily. Discussed timing options - Continue the sulfonylur ea - increase activity as tolerated - follow up three months Hyperlipidemia 60147941 E78.2 Mrs. Sarmiento has a reasonable lipid profile on a moderate intensity statin. Triglyceri manuela should have improved with better glycemic control. Recommend: - Continue moderate intensity Smith - Fasting lipid profile next visit Essential hypertension 71391520 I10 Blood pressure iswell-con trolled today. She is taking an PHAM inhibitor, CCB and thiazide Recommend: - . Continue current antihypert ensives Admin notes A report was sent to the requesting provider This report was prepared using [employer] software. Please excuse any inadverten t errors caused by mistranscr iption. Chart opened and initial entries by Mamie Barbosa MA and Clinical Data Coordinator. 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 There are no other microvascu lar or macrovascu lar complicati ons. Her HgBA1c improved to 7.0% in July. It is too early to repeat the A1c. She is doing well on a combinatio n of HENDRICKSON and SGLT2i. Her weight is coming down nicely with the low dose SGLT2i. She is having post prandial highs after lunch and supper. She is working with Karen Fisher on he diet. Recommend: - Continue to work with MNT - Continue the sulfonylur ea - Increased the Jardiance to 25 mg. - BMP in two weeks - If sugars are running lower with the higher SGLT2i dose we can back of the HENDRICKSON - Reviewed black box warnings concerning the SGLT2i. Stop for UTI, yeast infection, groin rash or foot lesions. Do not resume until fully resolved. Patient states understand ing. - follow up three months Hyperlipidemia 10350623 E78.2 Mrs. Sarmiento is on a moderate intensity dose of lovastatin . Triglyceri manuela and LDL are higher than optimal. I would favor changing the statin, but she's had prior intoleranc es. She is not sure which statins she's tried in the past. Recommend: - Continue lovastatin for now - She will be seeing Dr. Mcgraw next week. Asked to verify what statins she's tried in the past. If no prior intoleranc es favor switching to atorvastat in or rosuvastat in - Fasting lipid profile next visit Essential hypertension 71183949 I10 Blood pressure iswell-con trolled today. She is on an PHAM inhibitor, CCB and thiazide Recommend: - . Continue current antihypert ensives Admin notes A report was sent to the requesting provider This report was prepared using [employer] software. Please excuse any inadverten t errors caused by mistranscr iption. Chart opened and initial entries by Mamie Barbosa MA and Clinical Data Coordinator. 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 There are no other microvascu lar or macrovascu lar complicati ons. Her HgBA1c increased to 7.1% in November from 7.0% in July She is doing well on a combinatio n of HENDRICKSON and SGLT2i. Her weight is coming down nicely with the low dose SGLT2i. She is having post prandial highs after lunch and supper, we discussed lifestyle modificati ons to improve this (eating smaller lunch, exercise). Recommend: - Continue to work with MNT - Continue the sulfonylur ea - Continue Jardiance 10 mg daily - Reviewed black box warnings concerning the SGLT2i. Stop for UTI, yeast infection, groin rash or foot lesions. Do not resume until fully resolved. Patient states understand ing. - follow up three months Hyperlipidemia 88958528 E78.2 Mrs. Sarmiento is on a moderate intensity dose of atorvastat in. Triglyceri manuela and LDL are higher than optimal. = Recommend: - Increase Atorvastat in to 20 mg daily (increase slowly due to previous statin intoleranc es) - Fasting lipid profile next visit Essential hypertension 89186154 I10 Blood pressure iswell-con trolled today. She is on an PHAM inhibitor, CCB and thiazide Recommend: - . Continue current antihypert ensives [id number] Endo Nurse [facility] [address] [place] [address] 08/03/2019 10:37:56 08/03/2019 12:47:11 Type 2 diabetes mellitus 37439504 E11.9 Nurse visit [id number] Patient came in for her appointmen t today. She was provided a Sandra 14 sample sensor and production truck driver. Kasi has been using Sandra CGM for some time. She was able to accurately verbalize process for inserting and starting sensor. She wants to wait to insert sensor until after her mammogram and bone density scan today. Also provided Kasi with paper glucose log so that she can track her blood sugar readings 4 times daily for 2 weeks. Kasi instructed to call office with any questions or concerns. Made an appointmen t for her to return with sensor and production truck driver on 08/17/2019 at 4pm so that data can be uploaded. DEBI Tolbert, RN [id number] Philippe Dolan MD [facility] [address] [place] [address] [address] [address] 08/03/2019 13:01:22 08/03/2019 13:34:36 History of polyp of colon 902321001 Z86.010 Family his tory of cancer of colon 933078140 Z80.0 Altered percy wel function 55669148 R19.4 The patient is concerned about a change in bowel movements, with possiible blood in the stool. We are scheduling the patient for a colonoscop y. [id number] Ashlyn Hassan MD [facility] [address] [place] [address] [address] [address] 08/11/2019 18:47:33 08/11/2019 18:48:22 Viral screening 731560968 Z11.59 [id number] Endo Nurse [facility] [address] [place] [address] [address] [place] [address] 08/17/2019 14:25:43 08/17/2019 15:16:52 Type 2 diabetes mellitus 62791999 E11.9 Nurse visit [id number] Patient came in today after wearing Sandra sensor for 14 days. Kasi also kept a handwritte n glucose log. Able to upload Sandra data to [employer] site and print out report. Removed sensor from left arm, no bleeding or bruising noted, bandage applied. Kasi stated that she experience d some discomfort after inserting sensor. Reviewed with Kasi insertion technique, she verbalized understand ing. Will review report with Dr. 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 There are no other microvascu lar or macrovascu lar complicati ons. Her HgBA1c increased from 7.1% to 8.3%. She did not milk pickup driver test strips after her CGM request was sent. This has been slow in process, and as a result no CBG over the last month. She has a large PP spike after AM meal. Minimal impact from her lunch and supper CHO. Physical activity limited during COVID PHE She needs a 3rd agent. We discussed the various oral and injectable medication options to include the DPPIVi, TZD, GLP1RA medication s. Discussed insulin. Expected efficacy, cost, typical side effects, and safety concerns of each class of medication reviewed. Recommend: - Continue the sulfonylur ea - Continue Jardiance 10 mg daily (max tolerable dose) - Reviewed black box warnings concerning the SGLT2i. Stop for UTI, yeast infection, groin rash or foot lesions. Do not resume until fully resolved. Patient states understand ing. - Start Januvia 100 mg daily. If not meeting goals we can switch to a GLP1RA - follow up three months Hyperlipidemia 90383409 E78.2 We increased atorvastat in last time. Lipids are improved. Tg is slightly elevated, and should improve with better glycemic control.. She has some statin intoleranc e, but is doing well on Atorvastat in 20 mg. Recommend: - Continue Atorvastat in to 20 mg Essential hypertension 74580850 I10 Blood pressure iswell-con trolled today. She is on an PHAM inhibitor, CCB and thiazide Recommend: - . Continue current antihypert ensives Hypothyroidism 13212549 E03.9 Kasi has primary hypothyroi dism. There is no history of goiter or thyroid nodules. TSH is normal on levothyrox ine. Recommend: - Continue levothyrox ine 125 mcg daily Admin notes A report was sent to the requesting provider This report was prepared using [employer] software. Please excuse any inadverten t errors caused by mistranscr iption. Chart opened and initial entries by Alexa Garcia MA and Clinical Data Coordinator. 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 There are no other microvascu lar or macrovascu lar complicati ons. Her HgBA1c improved to 8.0% from 8.3% in August Her A1c remains above goal, she has been unable to tolerate Januvia and Jardiance, we will stop these today and start GLP1RA. We discussed the mechanism of action, risks and side effects, she was shown how to use Trulicity in office today. Additional lifestyle modificati ons would optimize his control, these were discussed and encouraged today. Recommend: - Continue the sulfonylur ea - Stop Jardiance (recurrent yeast infections ) - Stop Januvia - Start Trulicity 0.75 mg weekly, if tolerating increase in 1 month - follow up three months Hyperlipidemia 68960207 E78.2 Lipids are improved. Tg is slightly elevated, and should improve with better glycemic control.. She has some statin intoleranc e, but is doing well on Atorvastat in 20 mg. Recommend: - Continue Atorvastat in to 20 mg Essential hypertension 79592472 I10 Blood pressure iswell-con trolled today. She is on an PHAM inhibitor, CCB and thiazide Recommend: - . Continue current antihypert ensives Hypothyroidism 94916287 E03.9 Kasi has primary hypothyroi dism. There is no history of goiter or thyroid nodules. TSH is normal on levothyrox ine. Recommend: - Continue levothyrox ine 125 mcg daily [id number] Dima Price MD [facility] [address] [facility] [place] [address] 12/25/2020 14:39:38 12/25/2020 15:28:01 Type 2 diabetes mellitus 45437694 E11.42 E11.65 Mrs. Sarmiento has type 2 diabetes with peripheral neuropathy . There are no other microvascu lar or macrovascu lar complicati ons. Her hemoglobin A1c is unchanged at 7.7%. Unfortunat kelly, she is not able to tolerate the 3mg dulaglutid e dose. I suspect she will need basal-bolu s insulin due to her high blood sugars, need to reduce the dulaglutid e, and intoleranc e to other medication s. She would prefer to continue dulaglutid e a lower dose. She has some constipati on at the 1.5 mg dose but finds it tolerable. Prior to committing to basal-bolu s we will try titrating up the basal and see if taking the dulaglutid e more consistent ly helps better control her blood sugars. Recommend: -Reduce dulaglutid e to 1.5 mg weekly-Inc rease Lantus insulin to 22 units -Continued glipizide ER 10 mg daily -Review CGM in 3 weeks -If intolerant of dulaglutid e, or if she has inadequate control despite optimizing the basal we will discontinu e the sulfonylur ea and start basal-bolu s -Follow-up 3 months Hyperlipidemia 13709519 E78.2 Primary prevention . Lipids are very well controlled . She is on a moderate intensity statin. LDL is 48, triglyceri manuela 147. Recommend: -Continue to moderate intensity statin Essential hypertension 13290126 I10 Systolic blood pressure is minimally elevated today. She states blood pressures at her PCP office are at goal. She is on an PHAM inhibitor, CCB and thiazide. Recommend: -No changes made today -If necessary for better blood pressure control we can increase the PHAM or the CCB Hypothyroidism 76191016 E03.9 Kasi has primary hypothyroi dism. There is no history of goiter or thyroid nodules. Her TSH in August was normal on levothyrox ine replacemen t. Recommend: - Continue levothyrox ine 125 mcg daily-TSH annually Admin notes A report was sent to the requesting provider Portions of the record were created with [employer] software. Occasional wrong-word or sound-christian-tahmina palmer substituti ons may have occurred due to the inherent limitation s of [employer] software. Please read the chart carefully and recognize, using context, where substituti ons have occurred. Chart opened and initial entries by Alexa Garcia MA and Clinical Data Coordinator. I have reviewed and amended her entries and edited as indicated I spent 51 minutes in reviewing the record, seeing the patient and frannyin g in the medical record. [id number] Dima Price MD [facility] [address] [place] [address],[address] [address] 03/26/2021 15:44:30 03/26/2021 16:15:08 Type 2 diabetes mellitus 69858871 E11.42 E11.65 Z79.4 Mrs. Sarmiento has type 2 diabetes with peripheral neuropathy . There is no history of other microvascu lar complicati ons. There is no history of macrovascu lar disease. Hemoglobin A1c is unchanged at 7.7%. She is on a maximally tolerated dose of dulaglutid e, and further increasing her glipizide XL is unlikely to improve her blood sugars. There is room to increase her basal insulin. Multiple medication intoleranc es limit therapeuti c options. She may require prandial insulin, either basal-bolu s or 70/30. However, I would like to optimize her basal insulin first. Recommend: -Discussed importance of scanning at every 8 hours at a minimum while wearing CGM so we have as much data as possible for titrating her insulin -We resent prescripti ons for her CGM supplies. It is unclear to me why she is getting shipped insufficie nt number of sensors -Continued glipizide and dulaglutid e -Increased Lantus to 28 units -CGM in 2-3 weeks -Continue to slowly titrate up the Lantus until we get around 40-45 units. If daytime sugars are still high at that point we can add prandial -Follow-up 3 months Hyperlipidemia [id number] E78.2 Primary prevention . Lipids are well controlled on a moderate intensity statin. LDL 68, triglyceri de 149. Recommend: -Continue moderate intensity statin. Essential hypertension 91698613 I10 Blood pressure is reasonably controlled today. She is on an PHAM inhibitor, CCB, and thiazide. Recommend: -Continue current antihypert ensives Hypothyroidism 39621299 E03.9 Primary hypothyroi dism with no history of goiter or thyroid nodules. TSH in January was normal. Recommend: -Continue levothyrox ine 125 mcg daily. -Check TSH annually Admin notes A report was sent to the requesting provider Portions of the record were created with [employer] software. Occasional wrong-word or sound-alvaro palmer substituti ons may have occurred due to the inherent limitation s of voice recognitio n software. Please read the chart carefully and recognize, using context, where substituti ons have occurred. Chart opened and initial entries by Mamie Barbosa MA and Clinical Data Coordinator. I have reviewed and amended her entries and edited as indicated I spent 28 minutes in reviewing the record, seeing the patient and frannyin ruthie in the medical record. Time excludes CGM interpreta tion [id number] Yuniel Kim NP, S [facility] [address] [place] [address] 06/25/2021 15:00:19 06/25/2021 15:32:01 Acute sinusitis [id number] J01.90 Suspect bacterial infection at this time. Will treat with antibiotic as below. Educated pt on side effects, including nausea and diarrhea. Recommende d pt takes a probiotic daily or eats yogurt while on antibiotic therapy. Encouraged pt to stay well hydrated and rest. Recommend saline nasal spray/nett i pot, Tylenol/Ib uprofen PRN. Pt to f/u in 3-5 days if symptoms are not improving or have worsened. Cough [id number] R05.1 [id number] Dima Price MD [facility] [address] [place] [address], [address] [place] [address] 07/03/2021 14:28:21 07/03/2021 15:13:06 Type 2 diabetes mellitus [id number] E11.42 E11.65 Z79.4 Mrs. Sarmiento has type 2 diabetes. She has peripheral neuropathy with intact protective sensory function. There were no other microvascu lar complicati ons. There is no history of macrovascu lar disease. Hemoglobin A1c has decreased from 7.7% to 7.2%. However, I suspect this is spuriously low. Her GMI is 7.9% She is metformin intolerant . She is on an HENDRICKSON, dulaglutid e and basal insulin. She is intolerant of SGLT2i (candidias is). CGM indicates she probably needs prandial insulin at this point. However, before making that change I would like to optimize her basal insulin dose first. Recommend: -Increased Lantus insulin to 32 units -Given Lantus self titration scale. Maximal dose 50 units -If sugars are above goal next time we can add prandial Hyperlipidemia 31432604 E78.2 Primary prevention . Lipids were very well controlled in March on a moderate intensity statin. LDL 68, triglyceri de 149. Recommend: -Continue moderate intensity statin Essential hypertension 26497619 I10 Blood pressure is well controlled today. She is on an PHAM inhibitor, CCB, and thiazide. She does not have albuminuri a Recommend: -Continue current antihypert ensives Hypothyroidism 29050962 E03.9 Primary hypothyroi dism. There is no history of goiter or thyroid nodules. TSH in January was normal. Recommend: -Continue levothyrox ine 125 mcg daily.-Nellie ck TSH annually Admin notes A report was sent to the requesting provider Portions of the record were created with [employer] software. Occasional wrong-word or sound-a-li ke substituti ons may have occurred due to the inherent limitation s of [employer] software. Please read the chart carefully and recognize, using context, where substituti ons have occurred. Chart opened and initial entries by Alexa Garcia MA and Clinical Data Coordinator. I have reviewed and amended her entries and edited as indicated [id number] GERBER MAYS NP [facility] [address] [place] [address] [address] [place] [address] 10/24/2021 13:55:05 10/24/2021 14:28:58 Type 2 diabetes mellitus [id number] E11.42 E11.65 Z79.4 Mrs. Sarmiento has type 2 diabetes. She has peripheral neuropathy with intact protective sensory function. There were no other microvascu lar complicati ons. There is no history of macrovascu lar disease. Hemoglobin A1c has decreased again to 7.2% from 7.7%. She reports GI side effects on Trulicity, they are tolerable but she would like to trial Ozempic today, sample provided and she will call us if she would like a prescripti on. Additional treatment options are limited due to past intoleranc es. Recommend: -Continue Lantus 38 units daily-Give n Lantus self titration scale. Maximal dose 50 units- Trial Ozempic 0.5 mg weekly, call if would like a prescripti on- ly follow up here Hyperlipidemia 43539110 E78.2 Primary prevention . Lipids were very well controlled in March on a moderate intensity statin. LDL 68, triglyceri de 149. Recommend: -Continue moderate intensity statin Essential hypertension 35286997 I10 Blood pressure is well controlled today. She is on an PHAM inhibitor, CCB, and thiazide. She does not have albuminuri a Recommend: -Continue current antihypert ensives Hypothyroidism 16772509 E03.9 Primary hypothyroi dism. There is no history of goiter or thyroid nodules. TSH is low on her current dose of Levothyrox ine Recommend: -REDUCE Levothyrox ine to 112 mcg daily mcg daily.-Nellie ck TSH in 6 weeks [id number] [facility] [address] [facility], [address] [place] [address] 01/30/2022 15:31:01 01/30/2022 15:50:29 Type 2 diabetes mellitus 23400595 E11.42 E11.65 Z79.4 Mrs. Sarmiento has type 2 diabetes. She has peripheral neuropathy with intact protective sensory function. There were no other microvascu lar complicati ons. There is no history of macrovascu lar disease. Hemoglobin A1c remains at goal at 6.9%. She has been able to intesify her GLp1RA dose by changing from trulicity to Ozempic, resulting in weight loss and reduce insulin requiremen ts. Additional treatment options are limited due to past intoleranc es. Recommend: -REDUCE Lantus 26 units daily-Give n Lantus self titration scale. Maximal dose 50 units- Continue Ozempic 1 mg weekly-austyn rterly follow up here Hyperlipidemia 52356745 E78.2 Primary prevention . Lipids were very well controlled this month on a moderate intensity statin. LDL 678, triglyceri de 156 Recommend: -Continue moderate intensity statin Essential hypertension 46636930 I10 Blood pressure is well controlled today. She is on an PHAM inhibitor, CCB, and thiazide. She does not have albuminuri a Recommend: -Continue current antihypert ensives Hypothyroidism 10227937 E03.9 Primary hypothyroi dism. There is no history of goiter or thyroid nodules. She is now euthyroid since reducing her Levothyrox ine dose last visit. Recommend: -Continue Levothyrox ine to 112 mcg daily mcg daily. [id number] [facility] [place] Office [address] [place] [address] 06/11/2022 15:15:44 06/11/2022 15:42:02 Type 2 diabetes mellitus 02833037 E11.42 E11.65 Z79.4 Mrs. Sarmiento has type 2 diabetes. She has peripheral neuropathy with intact protective sensory function. There were no other microvascu lar complicati ons. There is no history of macrovascu lar disease. Hemoglobin A1c remains at goal at 6.4%. She has been able to intensify her GLp1RA dose by changing from trulicity to Ozempic, resulting in weight loss and reduce insulin requiremen ts. Additional treatment options are limited due to past intoleranc es. Recommend: - Lantus 26 units daily-Give n Lantus self titration scale. Maximal dose 50 units- Continue Ozempic 1 mg weekly-austyn rterly follow up here Hyperlipidemia 73853746 E78.2 Primary prevention . Lipids were very well controlled this month on a moderate intensity statin. LDL 51 Recommend: -Continue moderate intensity statin Essential hypertension 47132065 I10 Blood pressure is well controlled today. She is on an HPAM inhibitor, CCB, and thiazide. She does not have albuminuri a Recommend: -Continue current antihypert ensives Hypothyroidism 61310498 E03.9 Primary hypothyroi dism. There is no history of goiter or thyroid nodules. She is currently euthyroid. She reports brittle nails and hair thinning, she prefers to keep her TSH higher, we will increase her dose today and repeat in 6 weeks. Recommend: -Continue Levothyrox ine to 112 mcg daily mcg daily. [id number] [facility] [address], [address] [place] [address] 07/21/2022 14:43:59 07/21/2022 15:27:48 Osteoarthritis of right knee joint [id number] 13486 M17.11 This a very pleasant 66-year-ol d female being seen for complaint of bilateral knee pain right greater than left. X-rays were obtained and reviewed which show significan t osteoarthr itis of the right knee with medial joint space narrowing. She has tenderness over the medial joint space. She has a slightly positive Joan's sign. There is no ligament laxity noted. No evidence of DVT. We discussed a cortisone injection for treatment. Patient acknowledg ed consent for cortisone injection to the right knee. She has never had a cortisone injection to the right knee. She has had a previous cortisone injection to the left knee. Patient acknowledg ed consent for cortisone injection to the right knee. Patient tolerated injection well. Patient to follow-up in a week or 2 where we can make a decision on whether we need to inject the left knee. Patient agrees with plan. [id number] [facility] [address] [place] [address] [address] [place] [address] 12/09/2022 14:47:31 12/11/2022 08:14:27 Type 2 diabetes mellitus 55203707 E11.42 E11.65 Z79.4 Mrs. Sarmiento has type 2 diabetes. She has peripheral neuropathy with intact protective sensory function. There were no other microvascu lar complicati ons. There is no history of macrovascu lar disease. Hemoglobin A1c remains at goal at 6.4%, GMI is 6.7%. We will reduce Lantus dose today otherwise she is doing well on HENDRICKSON, basal insulin and GLP1RA therapy. Recommend: - Lantus 22 units daily-Give n Lantus self titration scale. Maximal dose 50 units- Continue Ozempic 1 mg weekly-austyn rterly follow up here Hyperlipidemia 76404291 E78.2 Primary prevention . Lipids were very well controlled this month on a moderate intensity statin. LDL 54 Recommend: -Continue moderate intensity statin Essential hypertension 98660115 I10 Blood pressure is well controlled today. She is on an PHAM inhibitor, CCB, and thiazide. She does not have albuminuri a Recommend: -Continue current antihypert ensives Hypothyroidism 14080293 E03.9 Primary hypothyroi dism. There is no history of goiter or thyroid nodules. Recommend: -REDUCE Levothyrox ine to 125 mcg 6 tablets per week, repeat TSH in 6 weeks Adrenal adenoma [id number] [address] D35.[address] Arredondo, has not been seen since 2016. She also has a history of postoperat mark hypothyroi dism, with partial parathyroi dectomy. Per Dr. Arredondo notes adrenal masses were stable and low risk malignancy . [id number] [facility] [place] [facility] [address] [place] [address] 07/08/2023 14:30:17 07/08/2023 15:21:33 Type 2 diabetes mellitus [id number] E11.42 E11.65 Z79.4 Mrs. Sarmiento has type 2 diabetes. She has peripheral neuropathy with intact protective sensory function. There were no other microvascu lar complicati ons. There is no history of macrovascu lar disease. Hemoglobin A1c has increased to 7.3% from 6.4% in November, GMI is better at 6.7%. She is doing well on HENDRICKSON, basal insulin and GLP1RA therapy. Recommend: - Lantus 22 units daily-Give n Lantus self titration scale. Maximal dose 50 units- Continue Ozempic 1 mg weekly-austyn rterly follow up here Hyperlipidemia 48986705 E78.2 Primary prevention . Lipids are historical ly well controlled on statin therapy, she unfortjackie mendoza is getting myalgias, she will trial Rosuvastat in 5 mg QOD and has follow up with PCP next week, may need ezetimibe Essential hypertension 23927948 I10 Blood pressure is well controlled today. She is on an PHAM inhibitor, CCB, and thiazide. She does not have albuminuri a Recommend: -Continue current antihypert ensives Hypothyroidism 98586053 E03.9 Primary hypothyroi dism. There is no history of goiter or thyroid nodules. Recommend: -REDUCED Levothyrox ine to 125 mcg 6 tablets per week at last visit, TSH now normal [id number] [facility] [place] [facility] [address] [place] [address] 12/09/2023 15:20:25 12/09/2023 15:47:21 Type 2 diabetes mellitus [id number] E11.42 E11.65 Z79.4 Mrs. Sarmiento has type 2 diabetes. She has peripheral neuropathy with intact protective sensory function. There were no other microvascu lar complicati ons. There is no history of macrovascu lar disease. Hemoglobin A1c has improved to 6.6% from 7.3% in June, GMI is 6.6%. She is doing well on HENDRICKSON, basal insulin and GLP1RA therapy. We will reduce her Lantus dose today. Recommend: - Lantus 18 units daily-Give n Lantus self titration scale. Maximal dose 50 units- Continue Ozempic 1 mg weekly-austyn rterly follow up here Hyperlipidemia 00005483 E78.2 Primary prevention . Lipids are historical ly well controlled on statin therapy, she unfortunat kelly is getting myalgias and has failed rechalleng e. Will start Ezetimibe today Essential hypertension 18387708 I10 Blood pressure is well controlled today. She is on an PHAM inhibitor, CCB, and thiazide. She does not have albuminuri a Recommend: -Continue current antihypert ensives Hypothyroidism 04279128 E03.9 Primary hypothyroi dism. There is no history of goiter or thyroid nodules. Recommend: - Levothyrox ine to 125 mcg 6 tablets per week at last visit, TSH now normal [id number] Dixie Rodriguez NP [facility] [address] [place] [address] 12/25/2023 13:59:29 12/25/2023 15:24:10 Diarrhea of presumed infectious origin [id number] A09 - exam WNl, vss- ? d/t zetia although taken only one dose - could be an irritant colitis s/p medication - encouraged BRAT diet, increased fluids- check stool studies- pt does not want to take an anti-diarr hea- f/u if not improving/ worsening for further evaluation [id number] GERBER MAYS NP [facility] - [place] [facility] [address] [place] [address] 08/17/2024 14:13:07 08/25/2024 06:30:04 Type 2 diabetes mellitus 39515366 E11.42 E11.65 Z79.4 Mrs. Sarmiento has type 2 diabetes. She has peripheral neuropathy with intact protective sensory function. There were no other microvascu lar complicati ons. There is no history of macrovascu lar disease. Hemoglobin A1c continues to improve to 6.3% from 6.6% in November, GMI is 6.6%. She is doing well on HENDRICKSON, basal insulin and GLP1RA therapy. We will reduce her Lantus dose today. Recommend: - Lantus 16 units daily-Give n Lantus self titration scale. Maximal dose 50 units- Continue Ozempic 1 mg weekly-austyn rterly follow up here Hyperlipidemia 00194105 E78.2 Secondary prevention , unable to tolerate statins or ezetimibe, LDL 120, will start PCSK9i Essential hypertension 81765521 I10 Blood pressure is well controlled today. She is on an PHAM inhibitor, CCB, and thiazide. She does not have albuminuri a Recommend: -Continue current antihypert ensives Hypothyroidism 64654788 E03.9 Primary hypothyroi dism. There is no history of goiter or thyroid nodules. Recommend: - Levothyrox ine to 125 mcg 6 tablets per week at last visit, TSH now normal Coronary arteriosclerosis 38559601 I25.10 [id number] Moderate severe coronary artery calcificat ions on CT, has failed statin and ezetimibe, will start PCSK9i Health Concerns Section Related Observation LastModified by Organization Detai ls LastModified Time None Recorded Concern Status LastModified by Organization Details LastModified Time None Recorded Advance Directives Directive None Recorded Payers Insurance Date Sequence Insurance Name Policy Number Policy Leon Covered Member ID Leon Member ID Guarantor Name 12/09/2023 2 [employer] Kasi Sarmiento [id number] Kasi Sarmiento 12/09/2023 1 [place] [facility] Kasi Sarmiento [id number] Kasi Sarmiento 12/09/2023 2 [place] [facility] Kasi Sarmiento [id number] Kasi Sarmiento 12/09/2023 1 [facility] (O) Kasi Sarmiento [id number] Kasi Sarmiento 12/09/2023 1 [facility] [id number] Kasi Sarmiento [id number] Kasi Sarmiento 12/09/2023 1 [facility] (O) [id number] Kasi Sarmiento [id number] Kasi Sarmiento 12/26/2024 2 [place] [facility] Kasi Sarmiento [id number] Kasi Sarmiento 12/26/2024 1 [facility] (MEDICARE REPLACEMENT HMO) Kasi Sarmiento [id number] Kasi Sarmiento 12/09/2023 1 [place] [employer] Kasi Sarmiento [id number] Kasi Sarmiento 12/09/[address] [facility] (PPO) Kasi Sarmiento [id number] Kasi Sarmiento 12/09/2023 1 [facility] [id number] Kasi Sarmiento [id number] Kasi Sarmiento 12/09/2023 2 [facility] (MEDICAID HMO) [id number] Kasi Sarmiento [id number] Kasi Sarmiento 12/09/2023 1 [facility] [id number] Kasi Sarmiento [id number] Kasi Sarmiento Notes Date Note Type Note Provider Name and Address Organization Details Recorded Time 3 text/html Kasi is a 66 year old woman being seen in follow up for Type 2 Diabetes.Diabetes history:Diabetes type: Type 2Age at onset: 60Family History of diabetes: Father, sister, and other maternal family members.Last Dilated Eye Exam: 2Ophthalmology Result: No report, no DR per patientOphthalmologist: [facility] EyeNephropathy present: NoLast DANIEL/CR: NOT DETECTED 12/05/22Neuropathy: YesNeuropathy Type: PeripheralLast Foot Exam: 12/09/22ASCAD: NoPAD: NoDaily ASA: YesCo-Morbid Conditions: HTN, hyperlipidemia, BMI 35.2, LAE abnormality ([facility], 2011 US with fatty infiltration and serology negative, FIB-4 1.17 on 09/05/17), Strabismus ([facility] neuro-ophthalmology)MNT with Karen Fisher RDN 02/12/18DM Medications1. Ozempic 1 mg weekly2. Glipizide ER 10 mg daily3. Lantus 26 units at bedtimePrior DM and related medications:Metformin IR: GIMetformin ER: constipationSimvastatin : IntolerantReports intolerance to other statins, but not sure which and what type of reactionjanuvia: headaches, aggravates arthritisjardiance: recurrent yeast infectionTrulicity 1.5: max tolerated dose (nausea)Diabetes self management topics identified and discussed with patient today:-ROHAN 06/11 A1c 6.4% no changes to regimen- 2 lb weight loss since last visit- CGM supplies through [employer]- increase levothyroxine dose last visit, TSH now low, does not want to change dose as hair has improved-some overnight lows- denies missing doses of medications- found old paperwork regarding adrenal mass, wonders if she needs additional work up, previously followed by dr. blanco MAYS, 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 [address] [place] [address], [phone], [facility] 12/09/2022 16:14:31 4 text/html Kasi is a 67 year old woman being seen in follow up for Type 2 Diabetes.Diabetes history:Diabetes type: Type 2Age at onset: 60Family History of diabetes: Father, sister, and other maternal family members.Last Dilated Eye Exam: 2023Ophthalmology Result: No report, no DR per patientOphthalmologist: [facility] EyeNephropathy present: NoLast DANIEL/CR: tnp 06/30/23Neuropathy: YesNeuropathy Type: PeripheralLast Foot Exam: 07/08/23ASCAD: NoPAD: NoDaily ASA: YesCo-Morbid Conditions: HTN, hyperlipidemia, BMI 35.2, LAE abnormality ([facility], 2011 US with fatty infiltration and serology negative, FIB-4 1.17 on 09/05/17), Strabismus ([facility] neuro-ophthalmology)MNT with Karen Fisher RDN 02/12/18DM Medications1. Ozempic 1 mg weekly2. Glipizide ER 10 mg daily3. Lantus 26 units at bedtimePrior DM and related medications:Metformin IR: GIMetformin ER: constipationSimvastatin : IntolerantAtorvastatin: leg achesReports intolerance to other statins, but not sure which and what type of reactionjanuvia: headaches, aggravates arthritisjardiance: recurrent yeast infectionTrulicity 1.5: max tolerated dose (nausea)Diabetes self management topics identified and discussed with patient today:-ROHAN 12/09 A1c 6.4% Lantus reduced- 2 lb weight loss since last visit- CGM supplies through [employer]- denies missing doses of medications- stopped her statin at the end of may due to leg cramps GERBER MAYS NP [address] [facility], [place], [phone], [facility] 07/08/2023 15:14:36 4 text/html Kasi is a 68 year old woman being seen in follow up for Type 2 Diabetes.Diabetes history:Diabetes type: Type 2Age at onset: 60Family History of diabetes: Father, sister, and other maternal family members.Last Dilated Eye Exam: 2023Ophthalmology Result: No report, no DR per patientOphthalmologist: [facility] EyeNephropathy present: NoLast DANIEL/CR: tnp 06/30/23Neuropathy: YesNeuropathy Type: PeripheralLast Foot Exam: 12/09/23ASCAD: NoPAD: NoDaily ASA: YesCo-Morbid Conditions: HTN, hyperlipidemia, BMI 35.2, LAE abnormality ([facility], 2011 US with fatty infiltration and serology negative, FIB-4 1.17 on 09/05/17), Strabismus ([facility] neuro-ophthalmology)MNT with Karen Fisher RDN 02/12/18DM Medications1. Ozempic 1 mg weekly2. Glipizide ER 10 mg daily3. Lantus 22 units at bedtimePrior DM and related medications:Metformin IR: GIMetformin ER: constipationSimvastatin : IntolerantAtorvastatin: leg achesReports intolerance to other statins, but not sure which and what type of reactionjanuvia: headaches, aggravates arthritisjardiance: recurrent yeast infectionTrulicity 1.5: max tolerated dose (nausea)Diabetes self management topics identified and discussed with patient today:-ROHAN 07/07 a1C 7.3 no changes to regimen- weight stable since last visit- CGM supplies through [employer]- denies missing doses of medications- reports tried rosuvastatin QOD, muscle aches, will not take another statin- skipping insulin once per month in fear of lows GERBER MAYS NP [address] [facility], [place], [phone], [facility] 12/09/2023 15:48:06 4 text/html 68 y/o female presents today with diarrhea. Pt states it started on Thursday and denies any other symptoms. She is having gurgling in the stomach, and pain in the stomach. DMB patient presents with diarrhea - started 1 week ago - unclear etiology - states going 5-10x per day/night. States stool is orange/yellow . No mucous or blood. States when it first started there was grease and fat on the water. No n/v. No urinary symptoms. No abd pain - just cramping before BM. No recent antibiotics. No known contaminated food or water. States started ezetimibe on Thursday - took one dose and then stopped. States blood sugars have been good. States she has been doing BRAT diet, does not want to take anti-diarrheal medication. Nandini Tellez MD [address] [place] [address], [id number], [facility] 12/27/2023 17:28:14 5 text/html Kasi is a 68 year old woman being seen in follow up for Type 2 Diabetes.Diabetes history:Diabetes type: Type 2Age at onset: 60Family History of diabetes: Father, sister, and other maternal family members.Last Dilated Eye Exam: 2023Ophthalmology Result: No report, no DR per patientOphthalmologist: [facility] EyeNephropathy present: NoLast DANIEL/CR: tnp 06/30/23Neuropathy: YesNeuropathy Type: PeripheralLast Foot Exam: 08/17/24ASCAD: NoPAD: NoDaily ASA: YesCo-Morbid Conditions: HTN, hyperlipidemia, BMI 35.2, LAE abnormality ([facility], 2011 US with fatty infiltration and serology negative, FIB-4 1.17 on 09/05/17), Strabismus ([facility] neuro-ophthalmology), CAD on chest CTMNT with Karen Fisher RDN 02/12/18DM Medications1. Ozempic 1 mg weekly2. Glipizide ER 10 mg daily3. Lantus 18 units at bedtimePrior DM and related medications:Metformin IR: GIMetformin ER: constipationSimvastatin : IntolerantAtorvastatin: leg achesReports intolerance to other statins, but not sure which and what type of reactionjanuvia: headaches, aggravates arthritisjardiance: recurrent yeast infectionTrulicity 1.5: max tolerated dose (nausea)Ezetimibe 10 mg: diarrheaDiabetes self management topics identified and discussed with patient today:-ROHAN 12/08 A1c 6.6 lantus reduced- unable to tolerate ezetimibe due to diarrhea- chest ct with moderate severe coronary artery calcifications- 2 lb weight loss since last visit- CGM supplies through [employer]- denies missing doses of medications- skipping insulin once per month in fear of lows GERBER MAYS, TORO [address] [place] [address], [place], [id number], [facility] 08/17/2024 14:43:42 OBGyn Episode No OBEpisode recorded.
--- OUTSIDE RECORDS SUMMARY | 2024-12-28 15:34 | XMS_ITS | Encounter Summary ---
Author Organization [facility] Address [address] [place] [address] Phone Care Team Providers Care Vice President Underwriting Name Role Phone Afshan Quiroz MD Primary Care Provider + Encounter Details Date Type Department Care Team (Late st Contact Info) Description 06/08/2017 Procedure Pass [facility] - [facility], [facility] [address] [place] [address] Social History Tobacco Use Types Packs/Day Years [...] on filedocumented in this encounter Care Teams Vice President Underwriting Relationship Specialty Start Date End Date Afshan Quiroz MD [address] [place] [phone] PCP - General Family Medicine 03/18/17 documented as of this encounter Additional Source Comments The information contained in this document represents components of the legal health record. It is not the complete legal health record.[facility]
== END 2024-12-28 14:17 | disposition home or self-care (01) ==
LOC: HO.HCS 12:58
PROVIDERS: PCP Internal Medicine
DX: R07.2 Precordial pain (principal); E78.5 Hyperlipidemia, unspecified; I10 Essential (primary) hypertension; E11.8 Type 2 diabetes mellitus with unspecified complications
CPT/HCPCS: 99214; G2211

== ENCOUNTER → 2024-12-28 12:58 | Outpatient (BNVA) | payer MEDICARE, MEDICAID, SELFPAY | PROVIDERS: PCP Internal Medicine | DX: R07.2 Precordial pain (principal); E78.5 Hyperlipidemia, unspecified; I10 Essential (primary) hypertension; E11.8 Type 2 diabetes mellitus with unspecified complications | CPT/HCPCS: 99212 ==

== ENCOUNTER 2025-01-09 15:53 | Outpatient (REF) | payer MEDICARE, OTHER, SELFPAY ==
[2025-01-09 16:57] LABS: Anion Gap 12 (12-20); Blood Urea Nitrogen 10 mg/dL (9-16); Calcium 9.3 mg/dL (8.4-10.2); Carbon Dioxide 32 mmol/L (22-29); Chloride 100 mmol/L (96-108); Estimated Glomerular Filt Rate > 60; Potassium 3.8 mmol/L (3.3-5.1); Sodium 140 mmol/L (135-145)
--- OUTSIDE RECORDS SUMMARY | 2025-01-09 20:15 | XMS_ITS | Clinical Summary ---
Author Organization [facility] [address] [facility] Address [address] [place] [address] Phone Care Team Providers Care Fruit Sprayer Name Role Phone Afshan Quiroz MD Primary Care Provider + [phone] Allergies Active Allergy Reactions Criticality Noted Date Comments Dpqxsjr-Vuw-Dtu Reductase Inhibitors 01/20/2024 Medications SODIUM BORATE, BULK, [...] Date Comments Hypothyroid Hyperlipidemia Hypertension Diabetes mellitus ([facility] V24, [facility] V28) Social History Tobacco Use [...] [place] [facility] [employer] Care Teams Fruit Sprayer Relationship Specialty Start Date End Date Afshan Quiroz MD [address] [place] [phone] PCP - General Family Medicine 12/05/23
--- OUTSIDE RECORDS SUMMARY | 2025-01-09 20:16 | XMS_ITS | Data Portability ---
Author Organization [place] [facility] Address [address] [place] [address] Care Team Providers Care Hog Buyer Name Role Phone STEPHANIE MCGRAW Primary Care Provider STEPHANIE MCGRAW Referring Provider STEPHANIE MCGRAW Primary Care Provider GERBER MAYS Agile Qa Tester Assessment No assessment recorded. Plan of Treatment Reminders Order Date Submit Date Provider Last Modified By Organization Details Last Modified Time Details Appointments ENDO-Foll ow Up-30 Min 2025 03:30P M GERBER MAYS NP Not available Not available Not available GASTRO COLONOSCO PY 30MIN 2025 11:30A M Jefry malagon MD Not available Not available Not available Lab HbA1c (hemoglob in A1c), blood [address] (Outpatient Registration) , [address] [place], [address], 08/17/2024 14:43:29 microalbu min, urine [address] (Outpatient Registration) , [address] [place], [address], 08/17/2024 14:43:28 vitamin B12, serum [address] (Outpatient Registration) , [address] [place], [address], 08/17/2024 14:43:28 lipid panel, serum 2024 025 [email or web address] [facility] (Outpatient Registration) , [address] [facility] [place], [address], 08/17/2024 14:43:28 lactoferr in, qualitati ve, stool 2023 024 [facility] Patient Reg, [address] [place] [address], [id number], 01/08/2024 16:13:18 culture, stool 2023 024 [facility] Patient Reg, [address] [place] [address], [id number], 12/29/2023 06:41:45 giardia lamblia Ag, EIA, stool 2023 024 [facility] Patient Reg, [address] [place] [address], [id number], 12/28/2023 11:10:22 ova + parasites , light microscop y, stool 2023 024 [facility] Patient Reg, [address] [place] [address], [id number], 01/01/2024 13:14:18 C diff toxin DNA, stool 2023 024 [facility] Patient Reg, [address] [place] [address], [id number], 01/08/2024 18:21:28 TSH, serum, reflex free T4 2022 023 [facility] Patient Reg, [address] [place] [address], [id number], 12/10/2022 09:19:19 Referral endocrino logy referral 2022 023 [email or web address] [facility]ology , [address], Entr [address], [place], [address], 01/07/2023 07:50:04 Procedures None recorded. Surgeries None recorded. Imaging None recorded. Medication Orders Ozempic 1 mg/dose (4 mg/3 mL) subcutane ous pen injector 2024 025 [id number] [facility], [address] [place], [place], [id number], 08/23/2024 14:39:30 Repatha SureClick 140 mg/mL subcutane ous pen injector 2024 025 [facility], [address], [address], [address], [place], [address], 08/17/2024 14:43:39 Ozempic 1 mg/dose (4 mg/3 mL) subcutane ous pen injector 2023 024 [id number] [facility] [address], [address] [place], [place], [id number], 08/23/2024 14:39:30 ezetimibe 10 mg tablet 2023 024 [facility] [address], [address] [place], [place], [id number], 08/17/2024 14:22:13 Ozempic 1 mg/dose (4 mg/3 mL) subcutane ous pen injector 2023 024 [id number] [facility] [address], [address] [place], [place], [id number], 08/23/2024 14:39:30 rosuvasta tin 5 mg tablet 2023 024 [facility] [address], [address] [place], [place], [id number], 12/09/2023 15:30:58 Patient TargetsNo targets recorded. Patient Instructions Encounter Date Encounter Id Patient Instructions Last Modified By Organization Details Last Modified Time 12/09/2022 [id number] Things to do aft er your visit [...] leave a message for Rakel Marie call [phone] [email or web address] Not available 12/09/2022 15:22:25 07/08/2023 [id number] Things to do aft er your visit [...] appointment will be 6 months with Gerber valels) To schedule or change an appointment, for any questions, or to leave a message for Rakel Marie call [phone] [email or web address] Not available 07/08/2023 15:11:25 12/09/2023 [id number] Things to do aft er your visit [...] leave a message for Rakel Marie call [phone] Not available 12/09/2023 15:44:21 12/25/2023 [id number] You have had an Urgent Care Visit [...] issues. [email or web address] Not available 12/25/2023 15:13:34 08/17/2024 [id number] Things to do aft er your visit [...] leave a message for Rakel Marie call [phone] Not available 08/17/2024 14:35:15 Reason for Referral Endocrinology Referral for A drenal adenoma history of adrenal nodules, stable on imaging Referring Physician: Gerber Mays, Endocrinology, Encounter Date: 12/09/2022 Results Created Date Observation Date Name Description Value Unit Range Abnormal Flag Note LastModifiedBy Organization Detail LastModifiedTime 12/06/1912/05/2022 COMPL ETE BLOOD COUNT AUTO DIFF white blood count 5.43 K/uL 3.5-11 .0 normal Not Available [facility] Department [address] [place] [address], [id number] 12/05/2022 12:29:18 12/06/1912/05/2022 COMPL ETE BLOOD COUNT AUTO DIFF red blood count 4.87 M/uL 3.60-4 .80 high Not Available [facility] [address] [place] [address], [address] 12/05/2022 12:29:18 12/06/19 23 12/05/2022 COMPL ETE BLOOD COUNT AUTO DIFF hemoglobin 13.9 g/dL 12.0-1 6.0 normal Not Available [facility] [address] [place] [address], [address] 12/05/2022 12:29:18 12/06/19 23 12/05/2022 COMPL ETE BLOOD COUNT AUTO DIFF hematocrit 42.8 % 36.0-4 8.0 normal Not Available [facility] [address] [place] [address], [address] 12/05/2022 12:29:18 12/06/19 23 12/05/2022 COMPL ETE BLOOD COUNT AUTO DIFF mean corpuscular volume 87.9 fL 79.0-9 8.0 normal Not Available [facility] Department [address] [place] [address], [address] 12/05/2022 12:29:18 12/06/19 23 12/05/2022 COMPL ETE BLOOD COUNT AUTO DIFF mean corpuscular hemoglobin 28.5 pg 25.4-3 4.6 normal Not Available [facility] Department [address] [place] [address], [address] 12/05/2022 12:29:18 12/06/1912/05/2022 COMPL ETE BLOOD COUNT AUTO DIFF mean corpuscular HGB conc 32.5 g/dL 30.0-3 6.0 normal Not Available [facility] Department [address] [place] [address], [address] 12/05/2022 12:29:18 12/06/1912/05/2022 COMPL ETE BLOOD COUNT AUTO DIFF red cell distribution width 13.5 % 11.5-1 4.5 normal Not Available [facility] Department [address] [place] [address], [address] 12/05/2022 12:29:18 12/06/1912/05/2022 COMPL ETE BLOOD COUNT AUTO DIFF platelet count 218 K/uL 150-40 0 normal Not Available [facility] [address] [place] [address], [address] 12/05/2022 12:29:18 12/06/1912/05/2022 MICRO ALBUM IN, RANDO M (W CREAT ) creatinine urine 51.70 mg/dL 28-217 normal Not Available [facility] Department [address] [place] [address], [address] 12/05/2022 12:37:21 12/06/1912/05/2022 MICRO ALBUM IN, RANDO M (W CREAT ) microalbumin urine < 1.2 mg/dL 0-2.9 normal Not Available [facility] Department [address] [place] [address], [address] 12/05/2022 12:37:21 12/06/1912/05/2022 MICRO ALBUM IN, RANDO M (W CREAT ) microalbum/c reatinine ratio ur TNP ug/mg cre 0-29 Unabl e to calcu late due to the micro album in resul t being less than the linea rity of the instr ument . Not Available [facility] Department [address] [place] [address], [address] 12/05/2022 12:37:21 12/06/19 23 12/05/2022 COMPR EHENS MARK MET. PANEL sodium 140 mmol/ L 136-14 5 normal Not Available [facility] Department [address] [place], [address] 12/05/2022 12:50:13 12/06/19 23 12/05/2022 COMPR EHENS MARK MET. PANEL potassium 4.0 mmol/ L 3.5-5. 1 normal Not Available [facility] Department [address] [place], [address] 12/05/2022 12:50:13 12/06/19 23 12/05/2022 COMPR EHENS MARK MET. PANEL chloride 103 mmol/ L 98-107 normal Not Available [facility] Department [address] [place], [address] 12/05/2022 12:50:13 12/06/19 23 12/05/2022 COMPR EHENS MARK MET. PANEL carbon dioxide 29.4 mmol/ L 22-29 high Not Available [facility] Department [address] [place] [address], [address] 12/05/2022 12:50:13 12/06/19 23 12/05/2022 COMPR EHENS MARK MET. PANEL anion gap 12 mmol/ L 10-20 normal Not Available [facility] Department [address] [place], [address] 12/05/2022 12:50:13 12/06/19 23 12/05/2022 COMPR EHENS MARK MET. PANEL blood urea nitrogen 11 mg/dL 8-23 normal Not Available [facility] Department [address] [place], [address] 12/05/2022 12:50:13 12/06/19 23 12/05/2022 COMPR EHENS MARK MET. PANEL creatinine 0.48 mg/dL 0.50-0 .90 low Not Available [facility] Department [address] [place] [address], [address] 12/05/2022 12:50:13 12/06/19 23 12/05/2022 COMPR EHENS [...] under the age of 18. Not Available [facility] Department [address] [place] [address], [address] 12/05/2022 12:50:13 12/06/19 23 12/05/2022 COMPR EHENS MARK MET. PANEL glucose 126 mg/dL 82-115 high Not Available [facility] Department [address] [place] [address], [address] 12/05/2022 12:50:13 12/06/19 23 12/05/2022 COMPR EHENS MARK MET. PANEL calcium 9.3 mg/dL 8.8-10 .2 normal Not Available [facility] Department [address] [place] [address], [address] 12/05/2022 12:50:13 12/06/19 23 12/05/2022 COMPR EHENS MARK MET. PANEL bilirubin total 0.4 mg/dL 0.2-1. 2 normal Not Available [facility] Department [address] [place] [address], [address] 12/05/2022 12:50:13 12/06/19 23 12/05/2022 COMPR EHENS MARK MET. PANEL aspartate amino transferase 16 U/L 5-32 normal Not Available [facility] Department [address] [place] [address], [address] 12/05/2022 12:50:13 12/06/19 23 12/05/2022 COMPR EHENS MARK MET. PANEL alanine aminotransfe rase 21 U/L 5-33 normal Not Available [facility] Department [address] [place], [address] 12/05/2022 12:50:13 12/06/19 23 12/05/2022 COMPR EHENS MARK MET. PANEL total protein 6.7 g/dL 6.4-8. 3 normal Not Available [facility] [address] [place] [address], [address] 12/05/2022 12:50:13 12/06/19 23 12/05/2022 COMPR EHENS MARK MET. PANEL albumin level 4.0 g/dL 3.5-5. 2 normal Not Available [facility] Department [address] [place], [address] 12/05/2022 12:50:13 12/06/19 23 12/05/2022 COMPR EHENS MARK MET. PANEL globulin 2.7 gm/dL 2.0-3. 5 normal Not Available [facility] Department [address] [place], [address] 12/05/2022 12:50:13 12/06/19 23 12/05/2022 COMPR EHENS MARK MET. PANEL albumin globulin ratio 1.5 % 1.1-2. 5 normal Not Available [facility] Department [address] [place], [address] 12/05/2022 12:50:13 12/06/19 23 12/05/2022 COMPR EHENS MARK MET. PANEL alkaline phosphatase 100 U/L 35-104 normal Not Available [facility] Department [address] [place], [address] 12/05/2022 12:50:13 12/06/19 23 12/05/2022 LIPID PANEL WITH REFLE X triglyceride s w/ reflex LDL 123 mg/dL 30-150 normal Refer ence Range s: <150 mg/dl Melinda l 150-1 99 mg/dl Borde rline High 200-4 99 mg/dl High >500 mg/dl Very High Not Available [facility] Department [address] [place], [address] 12/05/2022 12:50:14 12/06/19 23 12/05/2022 LIPID PANEL WITH REFLE X cholesterol 121 mg/dL 100-20 0 normal Not Available [facility] Department [address] [place], [address] 12/05/2022 12:50:14 12/06/1912/05/2022 LIPID PANEL WITH REFLE X LDL cholesterol calculated 54.4 mg/dL 0-100 normal Natio nal Daniela stero l Educa tion Progr am sugge sts the [employer]ollo [employer] refer ence range : Optim al <100 mg/dL Near optim al/ab ove optim al 100-1 29 mg/dL Borde rline high 130-1 59 mg/dL High 160-1 89 mg/dL Very high >190 mg/dL Not Available [facility] Department [address] [place], [address] 12/05/2022 12:50:14 12/06/19 23 12/05/2022 LIPID PANEL WITH REFLE X HDL cholesterol 42.0 mg/dL 40-60 normal Major risk facto r for CHD: <40 mg/dL Negat mark risk facto r for CHD: >=60 mg/dL Not Available [facility] Department [address] [place], [address] 12/05/2022 12:50:14 12/06/1912/05/2022 LIPID PANEL WITH REFLE X chol HDL ratio 2.88 Risk CHOL/ HDL CHOL/ HDL Ratio Male Femal e 1/2 AVERA GE 3.43 3.27 AVERA GE 4.97 4.44 2 X AVERA GE 9.55 7.05 3 X AVERA GE 23.39 11.04 Not Available [facility] Department [address] [place], [address] 12/05/2022 12:50:14 12/06/1912/05/2022 TSH REFLE X FREE T4 TSH reflex free T4 0.19 uIU/m L 0.27-4 .20 low Not Available [facility] Department [address] [place], [address] 12/05/2022 12:52:41 12/06/1912/05/2022 TOSHIA VILLAGRAN total cells counted 100 Not Available [facility] Department [address] [place], [address] 12/05/2022 12:55:44 12/06/19 23 12/05/2022 TOSHIA HADLEY AL neutrophils percent manual 72 % 35-66 high Not Available [facility] Department [address] [place] [address], [address] 12/05/2022 12:55:44 12/06/19 23 12/05/2022 TOSHIA HADLEY AL band neutrophils percent 2 % 0-3 normal Not Available [facility] Department [address] [place], [address] 12/05/2022 12:55:44 12/06/1912/05/2022 MANUA L DIFFE RENTI AL lymphocytes percent manual 16 % 25-45 low Not Available [facility] Department [address] [place], [address] 12/05/2022 12:55:44 12/06/19 23 12/05/2022 MANUA L DIFFE RENTI AL monocytes percent manual 10 % 0-13 normal Not Available [facility] Department [address] [place], [address] 12/05/2022 12:55:44 12/06/1912/05/2022 MANUA L DIFFE RENTI AL neutrophils absolute manual 4.02 K/uL 1.5-7. 5 normal Cauti on: Inter preta tion of ANC resul ts witho ut inclu bonnie of the WBC diffe renti al resul ts may lead to tammi eous diagn osis; for examp le, mariah ng myelo proli ferat mark or lymph oprol ifera tive disor ders. Not Available [facility] Department [address] [place], [address] 12/05/2022 12:55:44 12/06/1912/05/2022 MANUA L DIFFE RENTI AL lymphocytes absolute manual 0.87 K/uL 0.8-4. 8 normal Not Available [facility] Department [address] [place] [address], [address] 12/05/2022 12:55:44 12/06/1912/05/2022 MANUA L DIFFE RENTI AL monocytes absolute manual 0.54 K/uL 0.4-1. 3 normal Not Available [facility] [address] [place], [address] 12/05/2022 12:55:44 12/06/1912/05/2022 MANUA L DIFFE RENTI AL RBC morphology Normal Not Available [facility] Department [address] [place], [address] 12/05/2022 12:55:44 12/06/19 23 12/05/2022 HEMOG LOBIN [...] Consi stent with Diabe derek Not Available [facility] [address] [place] [address], [address] 12/05/2022 14:50:01 12/06/19 23 12/05/2022 FREE T4 (FREE THYRO XINE) free T4 (free thyroxine) 2.01 NG/dL 0.9-1. 7 high Not Available [facility] Department [address] [place] [address], [address] 12/05/2022 22:02:35 06/30/19 24 06/30/2023 TSH REFLE X FREE T4 free T4 (free thyroxine) TNP NG/dL 0.9-1. 7 Not Available [facility] [address] [place] [address], [address] 06/30/2023 19:24:27 06/30/19 24 06/30/2023 TSH REFLE X FREE T4 TSH reflex free T4 1.78 uIU/m L 0.27-4 .20 normal Not Available [facility] Department [address] [place] [address], [address] 06/30/2023 19:24:27 12/03/19 24 12/03/2023 LIPID PANEL WITH REFLE X triglyceride s w/ reflex LDL 160 mg/dL 30-150 high Refer ence Range s: <150 mg/dl Melinda l 150-1 99 mg/dl Borde rline High 200-4 99 mg/dl High >500 mg/dl Very High Not Available [facility] Department [address] [place] [address], [address] 12/03/2023 10:45:46 12/03/19 24 12/03/2023 LIPID PANEL WITH REFLE X cholesterol 196 mg/dL 100-20 0 normal Not Available [facility] Department [address] [place] [address], [address] 12/03/2023 10:45:46 1012/03/2023 LIPID PANEL WITH REFLE X LDL cholesterol calculated 128.0 mg/dL 0-100 high Natio nal Daniela stero l Educa tion Progr am sugge sts the [employer] refer ence range : Optim al <100 mg/dL Near optim al/ab ove optim al 100-1 29 mg/dL Borde rline high 130-1 59 mg/dL High 160-1 89 mg/dL Very high >190 mg/dL Not Available [facility] Department [address] [place], [address] 12/03/2023 10:45:46 12/03/1912/03/2023 LIPID PANEL WITH REFLE X HDL cholesterol 36.0 mg/dL 40-60 low Major risk facto r for CHD: <40 mg/dL Negat mark risk facto r for CHD: >=60 mg/dL Not Available [facility] Department [address] [place] [address], [address] 12/03/2023 10:45:46 12/03/1912/03/2023 LIPID PANEL WITH REFLE X chol HDL ratio 5.44 Risk CHOL/ HDL CHOL/ HDL Ratio Male Femal e 1/2 AVERA GE 3.43 3.27 AVERA GE 4.97 4.44 2 X AVERA GE 9.55 7.05 3 X AVERA GE 23.39 11.04 Not Available [facility] Department [address] [place] [address], [address] 12/03/2023 10:45:46 12/03/1912/03/2023 HEMOG LOBIN A1C hemoglobin [...] Consi stent with Diabe derek Not Available [facility] Department [address] [place], [address] 12/03/2023 14:16:58 12/26/1912/28/2023 GIARD IA AG STOOL EIA giardia Ag stool EIA NEGATI VE negati ve Perfo rmed at: 01 - [facility] [address], [place] [address] Lab Direc tor: Kristal Valderrama MD, Phone : [phone] Not Available [facility] Department [address] [place] [address], [address] 12/28/2023 11:10:22 12/26/1912/26/2023 STOOL CULTU RE results [...] ----- ----- ----- ----- -- PATIE NT: Elaine qiu,[facility] ACCT: [id number] LOC: LORRIE HOLM U: [id number] AGE/S X: 68/F ROOM: RE12/[address]: Veronica yi LACE MENDER : 12/06 BED: DIS: STATU S: GRICELDA CLI TLOC: ----- ----- ----- ----- ----- ----- ----- ----- ----- ----- ----- ----- ----- ----- ----- ----- ----- ----- -- SPEC #: [id number] JOAO: 12/25- 156 STATU S: COMP REQ #: [id number] RECD: 12/25- [address]: Veronica yi, LACE MENDER SOURC E: STOOL ENTR: 12/25- 156 OTHR [...] -- END OF REPOR T Not Available [facility] Department [address] [place] [address], [address] 12/29/2023 06:41:45 12/26/1901/01/2024 OVA AND KAMLA ITES ova + parasite exam FINAL REPORT . These resul ts were obtai mik using wet prepa ratio n(s) and trich jared stain ed smear . This test does not inclu de testi ng for Crypt ospor idium parvu m, Cyclo spora , or Micro spori nikole. Not Available [facility] Department [address] [place] [address], [address] 01/01/2024 13:14:18 12/26/19 24 01/01/2024 OVA AND KAMLA ITES op result 1 COMMEN T . No ova, cysts , or kamla ites seen. One negat mark speci men does not rule out the possi bilit y of a kamla itic infec tion. Perfo rmed at: 01 - [facility] [address] [place] [address] Lab Direc tor: Kristal Valderrama MD, Phone : [phone] Not Available [facility] Department [address] [place] [address], [address] 01/01/2024 13:14:18 08/06/1908/05/2024 LIPID PANEL WITH REFLE X triglyceride s 137 mg/dL 30-150 normal Refer ence Range s: <150 mg/dl Melinda l 150-1 99 mg/dl Borde rline High 200-4 99 mg/dl High >500 mg/dl Very High Not Available [facility] Department [address] [place] [address], [address] 08/05/2024 13:18:27 08/06/19 25 08/05/2024 LIPID PANEL WITH REFLE X cholesterol 183 mg/dL 100-20 0 normal Not Available [facility] Department [address] [place], [address] 08/05/2024 13:18:27 08/06/19 25 08/05/2024 LIPID PANEL WITH REFLE X LDL cholesterol direct TNP mg/dL 0-100 Not Available [facility] Department [address] [place], [address] 08/05/2024 13:18:27 08/06/19 25 08/05/2024 LIPID PANEL [...] mg/dL Very high >190 mg/dL Not Available [facility] Department [address] [place], [address] 08/05/2024 13:18:27 08/06/19 25 08/05/2024 LIPID PANEL WITH REFLE X HDL cholesterol 36.0 mg/dL 40-60 low Major risk facto r for CHD: <40 mg/dL Negat mark risk facto r for CHD: >=60 mg/dL Not Available [facility] Department [address] [place], [address] 08/05/2024 13:18:27 08/06/19 25 08/05/2024 LIPID PANEL WITH REFLE X chol HDL ratio 5.08 Risk CHOL/ HDL CHOL/ HDL Ratio Male Femal e 1/2 AVERA GE 3.43 3.27 AVERA GE 4.97 4.44 2 X AVERA GE 9.55 7.05 3 X AVERA GE 23.39 11.04 Not Available [facility] Department [address] [place], [address] 08/05/2024 13:18:27 08/06/19 25 08/05/2024 HEMOG LOBIN [...] Consi stent with Diabe derek Not Available [facility] Department [address] [place] [address], [address] 08/05/2024 18:58:35 Result Notes None recorded. Problems Name Problem SNOMED Code Status Onset Date Resolution Date Notes Provider Name and Address Organization Details Recorded Time Epigastric pain 92020546 Niko che [facility] 4 10:08:08 Chokes when swallowing 452224222 Completed 01/13/2018 Dima Price MD [address] [place] [address], [address], [facility] 8 17:40:01 Globus sensation Niko che [facility] 4 10:08:08 Nausea 141060816 Completed 01/13/2018 Dima Price MD [address] [place] [address], [address], [facility] 8 17:40:31 Gastroesoph ageal reflux disease 040468757 Niko che [facility] 4 10:08:08 Burping 917958710 Completed 01/13/2018 Dima Price MD [address] [place] [address], [address], [facility] 8 17:40:18 Abdominal bloating 770980000 Niko che [facility] 4 10:08:08 Loose stool 460004184 Niko che [facility] 4 10:08:08 Flatulence/ wind Completed 01/13/2018 Dima Price MD [address] [facility] [place], [address], [facility] 8 17:40:05 Helicobacte r pylori gastrointes tinal tract infection 454531797 Completed 01/13/2018 Dima Price MD [address] [facility] [place], [address], [facility] 8 17:40:25 Lumbar radiculopat hy 288134392 Active Sean Cevallos MD [address] [facility] [place], [address], [facility] 5 14:49:40 Lumbar spondylosis 074435420 Active Sean Cevallos MD [address] [facility] [place], [address], [facility] 6 16:49:27 Myofascial pain 778989078 Completed 01/13/2018 Dima Price MD [address] [facility] [place], [address], [facility] 8 17:40:22 Bursitis of hip 32515682 Active Sean Cevallos MD [address] [facility] [place], [address], [facility] 6 16:49:27 Adrenal adenoma 300501838 Active Sean Cevallos MD [address] [facility] [place], [address], [facility] 5 14:49:40 Uterine leiomyoma 12104935 Active Clarence Zaragoza MD [address] [facility] [place], [address], [facility] 6 20:10:23 Pain in pelvis 94609047 Completed 01/13/2018 Dima Price MD [address] [facility] [place], [address], [facility] 8 17:40:34 Osteoarthri tis of knee 328456010 [facility] 08:18:18 Diabetes mellitus 24673426 Completed 201701/13/2018 Dima Price MD [address] [place] [address] [place], [address], [facility] 8 17:39:34 Type 2 diabetes mellitus 30878836 Active 2017 Dima Price MD [address] [place] [address] [place], [address], [facility] 2 14:34:29 Hyperlipide ian 56839308 Active 2017 Dima Price MD [address] [place], [place] [address], [address], [facility] 2 14:34:29 Essential hypertensio n 79552338 Active 2017 Dima Price MD [address] [place], [place] [address], [address], [facility] 2 14:34:29 Primary hypothyroid ism 44870275 Active 2021 GERBER MAYS NP [address] [place], [place] [address], [address], [facility] 2 12:33:28 Coronary arterioscle rosis 77305048 Active 2024 GERBER MAYS NP [address] [place], [place] [address], [address], [facility] 5 14:40:38 Notes:Some problems listed i n Document: #[id number] could not be added to this patient's chart. Please review this document and add these problems to the patient's chart manually as needed. Problem Notes None recorded. Procedures Surgical History Date Name Laterality Status Provider Name and Address Organization Details Recorded Time 07/22/19 23 Corticosteroid Injection - KNEE completed ETIENNE BARBOSA [address] [place], [place] [address], [address], [facility] 07/21/2022 15:58:45 08/15/19 20 colonoscopy completed Dinah Santana [facility] 08/16/2019 14:39:01 05/27/19 17 Egd biopsy single/multiple completed Kayla Leoneiault [facility] 05/26/2016 11:50:19 12/21/19 13 cataract completed Peyman Guzman [facility] 06/28/2013 08:11:10 12/08/19 13 cataract completed Peyman Guzman [facility] 06/28/2013 08:11:10 10/18/19 11 cholectstectomy, lap completed Peymanradha Guzman [facility] 06/28/2013 08:11:10 08/10/19 11 colonoscopy completed Peymanradha Guzman [facility] 06/28/2013 08:11:10 01/25/20 04 Laparoscopy appendectomy completed Not Available [facility] 01/01/2011 06:32:15 02/16/18 97 thyroid surgery completed Adilene Hare CMA [facility] 05/18/2015 15:28:45 breast biopsy completed Kaitlynn Hare MA [facility] 12/13/2019 17:10:10 Imaging Results None recorded. Procedure Notes None recorded. Medical Equipment None Reported. Allergies Allergen ID Allergen Name Allergen Category Reaction Reaction Severity Criticality Documentation Date Start Date Code Code System Note Provider Name and Address Organization Details Recorded Time 607277 Substance with tetracycl ine structure (substanc e) medicatio n Not available Not available Not available 06/27/2013 65027 8001 SNOMED Peyman che [facility] 4 15:29:17 300808 Product containin g penicilli n (product) medicatio n Not available Not available Not available 12/20/2019 71609 8001 SNOMED YOLANDA Ventura [facility] 0 15:59:39 368913 Januvia medicatio n Not available Not available Not available 12/25/2020 99609 6 RxNorm YOLANDA Ventura [facility] 1 14:49:03 968344 Jardiance medicatio n Not available Not available Not available 12/25/2020 38604 59 RxNorm Coreen Romero MA null, [facility] 14:49:09 498734 ezetimibe medicatio n diarrhea Not available Not available 08/17/2024 23032 8 RxNorm Dayana Canales [facility], [facility] 14:22:25 021967 Product containin g 3-hydroxy -3-methyl glutaryl- coenzyme A reductase inhibitor (product) medicatio n Not available Not available Not available 10/27/2024 54375 009 SNOMED Laina Celis RN null, [facility] 11:23:07 Medications Name Sig Start Date Stop Date Status Note LastModified by Organization Details LastModified Time nevanac mena 0.1% active Not Available Not Available Not Available pot cl micro tab 10meq er active [...] E Not Available Not Available Not Available metronida zol cre 0.75% active Not Available Not Available Not Available genabio covid-19 rapid self test ki t 1-pack kit 08/17 completed Not Available Not Available Not Available lisinopri [...] completed Not Available Not Available Not Available GaviLyte- G 236 gram-22.7 4 gram-6.74 gram-5.86 gram oral solution Take 4000 mL by oral route for 1 day. 2024 active Not Available Not Available Not Avai lable B12 1 tab qd 08/17 completed Not [...] Not Available Not Available Not Available Afluria 2307-9209 (PF) 45 mcg (15 mcg x 3)/0.5 [...] Not Available Not Avai lable Fluarix Quad 3871-7654 (PF) 60 mcg (15 mcg x 4)/0.5 mL IM syringe 03/21 completed Not Available Not Available Not Available Flucelvax Quad 8487-0568 (PF) 60 mcg (15 mcg x 4)/0.5 mL IM syringe 12/13 completed Not Available Not Available Not Available Ozempic 0.25 mg or 0.5 mg (2 mg/1.5 mL) subcutane ous pen injector Inject 0.5 mg every week by subcutan eous route. 11/19 completed Not Available Not Available Not Available Sec[employer]St[employer]let[employer] Standard Sandra 14 Day Sensor kit USE TO [...] Updated DateTime 07/08/2023 154.94 cm 33.4 kg/m2 21844.85 g 69 /min 113/68 mm[Hg] Karen Chung [facility] 07/08/2023 14:47:49 Date Recorded Body height Body mass index (BMI) Body weight Systolic And Diastolic Provider Name and Address Organization Details Last Updated DateTime 08/17/2024 154.94 cm 33.3 kg/m2 12325.26 g 121/66 mm[Hg] Dayana Carlale [facility] 08/17/2024 14:24:17 Date Recorded Body height Body mass index (BMI) Body weight Systolic And Diastolic Provider Name and Address Organization Details Last Updated DateTime 12/09/2023 154.94 cm 33.6 kg/m2 78531.44 g 122/74 mm[Hg] Karen Sheldon [facility] 12/09/2023 15:34:32 Date Recorded Body height Body mass index (BMI) Body weight Systolic And Diastolic Provider Name and Address Organization Details Last Updated DateTime 12/09/2022 154.94 cm 33.1 kg/m2 54949.66 g 114/62 mm[Hg] Samiadonal Gold [facility] 12/09/2022 14:54:26 Date Recorded Body height Body temperature Oxygen saturation Heart rate Systolic And Diastolic Provider Name and Address Organization Details Last Updated DateTime 154.94 cm 97 [degF] 97 % 66 /min 138/78 mm[Hg] Ramona Lucio MA [facility] 14:38:15 Social History Question Answer Notes LastModified by Organizat ion Details LastModified Time Tobacco Smoking Status Former Smoker started in 1979 Peyman che [facility] 06/28/2013 08:11:10 Education 4 Year College Information not available 12/25/2014 Work Status Full-time Information n ot available 12/25/2014 Living Situation Other Informat ion not available 12/25/2014 Disabled? If Yes, How Long? No Information not available 12/25/2014 An Medical Certification Specialist Involved? If Yes, Who? No Information not available 12/25/2014 Alcohol Use No Information n ot available 12/25/2014 Do You Currently Or Have You Ever Used Recreational Drugs? If Yes, Specify No Information not available 12/25/2014 Any Addiction Or Substance/drug/a lcohol Abuse Issues? If Yes, Specify No Information not available 12/25/2014 Illicit Drugs No Information not available 06/28/2013 Marital Status Informatio n not available 12/25/2014 What Was The Date Of Your Most Recent Tobacco Screening? 07/03/2021 [email or web address] Information not available 07/03/2021 Are You Sexually Active? No edack Information not available 05/18/2015 How Much Tobacco Do You Smoke? 0.5 PPD Quit In 1996 [email or web address] Information not available 06/28/2013 Sex: Unknown Functional Status Question Answer Note LastModified by Organization D etails LastModified Time What is your level of alcohol consumption? None [email or web address] Information not available 06/28/2013 What is your occupation? retired [email or web address] Information not available 07/21/2022 Mental Status None [...] available 2015 15:28:45 Medical History Condition Response diabetes Y cancer N arthritis Y GERD / reflux Y heart disease N other Y CVA/stroke N anesthesia allergy/complications N headaches or migraines Y heartburn Y high cholesterol Y high blood pressure Y Gynecological History Statement/Question Response History of abnormal pap yes 05/18/2015 08/12/2014 Para 2 Last menstrual period Obstetrics History GPAL:G 3 P 2 0 0 2 Type Value Full Term 2 Living 2 Total 3 Past Encounters Encounter ID Performer Location Encounter Start Date Encounter Closed Date Diagnosis/Indication Diagnosis SNOMED-CT Code Diagnosis ICD10 Code Diagnosis IMO Codes Diagnosis Note [id number] [facility]ist [facility] - INPT [address] [place] [address] 01/25/2004 00:00:00 09/18/2005 03:57:43 [id number] Peyman Guzman NP [facility] [address] [address] 06/27/2013 14:34:24 07/14/2013 15:29:34 Epigastric pain 89291135 Chokes whe n swallowing 382780106 Globus sensation 02581426 Nausea 732268559 Gastroesop hageal reflux disease 763260223 Burping 074430631 [id number] Peyman Guzman NP [facility] [address] [address] 08/29/2013 15:27:50 09/14/2013 14:09:38 Gastroesophageal reflux disease 884444460 Epigastric pain 10972842 Burping 159219107 Nausea 935570031 Globus sensation 72162198 Chokes whe n swallowing 083084152 Abdominal bloating 819563645 Loose stool 008328083 Flatulence/wind 916756611 [id number] Sean Cevallos MD [facility] [address] [place] [address] [place] [address] 12/25/2014 11:11:49 12/25/2014 12:38:09 Lumbar radiculopathy 256109296 M54.16 Lumbar spondylosis 54936 0009 M47.896 Myofascial pain 04783600 9 M79.1 right sacral Bursitis of hip 77614550 M70.71 [id number] MD [facility] [address] [place] [address] [place] [address] 01/22/2015 13:44:05 01/22/2015 15:04:49 Lumbar radiculopathy 913617023 M54.16 Lumbar spondylosis 78324 0009 M47.896 Myofascial pain 69991635 9 M79.1 right sacral Bursitis of hip 55643025 M70.71 Adrenal adenoma 70018691 8 D35.00 Uterine leiomyoma 424102 05 D25.9 [id number] Sean Cevallos MD [facility] [address] [place] [address] [place] [address] 03/19/2015 15:59:29 03/19/2015 16:52:41 Lumbar spondylosis 992260063 M47.896 Myofascial pain 05410995 9 M79.1 right sacral Bursitis of hip 53019493 M70.71 Uterine leiomyoma 198501 05 D25.9 [id number] Clarence Zaragoza MD [facility] [address] [address] 05/18/2015 14:48:01 07/05/2015 07:30:30 Uterine leiomyoma 31537615 D25.9 Urinary incontinence 165 790060 R32 Screening for malignant neoplasm of cervix 681492703 Z12.4 Pain in pelvis 23431281 R10.2 [id number] Clarence Zaragoza MD [facility] [address] [address] 06/13/2015 15:47:46 06/21/2015 13:23:45 Uterine leiomyoma 78176665 D25.9 [id number] Nathan Garzon PA-C [facility] [address] [place] [address] 07/27/2015 17:29:20 07/27/2015 17:55:25 Acute pharyngitis 125868310 J02.9 rapid strep neg. on exam mild erythema. no exudate or enlarged tonsils. will call if culture dictates change in plan. advised rest, fluids, tea with honey, antihistam aaron. if symptoms worsen, dont improve see PCP or RTC. [id number] Roby Fonseca MD Orthoped[facility] [address] [address] 02/01/2016 08:48:43 02/01/2016 09:41:14 Osteoarthritis of knee 533846605 M17.12 60 yo F with L knee [...] also discuss NSAID regimen with PCP . [id number] Baldev Saunders MD [facility] [address] [facility] [address] [place] [address] 03/21/2016 14:56:05 03/21/2016 16:21:43 Esophageal dysphagia 13093958 R13.19 [id number] Dirk Jolly MD Orthopedi cs [address] [facility], [address] [place] [address] 05/15/2017 07:52:57 05/15/2017 08:19:08 Osteoarthritis of knee 091454558 M17.12 [id number] Juliana Ervin PA-C [facility] [address] [place] [address] 12/13/2017 16:28:39 12/14/2017 10:50:05 Upper respiratory infection 21211649 J06.9 Worsening cough with fever x7 days wth concern for infiltrate LLL. Treat as below. Advised rest, fluids, tylenol/ib uprofen PRN. Follow up in 2-3 days with PCP if not improving or sooner if worsening. Type 2 nikole betes mellitus without complication 874603211 E11.9 Pt with known DM type 2, glucose 194 today on exam. Advise f/u with PCP/endo for ongoing management [id number] Dima Price MD [facility] [address] [facility], [address] [place] [address] 01/13/2018 10:12:51 01/13/2018 11:23:36 Type 2 diabetes mellitus 09186415 E11.9 Mrs. Sarmiento has type 2 diabetes. [...] work on her fingerstic k technique. Hyperlipidemia 97356457 E78.2 The 2018 ADA diabetes standards of [...] it's appropriat e for her Essential hypertension 67896739 I10 Based on the 2018 ADA treatment [...] provider This report was prepared using voice recognitio n software. Please excuse any inadverten t errors caused by mistranscr iption. Chart opened and initial entries by Mamie Barbosa MA and [employer]air Coil Winder. I have reviewed and amended her entries and edited as indicated [id number] Endo Nurse [facility] [address] [place] [address] [address] [place] [address] 01/18/2018 15:00:06 01/18/2018 15:53:22 Type 2 diabetes mellitus 12021972 E11.9 Diabetes Education: Patient was seen by [...] Sandra CGM. Using a verio meter and delThree Melons lancet device patient was instructed step by [...] CGM, however the sensor was and the Hector is not compatible with the 14 day sensor. Today when the patient arrived I explained that the sensor the was dropped off was and the reader would not work for the newer 14 day sensor. With patient's permission I disposed of both items. I provided the patient with a 14 day sensor and 14 day reader. SENSOR code H86, SN: [id number] D. Hector code REF [id number] LOt [id number], SN [id number]. Patient was instructed on the use of the SANDRA PERSONAL CGM device. She states that the print and instructio ns on the electric needle specialist were too small so I printed the instructio ns in large print. Using and injection pad and the sensor patient was able to return demonstrat e the placement of the Sandra Personal sensor using excellent technique. Using sensor provided patient cleansed insertion site to upper arm with an alcohol pad, allowed area to dry, set up sensor, ensuring codes on lining caser and sensor matched, and placed first sensor, using excellent technique. She was able to hold reader over sensor and start the device. She understand s that the warm up period is 60 minutes, and then she will be able to obtain readings. Handouts: Step by step insertion guide Sandra manual Printed in large print Total time spent 1 hour. SOCORRO TateN, RN, CDE [id number] MD [facility] [address] [place] [address] [address] [place] [address] 04/12/2018 07:38:13 04/12/2018 08:22:27 Type 2 diabetes mellitus 18711416 E11.42 E11.65 Mrs. Sarmiento has type 2 [...] tolerated - follow up three months Hyperlipidemia 64644537 E78.2 Mrs. Sarmiento has a reasonable lipid profile on a moderate intensity statin. Triglyceri manuela should have improved with better glycemic control. Recommend: - Continue moderate intensity Smith - Fasting lipid profile next visit Essential hypertension 77107698 I10 Blood pressure iswell-con trolled today. She is taking an PHAM inhibitor, CCB and thiazide Recommend: - . Continue current antihypert ensives Admin notes A report was sent to the requesting provider This report was prepared using voice [employer]it[employer] n software. Please excuse any inadverten t errors caused by mistranscr iption. Chart opened and initial entries by Mamie Barbosa MA and [employer] Co[employer] Winder. I have reviewed and amended her entries and edited as indicated [id number] Dima Price MD [facility] [address] [facility] [address] [place] [address] 10/20/2018 15:52:47 10/20/2018 16:42:19 Type 2 diabetes mellitus 89208127 E11.42 E11.65 Mrs. Sarmiento has type 2 [...] ing. - follow up three months Hyperlipidemia 80721820 E78.2 Mrs. Sarmiento is on a moderate [...] Fasting lipid profile next visit Essential hypertension 07661080 I10 Blood pressure iswell-con trolled today. She is on an PHAM inhibitor, CCB and thiazide Recommend: - . Continue current antihypert ensives Admin notes A report was sent to the requesting provider This report was prepared using voice [employer] software. Please excuse any inadverten t errors caused by mistranscr iption. Chart opened and initial entries by Mamie Barbosa MA and Rep[employer] Co[employer] Winder. I have reviewed and amended her entries and edited as indicated [id number] [facility] [address] [facility] [address] [place] [address] 02/02/2019 14:54:32 02/02/2019 15:27:14 Type 2 diabetes mellitus 84420348 E11.42 E11.65 Mrs. Sarmiento has type 2 [...] ing. - follow up three months Hyperlipidemia 68576276 E78.2 Mrs. Sarmiento is on a moderate intensity dose of atorvastat in. Triglyceri manuela and LDL are higher than optimal. = Recommend: - Increase Atorvastat in to 20 mg daily (increase slowly due to previous statin intoleranc es) - Fasting lipid profile next visit Essential hypertension 12794102 I10 Blood pressure iswell-con trolled today. She is on an PHAM inhibitor, CCB and thiazide Recommend: - . Continue current antihypert ensives [id number] Endo Nurse [facility] [address] [facility] [address] [place] [address] 08/03/2019 10:37:56 08/03/2019 12:47:11 Type 2 diabetes mellitus 53407750 E11.9 Nurse visit [id number] Patient came in for her appointmen t today. She was provided a Sandra 14 sample sensor and electric needle specialist. Kasi has been using Sandra CGM for some time. She was able to accurately verbalize process for inserting and starting sensor. She wants to wait to insert sensor until after her mammogram and bone density scan today. Also provided Kasi with paper glucose log so that she can track her blood sugar readings 4 times daily for 2 weeks. aKsi instructed to call office with any questions or concerns. Made an appointmen t for her to return with sensor and electric needle specialist on 08/17/2019 at 4pm so that data can be uploaded. DEBI Tolbert, [place] [id number] Philippe Dolan MD [facility] [address] [place] [address] 08/03/2019 13:01:22 08/03/2019 13:34:36 History of polyp of colon 017864263 Z86.010 Family his tory of cancer of colon 918695394 Z80.0 Altered percy wel function 32023227 R19.4 The patient is concerned about a change in bowel movements, with possiible blood in the stool. We are scheduling the patient for a colonoscop y. [id number] Ashlyn Hassan MD [facility] [address] [place] [address], [address] [place] [address] 08/11/2019 18:47:33 08/11/2019 18:48:22 Viral screening 289549981 Z11.59 [id number] Endo Nurse [facility] [address] [facility] [address] [place] [address] 08/17/2019 14:25:43 08/17/2019 15:16:52 Type 2 diabetes mellitus 04643981 E11.9 Nurse visit [id number] Patient came in today after wearing Sandra sensor for 14 days. Kasi also kept a handwritte n glucose log. Able to upload Sandra data to [employer] site and print out report. Removed sensor from left arm, no bleeding or bruising noted, bandage applied. Kasi stated that she experience d some discomfort after inserting sensor. Reviewed with Kasi insertion technique, she verbalized understand ing. Will review report with Dr. 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 There are no other microvascu lar or macrovascu lar complicati ons. Her HgBA1c increased from 7.1% to 8.3%. 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 Lipids are improved. Tg is slightly elevated, and should improve with better glycemic control.. She has some statin intoleranc e, but is doing well on Atorvastat in 20 mg. Recommend: - Continue Atorvastat in to 20 mg Essential hypertension 23022702 I10 Blood pressure iswell-con trolled today. She is on an PHAM inhibitor, CCB and thiazide Recommend: - . Continue current antihypert ensives Hypothyroidism 64894342 E03.9 Kasi has primary hypothyroi dism. There is no history of goiter or thyroid nodules. TSH is normal on levothyrox ine. Recommend: - Continue levothyrox ine 125 mcg daily Admin notes A report was sent to the requesting provider This report was prepared using voice [employer] n software. Please excuse any inadverten t errors caused by mistranscr iption. Chart opened and initial entries by Alexa Garcia MA and [employer] W[employer]. I have reviewed and amended her entries and edited as indicated [id number] Ashlyn Hassan MD [facility] [address] [place] [address] 12/13/2019 13:23:21 12/13/2019 17:10:14 Viral screening 822389411 Z11.59 [id number] [facility] [address] [facility] [address] [place] [address] 12/20/2019 15:48:33 12/20/2019 16:34:50 Type 2 diabetes mellitus 14183415 E11.42 E11.65 Mrs. Sarmiento has type 2 [...] month - follow up three months Hyperlipidemia 34749575 E78.2 Lipids are improved. Tg is slightly elevated, and should improve with better glycemic control.. She has some statin intoleranc e, but is doing well on Atorvastat in 20 mg. Recommend: - Continue Atorvastat in to 20 mg Essential hypertension 63649005 I10 Blood pressure iswell-con trolled today. She is on an PHAM inhibitor, CCB and thiazide Recommend: - . Continue current antihypert ensives Hypothyroidism 07288407 E03.9 Kasi has primary hypothyroi dism. There is no history of goiter or thyroid nodules. TSH is normal on levothyrox ine. Recommend: - Continue levothyrox ine 125 mcg daily [id number] MD [facility] [address] [facility] [address] [place] [address] 12/25/2020 14:39:38 12/25/2020 15:28:01 Type 2 diabetes mellitus 40052191 E11.42 E11.65 Mrs. Sarmiento has type 2 [...] start basal-bolu s -Follow-up 3 months Hyperlipidemia 65582765 E78.2 Primary prevention . Lipids are very well controlled . She is on a moderate intensity statin. LDL is 48, triglyceri manuela 147. Recommend: -Continue to moderate intensity statin Essential hypertension 68970726 I10 Systolic blood pressure is minimally elevated today. She states blood pressures at her PCP office are at goal. She is on an PHAM inhibitor, CCB and thiazide. Recommend: -No changes made today -If necessary for better blood pressure control we can increase the PHAM or the CCB Hypothyroidism 94408165 E03.9 Kasi has primary hypothyroi dism. There is no history of goiter or thyroid nodules. Her TSH in August was normal on levothyrox ine replacemen t. Recommend: - Continue levothyrox ine 125 mcg daily-TSH annually Admin notes A report was sent to the requesting provider Portions of the record were created with [employer] software. Occasional wrong-word or sound-a-tahmina ke substituti ons may have occurred due to the inherent limitation s of voice [employer] n software. Please read the chart carefully and recognize, using context, where substituti ons have occurred. Chart opened and initial entries by Alexa Garcia MA and [employer] Winder. I have reviewed and amended her entries and edited as indicated I spent 51 minutes in reviewing the record, seeing the patient and frannyin ruthie in the medical record. [id number] Dima Price MD [facility] [address] [place] [address] [address] [place] [address] 03/26/2021 15:44:30 03/26/2021 16:15:08 Type 2 diabetes mellitus 04287158 E11.42 E11.65 Z79.4 Mrs. Sarmiento has type [...] can add prandial -Follow-up 3 months Hyperlipidemia 92075000 E78.2 Primary prevention . Lipids are well controlled on a moderate intensity statin. LDL 68, triglyceri de 149. Recommend: -Continue moderate intensity statin. Essential hypertension 66799999 I10 Blood pressure is reasonably controlled today. She is on an PHAM inhibitor, CCB, and thiazide. Recommend: -Continue current antihypert ensives Hypothyroidism 55042492 E03.9 Primary hypothyroi dism with no history of goiter or thyroid nodules. TSH in January was normal. Recommend: -Continue levothyrox ine 125 mcg daily. -Check TSH annually Admin notes A report was sent to the requesting provider Portions of the record were created with voice [employer] n software. Occasional wrong-word or sound-a-li ke substituti ons may have occurred due to the inherent limitation s of voice recognitio n software. Please read the chart carefully and recognize, using context, where substituti ons have occurred. Chart opened and initial entries by Mamie Barbosa MA and Repair Coil Winder. I have reviewed and amended her entries and edited as indicated I spent 28 minutes in reviewing the record, seeing the patient and frannyin ruthie in the medical record. Time excludes CGM interpreta tion [id number] Yuniel Kim NP, S [facility] [address] [place] [address] 06/25/2021 15:00:19 06/25/2021 15:32:01 Acute sinusitis 94675124 J01.90 Suspect bacterial infection at this time. [...] are not improving or have worsened. Cough [id number] R05.1 [id number] Dmia Price MD [facility] [address] [place] [phone] 07/03/2021 14:28:21 07/03/2021 15:13:06 Type 2 diabetes mellitus 91743995 E11.42 E11.65 Z79.4 Mrs. Sarmiento has type [...] next time we can add prandial Hyperlipidemia 75137546 E78.2 Primary prevention . Lipids were very well controlled in March on a moderate intensity statin. LDL 68, triglyceri de 149. Recommend: -Continue moderate intensity statin Essential hypertension 33335380 I10 Blood pressure is well controlled today. She is on an PHAM inhibitor, CCB, and thiazide. She does not have albuminuri a Recommend: -Continue current antihypert ensives Hypothyroidism 85428300 E03.9 Primary hypothyroi dism. There is no history of goiter or thyroid nodules. TSH in January was normal. Recommend: -Continue levothyrox ine 125 mcg daily.-Nellie ck TSH annually Admin notes A report was sent to the requesting provider Portions of the record were created with [employer] software. Occasional wrong-word or sound-a-li ke substituti ons may have occurred due to the inherent limitation s of voice [employer] n software. Please read the chart carefully and recognize, using context, where substituti ons have occurred. Chart opened and initial entries by Alexa Garcia MA and Repair Coil Winder. I have reviewed and amended her entries and edited as indicated [id number] GERBER MAYS NP [facility] [address] [place] [address] [address] [place] [phone] 10/24/2021 13:55:05 10/24/2021 14:28:58 Type 2 diabetes mellitus 17594692 E11.42 E11.65 Z79.4 Mrs. Sarmiento has type [...] prescripti on- ly follow up here Hyperlipidemia 44778942 E78.2 Primary prevention . Lipids were very well controlled in March on a moderate intensity statin. LDL 68, triglyceri de 149. Recommend: -Continue moderate intensity statin Essential hypertension 08225028 I10 Blood pressure is well controlled today. She is on an PHAM inhibitor, CCB, and thiazide. She does not have albuminuri a Recommend: -Continue current antihypert ensives Hypothyroidism 18953477 E03.9 Primary hypothyroi dism. There is no history of goiter or thyroid nodules. TSH is low on her current dose of Levothyrox ine Recommend: -REDUCE Levothyrox ine to 112 mcg daily mcg daily.-Nellie ck TSH in 6 weeks [id number] GERBER MAYS NP [facility] [address] [place] [address] [address] [place] [address] 01/30/2022 15:31:01 01/30/2022 15:50:29 Type 2 diabetes mellitus 31802849 E11.42 E11.65 Z79.4 Mrs. Sarmiento has type [...] mg weekly-austyn rterly follow up here Hyperlipidemia 58445453 E78.2 Primary prevention . Lipids were very well controlled this month on a moderate intensity statin. LDL 678, triglyceri de 156 Recommend: -Continue moderate intensity statin Essential hypertension 93269390 I10 Blood pressure is well controlled today. She is on an PHAM inhibitor, CCB, and thiazide. She does not have albuminuri a Recommend: -Continue current antihypert ensives Hypothyroidism 65726625 E03.9 Primary hypothyroi dism. There is no history of goiter or thyroid nodules. She is now euthyroid since reducing her Levothyrox ine dose last visit. Recommend: -Continue Levothyrox ine to 112 mcg daily mcg daily. [id number] GERBER MAYS NP [facility] [address] [place] [address] 06/11/2022 15:15:44 06/11/2022 15:42:02 Type 2 diabetes mellitus 24327393 E11.42 E11.65 Z79.4 Mrs. Sarmiento has type [...] mg weekly-austyn rterly follow up here Hyperlipidemia 27843226 E78.2 Primary prevention . Lipids were very well controlled this month on a moderate intensity statin. LDL 51 Recommend: -Continue moderate intensity statin Essential hypertension 86450608 I10 Blood pressure is well controlled today. She is on an PHAM inhibitor, CCB, and thiazide. She does not have albuminuri a Recommend: -Continue current antihypert ensives Hypothyroidism 55321631 E03.9 Primary hypothyroi dism. There is no history of goiter or thyroid nodules. She is currently euthyroid. She reports brittle nails and hair thinning, she prefers to keep her TSH higher, we will increase her dose today and repeat in 6 weeks. Recommend: -Continue Levothyrox ine to 112 mcg daily mcg daily. [id number] ETIENNE BARBOSA Orthopedi cs [address], [address] [place] [address] 07/21/2022 14:43:59 07/21/2022 15:27:48 Osteoarthritis of right knee joint [id number] 20998 M17.11 This a very pleasant 66-year-ol d [...] the left knee. Patient agrees with plan. [id number] GERBER MAYS NP [facility] [address] [place] [address], [address] [place] [address] 12/09/2022 14:47:31 12/11/2022 08:14:27 Type 2 diabetes mellitus 08776881 E11.42 E11.65 Z79.4 Mrs. Sarmiento has type [...] mg weekly-austyn rterly follow up here Hyperlipidemia 09374573 E78.2 Primary prevention . Lipids were very well controlled this month on a moderate intensity statin. LDL 54 Recommend: -Continue moderate intensity statin Essential hypertension 61403826 I10 Blood pressure is well controlled today. She is on an PHAM inhibitor, CCB, and thiazide. She does not have albuminuri a Recommend: -Continue current antihypert ensives Hypothyroidism 12954877 E03.9 Primary hypothyroi dism. There is no history of goiter or thyroid nodules. Recommend: -REDUCE Levothyrox ine to 125 mcg 6 tablets per week, repeat TSH in 6 weeks Adrenal adenoma 39531344 8 D35.[address] Arredondo, has not been seen since 2016. She also has a history of postoperat mark hypothyroi dism, with partial parathyroi dectomy. Per Dr. Arredondo notes adrenal masses were stable and low risk malignancy . [id number] GERBER MAYS NP [facility] [address] [place] [address] 07/08/2023 14:30:17 07/08/2023 15:21:33 Type 2 diabetes mellitus 74235944 E11.42 E11.65 Z79.4 Mrs. Sarmiento has type [...] mg weekly-austyn rterly follow up here Hyperlipidemia 11919885 E78.2 Primary prevention . Lipids are historical ly well controlled on statin therapy, she unfortunat kelly is getting myalgias, she will trial Rosuvastat in 5 mg QOD and has follow up with PCP next week, may need ezetimibe Essential hypertension 40196935 I10 Blood pressure is well controlled today. She is on an PHAM inhibitor, CCB, and thiazide. She does not have albuminuri a Recommend: -Continue current antihypert ensives Hypothyroidism 75788027 E03.9 Primary hypothyroi dism. There is no history of goiter or thyroid nodules. Recommend: -REDUCED Levothyrox ine to 125 mcg 6 tablets per week at last visit, TSH now normal [id number] [facility] [address] [place] [address] 12/09/2023 15:20:25 12/09/2023 15:47:21 Type 2 diabetes mellitus 07620350 E11.42 E11.65 Z79.4 Mrs. Sarmiento has type [...] mg weekly-austyn rterly follow up here Hyperlipidemia 19076552 E78.2 Primary prevention . Lipids are historical ly well controlled on statin therapy, she unfortunat kelly is getting myalgias and has failed rechalleng e. Will start Ezetimibe today Essential hypertension 40942873 I10 Blood pressure is well controlled today. She is on an PHAM inhibitor, CCB, and thiazide. She does not have albuminuri a Recommend: -Continue current antihypert ensives Hypothyroidism 73360857 E03.9 Primary hypothyroi dism. There is no history of goiter or thyroid nodules. Recommend: - Levothyrox ine to 125 mcg 6 tablets per week at last visit, TSH now normal [id number] Dixie Rodriguez NP [facility] [address] [place] [address] 12/25/2023 13:59:29 12/25/2023 15:24:10 Diarrhea of presumed infectious origin 02377758 A09 - exam WNl, vss- ? d/t zetia although taken only one dose - could be an irritant colitis s/p medication - encouraged BRAT diet, increased fluids- check stool studies- pt does not want to take an anti-diarr hea- f/u if not improving/ worsening for further evaluation [id number] GERBER MAYS NP [facility] [place] [facility] [address] [place] [address] 08/17/2024 14:13:07 08/25/2024 06:30:04 Type 2 diabetes mellitus 71703697 E11.42 E11.65 Z79.4 Mrs. Sarmiento has type [...] mg weekly-austyn rterly follow up here Hyperlipidemia 61681595 E78.2 Secondary prevention , unable to tolerate statins or ezetimibe, LDL 120, will start PCSK9i Essential hypertension 05156019 I10 Blood pressure is well controlled today. She is on an PHAM inhibitor, CCB, and thiazide. She does not have albuminuri a Recommend: -Continue current antihypert ensives Hypothyroidism 09532458 E03.9 Primary hypothyroi dism. There is no history of goiter or thyroid nodules. Recommend: - Levothyrox ine to 125 mcg 6 tablets per week at last visit, TSH now normal Coronary arteriosclerosis 54721094 I25.10 062922317 Moderate severe coronary artery calcificat ions on [...] Guarantor Name 12/09/2023 2 [employer] Kasi Sarmiento [id number] Kasi Sarmiento 12/09/2023 1 MEDICAID[place]: [facility] PL[facility] Kasi Sarmiento [id number] Kasi Sarmiento 12/09/2023 2 [place] [facility] Kasi Sarmiento [id number] Kasi Sarmiento 12/09/2023 1 [facility] (O) Kasi Sarmiento [id number] Kasi Sarmiento 12/09/2023 1 [facility] [id number] Kasi Sarmiento [id number] Kasi Sarmiento 12/09/2023 1 [facility] (O) [id number] Kasi Sarmiento [id number] Kasi Sarmiento 12/26/2024 2 [place] [facility] Kasi Sarmiento [id number] Kasi Sarmiento 12/26/2024 1 [facility] (MEDICARE REPLACEMENT HMO) Kasi Sarmiento [id number] Kasi Sarmiento 12/09/2023 1 MEDICARE B-[place]: [facility] Kasi Sarmiento [id number] Kasi Sarmiento 12/09/2023 1 HEALTH PLANS [facility] (PPO) Kasi Sarmiento [id number] Kasi Sarmiento 12/09/2023 1 [facility] [id number] Kasi Florezard [id number] Kasi Sarmiento 12/09/2023 2 [facility] (MEDICAID HMO) [id number] Kasi Florezard [id number] Kasi Sarmiento 12/09/2023 1 [facility] [id number] Kasi Shankar Torsten [id number] Tashasandiegregg Shankar Torsten Notes Date Note Type Note Provider Name and Address Organization Details Recorded Time 3 text/html Kasi is a 66 year old woman being seen in follow up for Type 2 Diabetes.Diabetes history:Diabetes type: Type 2Age at onset: 60Family History of diabetes: Father, sister, and other maternal family members.Last Dilated Eye Exam: 2Ophthalmology Result: No report, no DR per patientOphthalmologist: [facility] EyeNephropathy present: NoLast DANIEL/CR: NOT DETECTED 12/05/22Neuropathy: YesNeuropathy Type: PeripheralLast Foot Exam: 12/09/22ASCAD: NoPAD: NoDaily ASA: YesCo-Morbid Conditions: HTN, hyperlipidemia, BMI 35.2, LAE abnormality ([facility], 2011 US with fatty infiltration and serology negative, FIB-4 1.17 on 09/05/17), Strabismus ([facility] neuro-ophthalmology)MNT with Karen Fisher RDN 02/12/18DM Medications1. [...] loss since last visit- CGM supplies through - increase levothyroxine dose last visit, TSH now low, does not want to change dose as hair has improved-some overnight lows- denies missing doses of medications- found old paperwork regarding adrenal mass, wonders if she needs additional work up, previously followed by dr. blanco MAYS, LACE MENDER [address] [place] [address], [phone], [facility] 12/09/2022 16:14:31 4 text/html Kasi is a 67 year old woman being seen in follow up for Type 2 Diabetes.Diabetes history:Diabetes type: Type 2Age at onset: 60Family History of diabetes: Father, sister, and other maternal family members.Last Dilated Eye Exam: 2023Ophthalmology Result: No report, no DR per patientOphthalmologist: [facility] EyeNephropathy present: NoLast DANIEL/CR: tnp 06/30/23Neuropathy: YesNeuropathy Type: PeripheralLast Foot Exam: 07/08/23ASCAD: NoPAD: NoDaily ASA: YesCo-Morbid Conditions: HTN, hyperlipidemia, BMI 35.2, LAE abnormality ([facility], 2011 US with fatty infiltration and serology negative, FIB-4 1.17 on 09/05/17), Strabismus ([facility] neuro-ophthalmology)MNT with Karen Fisher RDN 02/12/18DM Medications1. [...] topics identified and discussed with patient today:-ROHAN 10/24 A1c 6.4% Lantus reduced- 2 lb weight loss since last visit- CGM supplies through [employer]- denies missing doses of medications- stopped her statin at the end of may due to leg cramps GERBER MAYS NP [address] [facility], [place], [address], [place] [facility] 07/08/2023 15:14:36 4 text/html Kasi is a 68 year old woman being seen in follow up for Type 2 Diabetes.Diabetes history:Diabetes type: Type 2Age at onset: 60Family History of diabetes: Father, sister, and other maternal family members.Last Dilated Eye Exam: 2023Ophthalmology Result: No report, no DR per patientOphthalmologist: [facility] EyeNephropathy present: NoLast DANIEL/CR: tnp 06/30/23Neuropathy: YesNeuropathy Type: PeripheralLast Foot Exam: 12/09/23ASCAD: NoPAD: NoDaily ASA: YesCo-Morbid Conditions: HTN, hyperlipidemia, BMI 35.2, LAE abnormality ([facility], 2011 US with fatty infiltration and serology negative, FIB-4 1.17 on 09/05/17), Strabismus ([facility] neuro-ophthalmology)MNT with Karen Fisher RDN 02/12/18DM Medications1. [...] fear of lows GERBER MAYS NP [address] [facility], [place], [address], [facility] 12/09/2023 15:48:06 4 text/html 68 [...] to take anti-diarrheal medication. Nandini Tellez MD [address] [place] [address], [place], [address], [facility] 12/27/2023 17:28:14 5 text/html aKsi is a 68 year old woman being seen in follow up for Type 2 Diabetes.Diabetes history:Diabetes type: Type 2Age at onset: 60Family History of diabetes: Father, sister, and other maternal family members.Last Dilated Eye Exam: 2023Ophthalmology Result: No report, no DR per patientOphthalmologist: [facility] EyeNephropathy present: NoLast DANIEL/CR: tnp 06/30/23Neuropathy: YesNeuropathy Type: PeripheralLast Foot Exam: 08/17/24ASCAD: NoPAD: NoDaily ASA: YesCo-Morbid Conditions: HTN, hyperlipidemia, BMI 35.2, LAE abnormality ([facility], 2011 US with fatty infiltration and serology negative, FIB-4 1.17 on 09/05/17), Strabismus ([facility] neuro-ophthalmology), CAD on chest CTMNT with Karen [...] in fear of lows GERBER MAYS, TORO [address] [place] [address], [place], [phone], [facility] 08/17/2024 14:43:42 OBGyn Episode No OBEpisode recorded.
--- OUTSIDE RECORDS SUMMARY | 2025-01-09 20:16 | XMS_ITS | Encounter Summary ---
Author Organization [facility] Address [address] [place] [address] Phone Care Team Providers Care Paralegal Supervisor Name Role Phone Afshan Quiroz MD Primary Care Provider + Encounter Details Date Type Department Care Team (Late st Contact Info) Description 06/08/2017 Procedure Pass [facility], [facility] [address] [place] [address] Social History Tobacco Use Types Packs/Day Years [...] on filedocumented in this encounter Care Teams Paralegal Supervisor Relationship Specialty Start Date End Date Afshan Quiroz MD [address] [facility] [address] [place] [address] PCP - General Family Medicine 03/18/17 documented as of this encounter Additional Source Comments The information contained in this document represents components of the legal health record. It is not the complete legal health record.[facility]
--- OUTSIDE RECORDS SUMMARY | 2025-01-09 20:16 | XMS_ITS | Clinical Summary ---
Author Organization [facility] Address [address] [place] [address] Care Team Providers Care Propagator Name Role Phone Afshan Quiroz Sophie Primary Care Provider [phone] Allergies Active Allergy Reactions Criticality Noted Date [...] 2024 , 12/26/2019, 2018, Additional history exists COVID-19 Vaccine (2024- season) 2024 12/05/2020, 05/02/2020, 04/10/2020 RSV Vaccine (60+ years old and patients) [...] not be sharing negative HIV tests. * [facility] Left Stereotactic Breast Biopsy (10/10/2021 [...] Breast Biopsy PATRICIA Left Breast Specimen [place] [facility] Left Diagnostic Digital Mammo Post US/MRI/Stereo INDICATIONS Kasi Sarmiento is a 65 y.o. female and is seen for: PATRICIA Left Stereotactic Breast Biopsy PATRICIA Left Breast Specimen [place] [facility] Left Diagnostic Digital Mammo Post [...] patient's Left breast was imaged with the [facility] stereotactic biopsy unit, and the following [...] Most Recently Relevant to Health Maintenance Insurance [facility] Advance Directives Documents on File Type Date Recorded Patient Jewel Flat Surfacer Expl anation Health Care Proxy 12/17/2016 8:43 AM Care Teams Propagator Relationship Specialty Start Date End Date Afshan Quiroz [address] [facility] [place] [address] PCP - General 09/04/16
--- OUTSIDE RECORDS SUMMARY | 2025-01-09 20:16 | XMS_ITS | Encounter Summary ---
Author Organization [facility] Address [address] [place] [address] Phone Care Team Providers Care Electrician Assistant Name Role Phone Afshan Quiroz MD Primary Care Provider + Encounter Details Date Type Department Care Team (Late st Contact Info) Description 03/26/2018 Procedure Pass [facility] [address] [place] [address] Social History Tobacco Use Types Packs/Day Years [...] on filedocumented in this encounter Care Teams Electrician Assistant Relationship Specialty Start Date End Date Afshan Quiroz MD [address] [place] [address] [address] [place] [phone] PCP - General Family Medicine 03/18/17 documented as of this encounter Additional Source Comments The information contained in this document represents components of the legal health record. It is not the complete legal health record.[facility]
--- OUTSIDE RECORDS SUMMARY | 2025-01-09 20:16 | XMS_ITS | Encounter Summary ---
Author Organization [facility] Address [address] [place] [address] Phone Care Team Providers Care Engineering Design Manager Name Role Phone Afshan Quiroz MD Primary Care Provider + Encounter Details Date Type Department Care Team (Late st Contact Info) Description 09/23/2017 Procedure Pass [facility] [address] [place] [address] Social History Tobacco Use Types Packs/Day Years [...] on filedocumented in this encounter Care Teams Engineering Design Manager Relationship Specialty Start Date End Date Afshan Quiroz MD [address] [place] [address] [address] [place] [phone] PCP - General Family Medicine 03/18/17 documented as of this encounter Additional Source Comments The information contained in this document represents components of the legal health record. It is not the complete legal health record.[facility]
--- OUTSIDE RECORDS SUMMARY | 2025-01-09 20:16 | XMS_ITS | Clinical Summary ---
Author Organization [facility] Address [address] [facility] [address] [place] [address] Phone Care Team Providers Care Water Softener Installer Name Role Phone Afshan Quiroz MD Primary Care Provider + Allergies Active Allergy Reactions Criticality Noted Date Comments Tmjbqnk-Zgn-Fgv Reductase Inhibitors 09/17/2017 Muscle aches Tetracyclines 06/08/2017 [...] (two) times a day. Active Ca cit-D3-mag#11-zi we-emth-zpr-bor (CALTRATE 600+D) 600 mg calcium- 800 unit-50 [...] this topic Medical Devices Implanted Type Area Automobile Spring Repairer Device Identifier Shelf Expiration Date Model / Serial / Lot Lens Lens Description:IOL Procedures Procedure Name Priority Date/Time Associated Diagnosis Comments TSH WITH REFLEX Routine 06/08/2017 12:09 PM EDT Diplopia from Last 3 Months or Most Recently Relevant to Health Maintenance Results * TSH with reflex (06/08/2017 12:09 PM EDT) SCREENING PANEL: TSH 1.44 0.40 - 5.00 uIU/mL [facility] Comment:NOTE: New method as of August 14, 2009. Blood 06/08/2017 12:0 9 PM EDT 06/08/2017 12:48 PM EDT us Nam M Cestari MD LAB BLOOD BKR ORDERABLES Final Result [facility] [place] [address], [facility] from Last 3 Months or Most Recently Relevant to Health Maintenance Insurance [employer] POS PPO REPLACEMENT [employer] PPO REPLACEMENT [employer] PPO REPLACEMENT [employer] POS PPO REPLACEMENT [address] [facility] [address] [place] [id number] [employer] POS PPO REPLACEMENT [employer] PPO REPLACEMENT [employer] PPO REPLACEMENT Advance Directives For more information, please contact: [phone] (9AM - 5PM [facility], Thursday-Thursday) Documents on File Type Date Recorded Patient Manager Basketball Expl [employer] Proxy 03/29/2018 3:24 PM Care Teams Water Softener Installer Relationship Specialty Start Date End Date Afshan Quiroz MD [address] [place] [phone] PCP - General Family Medicine 03/18/17 Additional Source Comments The information contained in this document represents components of the legal health record. It is not the complete legal health record.[facility]
== END 2025-01-09 15:54 | disposition home or self-care (01) ==
LOC: HO.LAB 15:53
DX: R07.2 Precordial pain (principal)
CPT/HCPCS: 36415; 80048